=== PATIENT | male | born 1965 | race Caucasian/White ===

== ENCOUNTER 2018-03-08 11:50 | Day surgery (SDC) | payer BC ==
[~2018-03-08 11:50] MED LIST: ALPRAZolam 0.25 MG TAB PO PRN; ALPRAZolam 0.5 MG TAB PO PRN; ASPIRIN 325 MG TAB PO STA; ATORVASTATIN 80 MG TAB PO STA; NITROGLYCERIN SL TABS 0.4 MG TAB SUBLINGUAL PRN; SODIUM CHLORIDE 0.9% 1,000 ML in EMPTY BAG 1 BAG IV ONE
[2018-03-08] MEDS ORDERED: INSULIN ASPART 100 UNIT/ML 1 ML 10 ML VIAL SQ STA (12:38)
[2018-03-08 12:42] LABS: Basophils % (A) 1 %; Eosinophils # (A) 0.1 k/uL (0-0.7); Eosinophils % (A) 2 %; HCT 43.5 % (39.0-53.0); HGB 15.1 gm/dL (13.0-17.5); Lymphocytes # (A) 2.1 k/uL (1.0-4.8); Lymphocytes % (A) 34 %; MCH 30.6 pg (25.0-35.0); MCHC 34.7 g/dL (31.0-37.0); MCV 88.1 fL (80.0-100.0); Monocytes # (A) 0.4 k/uL (0-1.0); Monocytes % (A) 7 %; Neutrophils # (A) 3.3 k/uL (1.3-7.7); Neutrophils % (A) 55 %; Platelet Count 305 k/uL (150-450); RBC 4.94 m/uL (4.30-5.90); RDW 12.8 % (11.5-15.5); WBC 6.1 k/uL (3.8-10.6)
[2018-03-08 12:50] LABS: Anion Gap 16 mmol/L; Blood Urea Nitrogen 18 mg/dL (9-20); Calcium 10.2 mg/dL (8.4-10.2); Carbon Dioxide 22 mmol/L (22-30); Chloride 101 mmol/L (98-107); Glucose 256 mg/dL (74-99); Potassium 4.8 mmol/L (3.5-5.1); Sodium 139 mmol/L (137-145)
[2018-03-08 12:58] LABS: Glucose,Whole Blood 267 mg/dL (75-99)
[2018-03-08] MEDS ORDERED: LIDOCAINE 2% INJ 20 MG/ML (20 ML MDV) ONE (13:08)
[2018-03-08] MEDS ORDERED: fentaNYL (PF) 50 MCG/ML 2 ML AMP ONE (13:15)
[2018-03-08] MEDS ORDERED: MIDAZOLAM 2 MG/2 ML VIAL ONE (13:15)
[2018-03-08] MEDS ORDERED: fentaNYL (PF) 50 MCG/ML 2 ML AMP IV ONE (13:17)
[2018-03-08] MEDS ORDERED: MIDAZOLAM 2 MG/2 ML VIAL IV ONE (13:17)
[2018-03-08] MEDS ORDERED: LIDOCAINE 2% INJ 20 MG/ML SQ ONE (13:21)
[2018-03-08] MEDS ORDERED: METOPROLOL TARTRATE 5 MG/5 ML VIAL IVP ONE ×2 (13:26→13:28)
[2018-03-08] MEDS ORDERED: IOPAMIDOL-370 125ML BTL INJ ONE (13:39)
[2018-03-08] MEDS ORDERED: IOPAMIDOL-370 50ML BTL INJ ONE (13:44)
[2018-03-08] MEDS ORDERED: IOPAMIDOL-370 100ML BTL INJ ONE (13:52)
[2018-03-08] MEDS ORDERED: RX INFO: IV CONTRAST WAS GIVEN 1 EACH MISC MISCELLANE PRN (14:37)
--- NOTE | 2018-03-08 14:44 | CC ---
CARDIAC CATHETERIZATION REPORT Mr. Russell is a 52-year-old gentleman with a history of prior coronary artery bypass surgery as well as stent to the obtuse marginal branch in 2010. Patient spent most of the time in [place]. His recent stress test showed evidence of old inferior wall myocardial infarction with the lateral wall ischemia. Patient had a vasovagal episode 2 or 3 days ago. EKG showed some lateral wall changes. In view of the positive stress test, patient was recommended to have a cardiac catheterization for definitive diagnosis. PROCEDURE: The right groin was prepped and draped in the usual manner and the skin was infiltrated with 2% Xylocaine. The right femoral artery was entered using Seldinger technique. A #6-Slovenian sheath was placed in. Selective coronary angiography was then performed in multiple projections and the left ventricular pressures were obtained. Selective injection of the BARNES graft as well as vein graft was made aortic root injection was performed. HEMODYNAMICS: Left ventricular end-diastolic pressure is 12 to 16 mmHg prior to angiography. No gradient is noted across the aortic valve. SELECTIVE CORONARY ANGIOGRAPHY: Left main coronary artery is normally patent. LAD is a good caliber blood vessel and gives rise to a good size diagonal branch. Mid LAD is totally occluded with a complicated flow noted in the mid LAD. Circumflex coronary artery is totally occluded after the origin of the obtuse marginal branch. Obtuse marginal branch itself has a 90% stenosis. The right coronary arteries are diffusely diseased in its proximal and mid with 70-80% stenosis at its bifurcation to the PLV and PDA branch. Both are subtotally occluded with slow filling of the PDA and PLV branches. Note, the BARNES graft to the LAD is patent. The distal LAD is the smaller injection was performed which did not show any evidence of patent grafts. RECOMMENDATIONS: We will review the films with Dr. Tapan Morales and consider possibly stent to the andreafski obtuse marginal branch. MMODL / IJN: [id number] /
[2018-03-08 15:26] VITALS: BMI 32.3
[2018-03-08 16:57] VITALS: RESP 16
[2018-03-08 17:07] LABS: Glucose,Whole Blood 147 mg/dL (75-99)
[2018-03-08] MEDS: SODIUM CHLORIDE 0.9% 1,000 ML IV SCH (18:48)
[2018-03-08] MEDS ORDERED: PRASUGREL 10 MG TAB PO SCH (21:00)
[2018-03-08] MEDS ORDERED: ATORVASTATIN 80 MG TAB PO SCH (21:00)
[2018-03-08] MEDS ORDERED: INSULIN DETEMIR 100 UNIT/ML 10 ML VIAL SQ SCH (21:00)
[2018-03-08 21:23] LABS: Glucose,Whole Blood 285 mg/dL (75-99)
[2018-03-08] MEDS: INSULIN ASPART 100 UNIT/ML 1 ML 10 ML VIAL SQ SCH (21:31)
[2018-03-09 01:31] LABS: Hemoglobin A1C 8.5 % (4.0-6.0)
[2018-03-09 06:20] LABS: Glucose,Whole Blood 150 mg/dL (75-99)
[2018-03-09] MEDS: INSULIN ASPART 100 UNIT/ML 1 ML 10 ML VIAL SQ SCH ×4 (06:28→12:49)
[2018-03-09] MEDS: SODIUM CHLORIDE 0.9% 1,000 ML IV SCH (06:32)
[2018-03-09] MEDS ORDERED: INSULIN DETEMIR 100 UNIT/ML 10 ML VIAL SQ SCH (06:37)
[2018-03-09] MEDS ORDERED: PANTOPRAZOLE 40 MG TABLET PO SCH (07:30)
[2018-03-09 08:07] VITALS: PULSE 82
[2018-03-09] MEDS ORDERED: ASPIRIN 325 MG TAB PO SCH (09:00)
[2018-03-09] MEDS ORDERED: amLODIPine 2.5 MG TAB PO SCH (09:00)
[2018-03-09] MEDS ORDERED: LISINOPRIL 20 MG TAB PO SCH (09:00)
[2018-03-09] MEDS ORDERED: NIACIN TR 500 MG CAPSULE.ER PO SCH (09:00)
[2018-03-09 11:50] LABS: Glucose,Whole Blood 262 mg/dL (75-99)
[2018-03-09 13:07] VITALS: BP 140/75; TEMP 97.5
--- NOTE | 2018-03-09 14:19 | P.PN ---
Subjective Progress Note Date: 03/09/18 Discharge note This is a pleasant 52-year-old gentleman with history of prior bypass surgery as well as stenting to the obtuse marginal in 2010. He was residing in [place], his recent stress test showed evidence of old inferior wall myocardial infarction with lateral wall ischemia. Patient did have a vasovagal episode approximately 2-3 days prior to coming to the hospital. EKG showed some lateral wall changes, and view of the positive stress test he was recommended to undergo cardiac catheterization. Cardiac catheterization was performed yesterday by Dr. VC Reyes which revealed a 90% stenosis of the obtuse marginal branch. The right coronary arteries are diffusely diseased in its proximal and mid 70-80% stenosis at the bifurcation to the PLV and PDA branch, both are subtotally occluded with slow filling of the PDA and PLVL branches. Films were reviewed by Dr. MEHNAZ Morales in the decision was made to maximize medical therapy. Patient was seen and examined this morning, denies any chest pain. Blood pressure 140/70 with a heart rate in the 80s, respirations 16, temperature 97.5 O2sat 95% on room air. White blood cell count normal, hemoglobin 15.1, platelet count 305. Sodium 139, potassium 4.8, BUN 18, creatinine 0.8. Patient is currently on aspirin 325 mg daily, Lipitor 80 mg daily, insulin, lisinopril 20 mg daily, niacin 1500 mg daily, Effient 10 mg daily, Lopressor 25 mg twice a day, and Norvasc 2.5 mg daily. We will decrease the aspirin 81 mg daily and discharged patient home on these current medications along with sublingual nitroglycerin. Patient did have several questions regarding medical therapy versus intervention, and for this reason Dr. Matthias Morales will come and speak with the patient prior to discharge. Objective - Vital Signs Vital signs: Vital Signs Temp 97.1 F L 03/09/18 07:55 Pulse 82 03/09/18 07:55 Resp 16 03/09/18 07:55 BP 157/84 03/09/18 07:55 Pulse Ox 97 03/09/18 07:55 Intake & Output 03/08/18 03/09/18 03/09/18 18:59 06:59 18:59 Intake Total 270 75 Output Total 0 Balance 270 75 Weight 102.058 kg 102.8 kg Intake: IV 150 Intake, IV Titration 75 Amount Sodium Chloride 0.9% 1, 75 000 ml @ 75 mls/hr IV . [id number] [facility] Rx#:[id number] Oral 120 Output: Urine 0 Other: # Voids 1 - Exam PHYSICAL EXAMINATION: GENERAL: HEENT: Head is atraumatic, normocephalic. Pupils equal, round. Sclera anicteric. Conjunctiva are clear. Mucous membranes of the mouth are moist. Neck is supple. There is no elevated jugular venous pressure.] bruit is heard. HEART EXAMINATION: Heart S1, S2 normal. No murmur or gallop heard. CHEST EXAMINATION: Lungs are clear to auscultation and precussion. No chest wall tenderness is noted on palpation or with deep breathing. ABDOMEN: Soft, nontender. Bowel sounds are heard. No organomegaly noted. Right groin soft, no evidence of any hematoma. EXTREMITIES: 2+ peripheral pulses with no evidence of peripheral edema and no calf tenderness noted. NEUROLOGIC patient is awake, alert and oriented -3. . - Labs CBC & Chem 7: 03/08/18 12:30 03/08/18 12:30 Labs: Abnormal Lab Results - Last 24 Hours (Table) 03/08/18 03/08/18 03/08/18 Range/Units 12:29 12:30 12:30 Glucose 256 H (74-99) mg/dL POC Glucose (mg/dL) 267 H (75-99) mg/dL Hemoglobin A1c 8.5 H (4.0-6.0) % 03/08/18 03/08/18 03/09/18 Range/Units 16:56 21:20 06:19 Glucose (74-99) mg/dL POC Glucose (mg/dL) 147 H 285 H 150 H (75-99) mg/dL Hemoglobin A1c (4.0-6.0) % 03/09/18 Range/Units 11:39 Glucose (74-99) mg/dL POC Glucose (mg/dL) 262 H (75-99) mg/dL Hemoglobin A1c (4.0-6.0) % Assessment and Plan Plan: Assessment and plan #1 positive stress test status post cardiac catheterization which revealed an obtuse marginal branch with 90% stenosis, 70-80% stenosis in the right coronary artery at its bifurcation to the PLV and PDA branch, medical therapy advised. #2 known history of coronary artery disease with prior bypass surgery #3 diabetes #4 hypertension #5 hyperlipidemia Plan Patient may be discharged home once he speaks with Dr. Matthias Morales. FU appointment in the office with Dr. VC Reyes in one week. Discharge medications include aspirin 81 mg daily, Lipitor 80 mg daily, Norvasc 2-1/2 mg daily, insulin, lisinopril 20 mg daily, metoprolol 25 mg twice a day, niacin 1500 mg daily, Effient 10 mg daily, Protonix 40 mg daily, sublingual nitroglycerin as needed for chest pain. DNP note has been reviewed, I agree with a documented findings and plan of care. Patient was seen and examined.
--- NOTE | 2018-03-09 14:54 | PN ---
PROGRESS NOTE Mr. Russell underwent cardiac catheterization performed by Dr. Asim Reyes. In 2004, he underwent aortocoronary bypass surgery with 2 vein grafts and BARNES to LAD. The vein grafts were put to the distal RCA and a circumflex marginal. In 2010, he underwent stenting of the vein graft to the circumflex. He presented with symptoms of angina and has evidence of inferior wall hypokinesia with a prior inferior MO. Cardiac cath pictures were reviewed at the request of Dr. Asim Reyes. This patient has a chronic occlusion involving the circumflex and the amount of myocardium subtended by this chronic lesion is not significant. It is at best a small caliber vessel with limited amount of myocardium being supplied by it. I feel the success rate for this chronic occlusion is about 75%-80% with a risk that is substantial and the benefit somewhat limited given the amount of myocardium subtended by this vessel. However, there are several large collateral arteries that are coming filled from the left system and these are branches of either circumflex or distal RCA and these are of fair caliber and they can probably be grafted. I am therefore recommending that we pursue medical therapy, check for viability with a PET scan and if so, these collateral branches which are at least 2-2.1 mm on the angiogram can probably be grafted. Given the patient is relatively of a young age, I do not believe medical therapy will be a long-term option for him. I would aggressively pursue medical therapy and seek and evaluate for viability in the lateral wall and consider surgery as a viable option, since by surgery, we will be able to revascularize a lot more myocardium than the obtuse marginal which is small by antegrade approach. I explained my thoughts in great detail to the patient and his and at this time they can be discharged and follow up with Dr. Asim Reyes in one week. MMODL / IJN: [id number] /
[2018-03-09] MEDS ORDERED: METOPROLOL TARTRATE 25 MG TAB PO SCH (21:00)
[2018-03-10] MEDS ORDERED: ASPIRIN 81 MG PO SCH (09:00)
== END 2018-03-09 16:43 | disposition home or self-care (01) ==
LOC: CATHCVL 11:50 → 6SEL 14:01 → CATHCVL 03-09 16:43
PROVIDERS: ATTEND Internal Medicine Cardiovascular Disease
DX: I25.729 Atherosclerosis of autologous artery coronary artery bypass graft(s) with unspecified angina pectoris (principal); I25.119 Atherosclerotic heart disease of native coronary artery with unspecified angina pectoris; I25.82 Chronic total occlusion of coronary artery; R94.39 Abnormal result of other cardiovascular function study; I25.2 Old myocardial infarction; R55 Syncope and collapse; E78.2 Mixed hyperlipidemia; E11.9 Type 2 diabetes mellitus without complications; I10 Essential (primary) hypertension; F17.210 Nicotine dependence, cigarettes, uncomplicated; Z95.5 Presence of coronary angioplasty implant and graft; Z79.82 Long term (current) use of aspirin; Z79.4 Long term (current) use of insulin; Z79.899 Other long term (current) drug therapy
CPT/HCPCS: 93459; 93567; 80048; 85025; 83036; C1769 ×2; C1894; J2001; J2250; J3010; Q9967 ×3

== ENCOUNTER 2018-12-03 14:03 | Observation (INO) | payer BC ==
[2018-12-03 15:20] LABS: Basophils % (A) 0 %; Eosinophils # (A) 0.2 k/uL (0-0.7); Eosinophils % (A) 2 %; HCT 45.3 % (39.0-53.0); HGB 15.6 gm/dL (13.0-17.5); Lymphocytes % (A) 20 %; MCH 32.2 pg (25.0-35.0); MCHC 34.4 g/dL (31.0-37.0); MCV 93.8 fL (80.0-100.0); Mean Platelet Volume 6.1; Monocytes # (A) 0.6 k/uL (0-1.0); Monocytes % (A) 6 %; Neutrophils # (A) 6.9 k/uL (1.3-7.7); Neutrophils % (A) 70 %; Platelet Count 290 k/uL (150-450); RBC 4.83 m/uL (4.30-5.90); RDW 13.4 % (11.5-15.5); WBC 9.7 k/uL (3.8-10.6)
[2018-12-03 15:29] LABS: INR 0.9 (<1.2); Partial Thromboplastin Time 22.6 sec (22.0-30.0); Prothrombin Time 9.7 sec (9.0-12.0)
[2018-12-03 15:31] LABS: ALT 36 U/L (21-72); AST 28 U/L (17-59); Albumin 4.4 g/dL (3.5-5.0); Alkaline Phosphatase 88 U/L (38-126); Anion Gap 11 mmol/L; Blood Urea Nitrogen 15 mg/dL (9-20); Calcium 9.9 mg/dL (8.4-10.2); Carbon Dioxide 23 mmol/L (22-30); Chloride 103 mmol/L (98-107); Glucose 246 mg/dL (74-99); Potassium 5.2 mmol/L (3.5-5.1); Sodium 137 mmol/L (137-145); Total Bilirubin 0.8 mg/dL (0.2-1.3); Total Protein 7.1 g/dL (6.3-8.2)
--- NOTE | 2018-12-03 15:40 | ED ---
General Adult HPI - General Chief complaint: GI Bleed Stated complaint: GI BLEED Time Seen by Provider: 12/03/18 14:20 Source: patient, RN notes reviewed Mode of arrival: ambulatory Limitations: no limitations - History of Present Illness Initial comments: This is a 53-year-old male presents emergency Department stating this morning on the way to work he started having some significant crampy abdominal pain he got to work any had multiple bowel movements or diarrhea. Patient states and 2 of those he noticed bright red blood in quite a bit according to him. Patient denies any lightheadedness or dizziness. Patient denies any abdominal pain currently. Patient states he does occasionally get some cramping but no pain. Patient denies any blood thinners. Patient denies any rectal bleeding in the past. Patient states she's never had a colonoscopy. Patient denies any shortness as of breath patient denies any chest pain or palpitations. - Related Data Home Medications Medication Instructions Recorded Confirmed Insulin Glargine [Lantus] 70 unit SQ HS 02/19/15 12/03/18 Niacin [Niacin ER] 1,500 mg PO DAILY 02/19/15 12/03/18 Prasugrel [Effient] 10 mg PO HS 02/19/15 12/03/18 Aspirin 325 mg PO DAILY 03/08/18 12/03/18 Insulin Lispro [humaLOG Kwikpen] 25 unit SQ AC-TID 03/08/18 12/03/18 Nitroglycerin Sl Tabs [Nitrostat] 0.4 mg SUBLINGUAL Q5M PRN 03/08/18 12/03/18 Rosuvastatin [Crestor] 20 mg PO HS 03/08/18 12/03/18 amLODIPine [Norvasc] 2.5 mg PO DAILY 03/08/18 12/03/18 Praulent Injection 1 injection SQ Q14D 12/03/18 12/03/18 Previous Rx's Medication Instructions Recorded Omeprazole [PriLOSEC] 20 mg PO AC-BID #120 cap 02/20/15 Lisinopril [Zestril] 20 mg PO DAILY #30 tab 03/09/18 Allergies Allergy/AdvReac Type Severity Reaction Status Date / Time No Known Allergies Allergy Verified 12/03/18 15:29 Review of Systems ROS Statement: Those systems with pertinent positive or pertinent negative responses have been documented in the HPI. ROS Other: All systems not noted in ROS Statement are negative. Past Medical History Past Medical History: Diabetes Mellitus, Myocardial Infarction ([place]), Renal Disease Last Myocardial Infarction Date:: 2010 History of Any Multi-Drug Resistant Organisms: None Reported Past Surgical History: Coronary Bypass/CABG, Heart Catheterization With Stent, Tonsillectomy Additional Past Surgical History / Comment(s): EGD, EXCISION OF ABSCESS Past Anesthesia/Blood Transfusion Reactions: No Reported Reaction Date of Last Stent Placement:: 2010 Past Psychological History: No Psychological Hx Reported Smoking Status: Current every day smoker Past Alcohol Use History: Occasional Past Drug Use History: None Reported - Past Family History Father Family Medical History: Diabetes Mellitus Mother Family Medical History: Cancer, CVA/TIA General Exam - General Exam Comments Initial Comments: GENERAL: Patient is well-developed and well-nourished. Patient is nontoxic and well- hydrated and is in no acute distress. ENT: Neck is soft and supple. No significant lymphadenopathy is noted. Oropharynx is clear. Moist mucous membranes. Neck has full range of motion without eliciting any pain. EYES: The sclera were anicteric and conjunctiva were pink and moist. Extraocular movements were intact and pupils were equal round and reactive to light. Eyelids were unremarkable. PULMONARY: Unlabored respirations. Good breath sounds bilaterally. No audible rales rhonchi or wheezing was noted. CARDIOVASCULAR: There is a regular rate and rhythm without any murmurs gallops or rubs. ABDOMEN: Soft and nontender with normal bowel sounds. No palpable organomegaly was noted. There is no palpable pulsatile mass. SKIN: Skin is clear with no lesions or rashes and otherwise unremarkable. NEUROLOGIC: Patient is alert and oriented x3. Cranial nerves II through XII are grossly intact. Motor and sensory are also intact. Normal speech, volume and content. Symmetrical smile. MUSCULOSKELETAL: Normal extremities with adequate strength and full range of motion. No lower extremity swelling or edema. No calf tenderness. LYMPHATICS: No significant lymphadenopathy is noted PSYCHIATRIC: Normal psychiatric evaluation. Limitations: no limitations Course Vital Signs 12/03/18 14:18 Temperature 98.4 F Pulse Rate 92 Respiratory 18 Rate Blood Pressure 131/79 O2 Sat by Pulse 98 Oximetry Medical Decision Making - Medical Decision Making Patient had multiple episodes of bloody stool. The patient's hemoglobin was stable I spoke with Dr. Miguel he wanted to admit the patient have GI see the patient. I informed the patient of this. I wrote admitting orders. - Lab Data Result diagrams: 12/03/18 14:57 12/03/18 14:57 Lab Results 12/03/18 12/03/18 12/03/18 Range/Units 14:57 14:57 14:57 WBC 9.7 (3.8-10.6) k/uL RBC 4.83 (4.30-5.90) m/uL Hgb 15.6 (13.0-17.5) gm/dL Hct 45.3 (39.0-53.0) % MCV 93.8 (80.0-100.0) fL MCH 32.2 (25.0-35.0) pg MCHC 34.4 (31.0-37.0) g/dL RDW 13.4 (11.5-15.5) % Plt Count 290 (150-450) k/uL Neutrophils % 70 % Lymphocytes % 20 % Monocytes % 6 % Eosinophils % 2 % Basophils % 0 % Neutrophils # 6.9 (1.3-7.7) k/uL Lymphocytes # 2.0 (1.0-4.8) k/uL Monocytes # 0.6 (0-1.0) k/uL Eosinophils # 0.2 (0-0.7) k/uL Basophils # 0.0 (0-0.2) k/uL PT 9.7 (9.0-12.0) sec INR 0.9 (<1.2) APTT 22.6 (22.0-30.0) sec Sodium 137 (137-145) mmol/L Potassium 5.2 H (3.5-5.1) mmol/L Chloride 103 (98-107) mmol/L Carbon Dioxide 23 (22-30) mmol/L Anion Gap 11 mmol/L BUN 15 (9-20) mg/dL Creatinine 0.75 (0.66-1.25) mg/dL Est GFR (CKD-EPI)AfAm >90 (>60 ml/min/1.73 sqM) Est GFR (CKD-EPI)NonAf >90 (>60 ml/min/1.73 sqM) Glucose 246 H (74-99) mg/dL Calcium 9.9 (8.4-10.2) mg/dL Total Bilirubin 0.8 (0.2-1.3) mg/dL AST 28 (17-59) U/L ALT 36 (21-72) U/L Alkaline Phosphatase 88 (38-126) U/L Total Protein 7.1 (6.3-8.2) g/dL Albumin 4.4 (3.5-5.0) g/dL Blood Type Blood Type Recheck Antibody Screen Spec Expiration Date 12/03/18 Range/Units 14:57 WBC (3.8-10.6) k/uL RBC (4.30-5.90) m/uL Hgb (13.0-17.5) gm/dL Hct (39.0-53.0) % MCV (80.0-100.0) fL MCH (25.0-35.0) pg MCHC (31.0-37.0) g/dL RDW (11.5-15.5) % Plt Count (150-450) k/uL Neutrophils % % Lymphocytes % % Monocytes % % Eosinophils % % Basophils % % Neutrophils # (1.3-7.7) k/uL Lymphocytes # (1.0-4.8) k/uL Monocytes # (0-1.0) k/uL Eosinophils # (0-0.7) k/uL Basophils # (0-0.2) k/uL PT (9.0-12.0) sec INR (<1.2) APTT (22.0-30.0) sec Sodium (137-145) mmol/L Potassium (3.5-5.1) mmol/L Chloride (98-107) mmol/L Carbon Dioxide (22-30) mmol/L Anion Gap mmol/L BUN (9-20) mg/dL Creatinine (0.66-1.25) mg/dL Est GFR (CKD-EPI)AfAm (>60 ml/min/1.73 sqM) Est GFR (CKD-EPI)NonAf (>60 ml/min/1.73 sqM) Glucose (74-99) mg/dL Calcium (8.4-10.2) mg/dL Total Bilirubin (0.2-1.3) mg/dL AST (17-59) U/L ALT (21-72) U/L Alkaline Phosphatase (38-126) U/L Total Protein (6.3-8.2) g/dL Albumin (3.5-5.0) g/dL Blood Type A Positive Blood Type Recheck No Antibody Screen NEGATIVE Spec Expiration Date 12/06/20182356 Disposition Clinical Impression: Rectal bleeding Disposition: ADMITTED IP TO THIS HOSP Referrals: Federico Rivera MD [Primary Care Provider] - 1-2 days Time of Disposition: 16:41
--- NOTE | 2018-12-03 16:31 | CT ---
EXAMINATION TYPE: CT abdomen pelvis w con DATE OF EXAM: 12/03/2018 COMPARISON: None INDICATION: Bloody diarrhea today. DLP: 1366.1 mGycm, Automated exposure control for dose reduction was used. CONTRAST: 100 mL of Isovue 300. Study performed without Oral Contrast TECHNIQUE: Axial images were obtained from above the diaphragm to the pubic rami in the axial plane a t 5 mm thick sections. Reconstructed images are reviewed on the computer in the coronal plane. FINDINGS: Limited CT sections are obtained the lung bases. The lung bases are clear. Coronary artery calcific ations present CT ABDOMEN: Liver: There is moderate fatty infiltration to the liver. No discrete masses or cysts are evident. Spleen: Normal Pancreas: Atrophic Adrenal glands: The adrenal glands are normal. Gallbladder: Normal Kidneys: No masses are evident. No hydronephrosis is present. No cysts are present. Delayed images were obtained through the kidneys, which remain unremarkable. Aorta: Vascular calcification is within the aorta. Inferior vena cava: Normal. CT PELVIS: Loops of bowel within the abdomen and pelvis are normal. There are loops of bowel which are incom pletely distended or lack oral contrast limiting their evaluation. Appendix: Normal as visualized. Urinary bladder: Normal. Genitourinary structures: Prostate is mildly prominent. Some vascular calcification extends in the se braydon vesicles. Osseous structures: No suspicious lytic or sclerotic lesions. IMPRESSIONS: 1. No suspicious acute changes. 2. Moderate fatty infiltration liver.
[2018-12-03] MEDS ORDERED: SODIUM CHLORIDE 0.9% 1,000 ML IV ONE (16:43)
[2018-12-03] MEDS ORDERED: NITROGLYCERIN SL TABS 0.4 MG TAB SUBLINGUAL PRN (20:19)
[2018-12-03 20:44] LABS: Glucose,Whole Blood 189 mg/dL (75-99)
[2018-12-03] MEDS ORDERED: PRASUGREL 10 MG TAB PO SCH (21:00)
[2018-12-03] MEDS: INSULIN DETEMIR (LEVEMIR) 100 UNIT/ML SYR SQ SCH (21:34)
[2018-12-03] MEDS: INSULIN ASPART (NovoLOG) 100 UNIT/ML VIAL SQ SCH (21:34)
[2018-12-03] MEDS: ATORVASTATIN 40 MG TAB PO SCH (21:35)
[2018-12-04 02:23] LABS: Basophils % (A) 1 %; Eosinophils # (A) 0.2 k/uL (0-0.7); Eosinophils % (A) 3 %; HCT 42.7 % (39.0-53.0); HGB 14.6 gm/dL (13.0-17.5); Lymphocytes # (A) 2.1 k/uL (1.0-4.8); Lymphocytes % (A) 26 %; MCH 32.4 pg (25.0-35.0); MCHC 34.1 g/dL (31.0-37.0); MCV 95.1 fL (80.0-100.0); Mean Platelet Volume 5.9; Monocytes # (A) 0.6 k/uL (0-1.0); Monocytes % (A) 8 %; Neutrophils # (A) 4.8 k/uL (1.3-7.7); Neutrophils % (A) 61 %; Platelet Count 283 k/uL (150-450); RBC 4.49 m/uL (4.30-5.90); RDW 13.2 % (11.5-15.5); WBC 7.9 k/uL (3.8-10.6)
[2018-12-04 02:51] LABS: Glucose,Whole Blood 111 mg/dL (75-99)
[2018-12-04 04:55] LABS: Hemoglobin A1C 7.8 % (4.0-6.0)
[2018-12-04 07:03] LABS: Glucose,Whole Blood 146 mg/dL (75-99)
[2018-12-04] MEDS: PANTOPRAZOLE 40 MG TABLET PO SCH ×2 (07:33→16:06)
[2018-12-04] MEDS: INSULIN ASPART (NovoLOG) 100 UNIT/ML VIAL SQ SCH ×4 (07:33→21:36)
[2018-12-04] MEDS: LISINOPRIL 20 MG TAB PO SCH (07:33)
[2018-12-04] MEDS: amLODIPine 2.5 MG TAB PO SCH (07:33)
[2018-12-04] MEDS: NIACIN TR 500 MG CAPLET PO SCH (08:19)
[2018-12-04 12:25] LABS: Glucose,Whole Blood 183 mg/dL (75-99)
[2018-12-04] MEDS ORDERED: PEG 3350-NA SULF,BICARB,CL/KCL 4,000 ML BOTTLE PO ONE (15:34)
--- NOTE | 2018-12-04 16:41 | P.CONS ---
History of Present Illness - Reason for Consult Consult date: 12/04/18 abdominal pain GI bleed Requesting physician: Federico Rivera - Chief Complaint rectal bleeding - History of Present Illness 53-year-old gentleman with no history of bowel disorders or GI bleeds presents with severe lower abdominal cramping followed by multiple episodes of bloody diarrhea yesterday. Patient still passing blood tinged bowel movements this morning. Pain is crampy mostly in the lower abdomen. No NSAIDs excessive aspirin usage. Has a few mixed drinks every night. No recent sick contacts. 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 Afebrile.no recent antibiotics. admission hemoglobin 14.6. White count 7.9. CT abdomen and pelvis no acute changes. Fatty infiltration of liver. Review of Systems Constitutional: Denies fever, chills, sweats, weight gain, or loss. HEENT: Negative for migraines, blurred vision or loss, earaches, drainage, tinnitus, oral mucosal lesions, dysphagia, or odynophagia. Cardiac: Negative for chest pain, arrhythmias, or palpitation. Respiratory: Negative for shortness of breath, hemoptysis, cough, or sputum production. Gastrointestinal: See HPI for pertinent findings. Genitourinary: Negative for hematuria, urgency, frequency, polyuria, dysuria, or penile discharge. Musculoskeletal: Negative for muscle aches, swelling, arthritis, and arthralgias. Neurologic: Negative for stroke or TIA. Endocrine: Negative for thyroid problems. Skin: Negative for rash or itching. Psychiatric: Negative history for depression and anxiety Past Medical History Past Medical History: Diabetes Mellitus, Myocardial Infarction ([place]), Renal Disease Last Myocardial Infarction Date:: 2010 History of Any Multi-Drug Resistant Organisms: None Reported Past Surgical History: Coronary Bypass/CABG, Heart Catheterization With Stent, Tonsillectomy Additional Past Surgical History / Comment(s): EGD, EXCISION OF ABSCESS Past Anesthesia/Blood Transfusion Reactions: No Reported Reaction Date of Last Stent Placement:: 2010 Past Psychological History: No Psychological Hx Reported Smoking Status: Current every day smoker Past Alcohol Use History: Occasional Past Drug Use History: None Reported - Past Family History Father Family Medical History: Diabetes Mellitus Mother Family Medical History: Cancer, CVA/TIA Medications and Allergies Home Medications Medication Instructions Recorded Confirmed Type Insulin Glargine [Lantus] 70 unit SQ HS 02/19/15 12/03/18 History Niacin [Niacin ER] 1,500 mg PO DAILY 02/19/15 12/03/18 History Prasugrel [Effient] 10 mg PO HS 02/19/15 12/03/18 History Omeprazole [PriLOSEC] 20 mg PO AC-BID #120 cap 02/20/15 12/03/18 Rx Aspirin 325 mg PO DAILY 03/08/18 12/03/18 History Insulin Lispro [humaLOG Kwikpen] 25 unit SQ AC-TID 03/08/18 12/03/18 History Nitroglycerin Sl Tabs [Nitrostat] 0.4 mg SUBLINGUAL Q5M PRN 03/08/18 12/03/18 History Rosuvastatin [Crestor] 20 mg PO HS 03/08/18 12/03/18 History amLODIPine [Norvasc] 2.5 mg PO DAILY 03/08/18 12/03/18 History Lisinopril [Zestril] 20 mg PO DAILY #30 tab 03/09/18 12/03/18 Rx Praulent Injection 1 injection SQ Q14D 12/03/18 12/03/18 History Allergies Allergy/AdvReac Type Severity Reaction Status Date / Time No Known Allergies Allergy Verified 12/03/18 15:29 Physical Exam Vitals: Vital Signs Temp Pulse Pulse Resp BP BP Pulse Ox 12/04/18 15:42 16 12/04/18 15:00 98.2 F 82 16 132/80 98 12/04/18 08:00 20 12/04/18 06:39 98.7 F 99 20 135/88 97 12/03/18 22:35 98.7 F 90 16 121/79 96 12/03/18 20:30 16 12/03/18 19:00 98.1 F 72 18 139/70 98 Intake and Output 12/04/18 12/04/18 12/04/18 06:59 14:59 22:59 Intake Total 600 Balance 600 Intake: Intake, IV Titration 600 Amount Sodium Chloride 0.9% 1, 600 000 ml @ 75 mls/hr IV . [id number] Rx#:[id number] Other: Voiding Method Toilet Toilet # Voids 3 # Bowel Movements 2 General appearance: The patient is alert, oriented, in no acute distress. HET: Head is normocephalic and atraumatic. Pupils are equal and reactive. Oropharynx is clear without lesions. Neck: Supple without lymphadenopathy. Trachea midline. Heart: S1 S2. Regular rate and rhythm. Lungs: No crackles or wheezes are heard. Abdomen: Soft, mild tenderness to bilateral lower abdome, nondistended with bowel sounds. No peritoneal signs. No palpable organomegaly or masses. Extremities: Normal skin color and turgor. No cyanosis, rash, ulceration, clubbing, or edema. Radial and pedal pulses are 2/4 bilaterally. Neurological: No focal deficits. Strength and sensation are grossly intact. Results CBC & Chem 7: 12/04/18 01:20 12/03/18 14:57 Labs: Abnormal Lab Results - Last 24 Hours (Table) 12/03/18 12/03/18 12/04/18 Range/Units 14:57 20:43 02:48 POC Glucose (mg/dL) 189 H 111 H (75-99) mg/dL Hemoglobin A1c 7.8 H (4.0-6.0) % 12/04/18 12/04/18 Range/Units 06:57 12:23 POC Glucose (mg/dL) 146 H 183 H (75-99) mg/dL Hemoglobin A1c (4.0-6.0) % CT scan - abdomen: report reviewed (Dr. Jordan) Assessment and Plan (1) Rectal bleeding Narrative/Plan: Actively passing bloody bowel movements this morning. Possible acute ischemic colitis possible inflammatory possible self limiting infectious. Status: Acute Code(s): K62.5 - HEMORRHAGE OF ANUS AND RECTUM SNOMED Code(s) : 18297985 (2) Abdominal pain Status: Acute Code(s): R10.9 - UNSPECIFIED ABDOMINAL PAIN SNOMED Code(s): 06556626 (3) Acute GI bleeding Status: Acute Code(s): K92.2 - GASTROINTESTINAL HEMORRHAGE, UNSPECIFIED SNOMED Code(s): 87691922 Plan: 1. Colonoscopy in am. 2. Stool studies. 3. CRP/sed rate. 4. Clear liquids NPO after midnight. The foot worker has discussed the risks, benefits and alternative therapies for the above-mentioned procedure and for both sedation/analgesia as well as necessary blood product administration, if indicated, as they pertain to this patient. The patient has indicated understanding and acceptance of the risks and procedures discussed. Thank you for this kind referral and the opportunity to participate in the care of your patient. This consultation was discussed with Dr. Jordan. The impression and plan of care have been directed as dictated.
--- NOTE | 2018-12-04 16:52 | P.HPIM ---
History of Present Illness H&P Date: 12/04/18 Chief Complaint: Lower GI bleeding. This is a history and physical on a 53-year-old male with known history of coronary disease and diabetes with hyperlipidemia with familial hyper lipidemia who was complaining of new onset GI bleeding. Left lower quadrant abdominal pain to deep palpation was noted on examination in the emergency room. But because of his multiple comorbidities he is appropriately admitted for GI bleed. No previous history of GI bleeding in the past. No hematuria. No overt melena or hematochezia stated. He denies any illicit substance abuse or alcohol abuse. Review of Systems Constitutional: Denies chills, Denies fever Ears, nose, mouth and throat: Denies headache, Denies sore throat Cardiovascular: Denies chest pain, Denies shortness of breath Respiratory: Denies cough Gastrointestinal: Denies abdominal pain, Denies diarrhea, Denies nausea, Denies vomiting Musculoskeletal: Denies myalgias Past Medical History Past Medical History: Diabetes Mellitus, Myocardial Infarction ([place]), Renal Disease Last Myocardial Infarction Date:: 2010 History of Any Multi-Drug Resistant Organisms: None Reported Past Surgical History: Coronary Bypass/CABG, Heart Catheterization With Stent, Tonsillectomy Additional Past Surgical History / Comment(s): EGD, EXCISION OF ABSCESS Past Anesthesia/Blood Transfusion Reactions: No Reported Reaction Date of Last Stent Placement:: 2010 Past Psychological History: No Psychological Hx Reported Smoking Status: Current every day smoker Past Alcohol Use History: Occasional Past Drug Use History: None Reported - Past Family History Father Family Medical History: Diabetes Mellitus Mother Family Medical History: Cancer, CVA/TIA Medications and Allergies Home Medications Medication Instructions Recorded Confirmed Type Insulin Glargine [Lantus] 70 unit SQ HS 02/19/15 12/03/18 History Niacin [Niacin ER] 1,500 mg PO DAILY 02/19/15 12/03/18 History Prasugrel [Effient] 10 mg PO HS 02/19/15 12/03/18 History Omeprazole [PriLOSEC] 20 mg PO AC-BID #120 cap 02/20/15 12/03/18 Rx Aspirin 325 mg PO DAILY 03/08/18 12/03/18 History Insulin Lispro [humaLOG Kwikpen] 25 unit SQ AC-TID 03/08/18 12/03/18 History Nitroglycerin Sl Tabs [Nitrostat] 0.4 mg SUBLINGUAL Q5M PRN 03/08/18 12/03/18 History Rosuvastatin [Crestor] 20 mg PO HS 03/08/18 12/03/18 History amLODIPine [Norvasc] 2.5 mg PO DAILY 03/08/18 12/03/18 History Lisinopril [Zestril] 20 mg PO DAILY #30 tab 03/09/18 12/03/18 Rx Praulent Injection 1 injection SQ Q14D 12/03/18 12/03/18 History Allergies Allergy/AdvReac Type Severity Reaction Status Date / Time No Known Allergies Allergy Verified 12/03/18 15:29 Physical Exam Vitals: Vital Signs Temp Pulse Pulse Resp BP BP Pulse Ox 12/04/18 15:42 16 12/04/18 15:00 98.2 F 82 16 132/80 98 12/04/18 08:00 20 12/04/18 06:39 98.7 F 99 20 135/88 97 12/03/18 22:35 98.7 F 90 16 121/79 96 12/03/18 20:30 16 12/03/18 19:00 98.1 F 72 18 139/70 98 Intake and Output 12/04/18 12/04/18 12/04/18 06:59 14:59 22:59 Intake Total 600 Balance 600 Intake: Intake, IV Titration 600 Amount Sodium Chloride 0.9% 1, 600 000 ml @ 75 mls/hr IV . [id number] Rx#:[id number] Other: Voiding Method Toilet Toilet # Voids 3 # Bowel Movements 2 - Constitutional General appearance: obese - EENT Eyes: EOMI - Neck Neck: no lymphadenopathy - Respiratory Respiratory: bilateral: CTA - Cardiovascular Rhythm: regular Heart sounds: normal: S1, S2 Abnormal Heart Sounds: no S3 Gallop - Gastrointestinal General gastrointestinal: soft, no tenderness - Neurologic Neurologic: CNII-XII intact Results CBC & Chem 7: 12/04/18 01:20 12/03/18 14:57 Labs: Abnormal Lab Results - Last 24 Hours (Table) 12/03/18 12/03/18 12/04/18 Range/Units 14:57 20:43 02:48 POC Glucose (mg/dL) 189 H 111 H (75-99) mg/dL Hemoglobin A1c 7.8 H (4.0-6.0) % 12/04/18 12/04/18 Range/Units 06:57 12:23 POC Glucose (mg/dL) 146 H 183 H (75-99) mg/dL Hemoglobin A1c (4.0-6.0) % Thrombosis Risk Factor Assmnt - Choose All That Apply Any of the Below Risk Factors Present?: Yes Each Factor Represents 1 point: Age 41-60 years, Obesity (BMI >25) Other Risk Factors: No Other congenital or acquired thrombophilia - If yes, enter type in comment: No Thrombosis Risk Factor Assessment Total Risk Factor Score: 2 Thrombosis Risk Factor Assessment Level: Low Risk Assessment and Plan (1) Diabetes Current Visit: Yes Status: Acute Code(s): E11.9 - TYPE 2 DIABETES MELLITUS WITHOUT COMPLICATIONS SNOMED Code(s): 71404112 (2) CAD (coronary artery disease) Current Visit: Yes Status: Acute Code(s): I25.10 - ATHSCL HEART DISEASE OF [place] CORONARY ARTERY W/O ANG PCTRS SNOMED Code(s): 52414780 (3) Rectal bleeding Current Visit: Yes Status: Acute Code(s): K62.5 - HEMORRHAGE OF ANUS AND RECTUM SNOMED Code(s): 35347897 (4) Abdominal pain Current Visit: No Status: Acute Code(s): R10.9 - UNSPECIFIED ABDOMINAL PAIN SNOMED Code(s): 56080620 Plan: Consult gastroenterology. Check CBC serially. Otherwise, reconcile home medications. Blood thinning medication at this time. We will continue to follow. Time with Patient: Greater than 30
[2018-12-04] MEDS: LACTATED RINGERS 1,000 ML IV SCH (16:56)
[2018-12-04 17:19] LABS: Glucose,Whole Blood 203 mg/dL (75-99)
[2018-12-04 20:45] LABS: Glucose,Whole Blood 179 mg/dL (75-99)
[2018-12-04] MEDS: ATORVASTATIN 40 MG TAB PO SCH (21:31)
[2018-12-04] MEDS: INSULIN DETEMIR (LEVEMIR) 100 UNIT/ML SYR SQ SCH (21:36)
[2018-12-05 02:29] LABS: Glucose,Whole Blood 184 mg/dL (75-99)
[2018-12-05 07:26] LABS: Glucose,Whole Blood 168 mg/dL (75-99)
[2018-12-05 07:56] VITALS: BP 141/86; PULSE 96; RESP 16; TEMP 98.5
[2018-12-05] MEDS: PANTOPRAZOLE 40 MG TABLET PO SCH ×2 (07:58→17:37)
[2018-12-05] MEDS: amLODIPine 2.5 MG TAB PO SCH (07:58)
[2018-12-05] MEDS: LISINOPRIL 20 MG TAB PO SCH (07:58)
[2018-12-05] MEDS: NIACIN TR 500 MG CAPLET PO SCH (07:58)
[2018-12-05] MEDS: INSULIN ASPART (NovoLOG) 100 UNIT/ML VIAL SQ SCH ×3 (07:58→17:38)
[2018-12-05 11:45] LABS: Glucose,Whole Blood 174 mg/dL (75-99)
[2018-12-05] MEDS ORDERED: PROPOFOL 10 MG/ML 20 ML VIAL IV ONE (13:59)
[2018-12-05] MEDS ORDERED: LIDOCAINE 1% INJ 10MG/ML (20 ML MDV) ONE (13:59)
[2018-12-05] MEDS ORDERED: LACTATED RINGERS 1,000 ML IV ONE (14:06)
--- NOTE | 2018-12-05 15:19 | P.PCN ---
Date of Procedure: 12/05/18 Description of Procedure: BRIEF HISTORY: 53-year-old gentleman with no history of bowel disorders or GI bleeds presents with severe lower abdominal cramping followed by multiple episodes of bloody diarrhea yesterday. Patient still passing blood tinged bowel movements this morning. Pain is crampy mostly in the lower abdomen. No NSAIDs excessive aspirin usage. No recent sick contacts. 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 Afebrile.no recent antibiotics. Admission hemoglobin 14.6. White count 7.9. CT abdomen and pelvis no acute changes. Fatty infiltration of liver. PROCEDURE PERFORMED: Colonoscopy with cold biopsy and polypectomy. PREOPERATIVE DIAGNOSIS: Hematochezia, no prior colonoscopy. ESTIMATED BLOOD LOSS: Minimal. IV sedation per Anesthesia. PROCEDURE: After informed consent was obtained, the patient, was brought into the endoscopy unit. IV sedation was administered by Anesthesia under continuous monitoring. Digital rectal examination was normal. Initially the Olympus CF- 190 flexible video colonoscope was then inserted in the rectum, gradually advanced into the cecum without any difficulty. Careful examination was performed as the scope was gradually being withdrawn. Ileocecal valve and the appendiceal orifice were visualized and appeared normal. Prep was fair with liquid stool noted throughout the colon, copious lavage was attempted to remove the stool which improved visualization. Mucosa of the cecum, ascending colon, transverse colon, descending colon, sigmoid colon, and rectum appeared normal except for some mild erythema in the mid to distal descending colon. Biopsies were taken of the right colon, transverse colon, left colon and rectum. Cold forcep polypectomy of a 3 mm cecal polyp. Hot snare polypectomy of a 1 cm ascending colon polyp. Cold snare polypectomy of a 3 mm ascending colon polyp. Cold forceps polypectomy of a 3 mm transverse colon polyp. Cold forcep polypectomy of 2 rectal polyps measuring 2 mm and 3 mm respectively. Retroflexion was performed in the rectum and no lesions were seen, mild internal hemorrhoids noted on retroflexion. The patient tolerated the procedure well. IMPRESSION: 1. Mild erythema of the mid to distal descending colon suggestive of possible ischemic colitis. 2. Random biopsies of the right colon, left colon, transverse colon and rectum. 3. Cold snare polypectomy of an ascending colon polyp. Hot snare polypectomy of an ascending colon polyp. Cold forcep polypectomy of polyps in the cecum, transverse colon and rectum. RECOMMENDATIONS: Findings of this examination were discussed with the patient and his . Okay for full liquid diet. Await pathology from biopsies. Would recommend repeat colonoscopy in 3 years given fair prep. Follow up with gastroenterology one to 2 weeks after discharge.
[2018-12-05] MEDS: LACTATED RINGERS 1,000 ML IV SCH (16:17)
[2018-12-05 17:13] LABS: Glucose,Whole Blood 199 mg/dL (75-99)
--- NOTE | 2018-12-12 22:44 | P.DS ---
Providers Date of admission: 12/03/18 16:59 Attending physician: Federico Rivera Consults: 12/03/18 16:43 Consult Physician Urgent Consulting Provider: Toni Duke Consult Reason/Comments: GI bleeds Do you want consulting provider notified?: Yes Primary care physician: Federico Rivera - Discharge Diagnosis(es) (1) Diabetes Status: Acute (2) CAD (coronary artery disease) Status: Acute (3) Rectal bleeding Status: Acute (4) Abdominal pain Status: Acute Hospital Course: This is a discharge summary on a 53-year-old white male with known history of diabetes with known coronary artery disease who came in with lower GI bleeding. The patient was stabilized appropriately and ended up having endoscopic procedure which did not show significant issue. There was no active bleeding on discharge. The patient's blood count was stable and the patient was discharged to follow-up with me in approximately one week. Patient Condition at Discharge: Stable Plan - Discharge Summary New Discharge Prescriptions: No Action RX: Insulin Glargine [Lantus] 70 unit SQ HS RX: Prasugrel [Effient] 10 mg PO HS RX: Niacin [Niacin ER] 1,500 mg PO DAILY RX: Omeprazole [PriLOSEC] 20 mg PO AC-BID #120 cap RX: Nitroglycerin Sl Tabs [Nitrostat] 0.4 mg SUBLINGUAL Q5M PRN PRN Reason: Chest Pain RX: Aspirin 325 mg PO DAILY RX: Rosuvastatin [Crestor] 20 mg PO HS RX: amLODIPine [Norvasc] 2.5 mg PO DAILY RX: Insulin Lispro [humaLOG Kwikpen] 25 unit SQ AC-TID RX: Lisinopril [Zestril] 20 mg PO DAILY #30 tab Praulent Injection 1 injection SQ Q14D Discharge Medication List RX: Insulin Glargine [Lantus] 70 unit SQ HS 02/19/15 [History] RX: Niacin [Niacin ER] 1,500 mg PO DAILY 02/19/15 [History] RX: Prasugrel [Effient] 10 mg PO HS 02/19/15 [History] RX: Omeprazole [PriLOSEC] 20 mg PO AC-BID #120 cap 02/20/15 [Rx] RX: Aspirin 325 mg PO DAILY 03/08/18 [History] RX: Insulin Lispro [humaLOG Kwikpen] 25 unit SQ AC-TID 03/08/18 [History] RX: Nitroglycerin Sl Tabs [Nitrostat] 0.4 mg SUBLINGUAL Q5M PRN 03/08/18 [ History] RX: Rosuvastatin [Crestor] 20 mg PO HS 03/08/18 [History] RX: amLODIPine [Norvasc] 2.5 mg PO DAILY 03/08/18 [History] RX: Lisinopril [Zestril] 20 mg PO DAILY #30 tab 03/09/18 [Rx] Praulent Injection 1 injection SQ Q14D 12/03/18 [History] Follow up Appointment(s)/Referral(s): Federico Rivera MD [Primary Care Provider] - 1-2 days Patient Instructions/Handouts: Colonoscopy (DC) Discharge Disposition: HOME SELF-CARE
== END 2018-12-05 18:46 | disposition home or self-care (01) ==
LOC: EC 14:03 → 4MS4W 16:59
PROVIDERS: ADMIT Family Medicine; ATTEND Family Medicine
DX: K62.5 Hemorrhage of anus and rectum (principal); D12.0 Benign neoplasm of cecum; D12.2 Benign neoplasm of ascending colon; D12.3 Benign neoplasm of transverse colon; K63.5 Polyp of colon; D12.8 Benign neoplasm of rectum; R19.7 Diarrhea, unspecified; I25.10 Atherosclerotic heart disease of native coronary artery without angina pectoris; E78.49 Other hyperlipidemia; I25.2 Old myocardial infarction; E11.9 Type 2 diabetes mellitus without complications; N28.9 Disorder of kidney and ureter, unspecified; E66.9 Obesity, unspecified; Z68.33 Body mass index [BMI] 33.0-33.9, adult; K76.0 Fatty (change of) liver, not elsewhere classified; Z95.1 Presence of aortocoronary bypass graft; Z95.5 Presence of coronary angioplasty implant and graft; F17.200 Nicotine dependence, unspecified, uncomplicated; Z79.4 Long term (current) use of insulin; Z79.899 Other long term (current) drug therapy; Z79.82 Long term (current) use of aspirin; Z82.3 Family history of stroke; Z80.9 Family history of malignant neoplasm, unspecified
CPT/HCPCS: 96360; 96361 ×2; 99285; 36415; 86900; 86901; 88305; 80053; 85652; 85025 ×2; 85610; 85730; 86850; 86140; 83993; 87045; 83630; 87046; 83036; 74177; 45380; 45384; 45385; G0378 ×3; J2001; J2704; Q9967

== ENCOUNTER → 2020-09-25 | Outpatient (CLI) | payer BC ==
--- NOTE | 2020-09-25 12:42 | XR ---
EXAMINATION TYPE: XR foot complete RT DATE OF EXAM: 09/25/2020 COMPARISON: None HISTORY: Diabetic sore TECHNIQUE: Three-view right foot FINDINGS: No acute fractures or dislocations are evident. Joint spaces are preserved. No suspicious c ortical erosion to suggest osteomyelitis. Three phase bone scan could be performed for sufficient cli nical suspicion. There is soft tissue changes are noted of the ball of the foot IMPRESSION: 1. Soft tissue changes. 2. No acute osseous abnormality
[2020-09-25 19:46] LABS: Albumin 4.7 g/dL (3.80-4.90); Albumin/Globulin Ratio 2.24 (1.60-3.17); Anion Gap 11.5 mmol/L (4.00-12.00); BUN/Creat Ratio 14.44 Ratio (12.00-20.00); Carbon Dioxide 24.5 mmol/L (21.6-31.8); Globulin 2.1 g/dL (1.6-3.3); Non-African American GFR(CKD) 95.8 (60.0-200.0); Potassium 4.7 mmol/L (3.5-5.5); Total Bilirubin 0.5 mg/dL (0.3-1.2); Total Protein 6.8 g/dL (6.2-8.2)
[2020-09-25 20:29] LABS: Hemoglobin A1C 7.7 % (4.0-6.0)
== END | disposition home or self-care (01) ==
LOC: LABWHC1 10:44
PROVIDERS: ATTEND Podiatrist
DX: L97.512 Non-pressure chronic ulcer of other part of right foot with fat layer exposed (principal); E10.42 Type 1 diabetes mellitus with diabetic polyneuropathy; I25.9 Chronic ischemic heart disease, unspecified
CPT/HCPCS: 36415; 80053; 83036; 84134

== ENCOUNTER → 2021-02-03 | Outpatient (CLI) | payer BC | END | disposition home or self-care (01) | LOC: LABWHC1 14:58 | PROVIDERS: ATTEND Thoracic Surgery (Cardiothoracic Vascular Surgery) | DX: M86.171 Other acute osteomyelitis, right ankle and foot (principal) | CPT/HCPCS: 36415; 84550 ==

== ENCOUNTER → 2021-02-15 | Outpatient (CLI) | payer BC ==
--- NOTE | 2021-02-15 13:16 | XR ---
EXAMINATION TYPE: XR foot limited RT DATE OF EXAM: 02/15/2021 COMPARISON: 09/25/2020 HISTORY: Swelling and soft tissue sore TECHNIQUE: Three views are submitted. FINDINGS: There is destructive change and fragmentation with soft tissue heterotopic ossification involving the first metatarsal. Lucency involving the base of the proximal phalanx is suspicious for osteomyelitis as well. There is diffuse soft tissue edema. Arthropathy involving all DIP digits with most marked f indings involving the second digit. IMPRESSION: 1. Destructive change in pathologic fracture involving the first metatarsal with soft tissue ossifica tion. Findings suggestive of osteomyelitis. Reduced mineralization along the base of the proximal pha lanx of the first digit also is suggestive of osteomyelitis.
== END | disposition home or self-care (01) ==
LOC: RADXRMAIN 12:08
PROVIDERS: ATTEND Family Medicine
DX: M84.474A Pathological fracture, right foot, initial encounter for fracture (principal)

== ENCOUNTER → 2021-03-10 | Outpatient (CLI) | payer BC ==
[2021-03-10 22:58] LABS: Basophils # (A) 0.05 X 10*3/uL (0.00-0.10); Basophils % (A) 0.6 %; Eosinophils # (A) 0.12 X 10*3/uL (0.04-0.35); Eosinophils % (A) 1.4 %; HCT 42.3 % (39.6-50.0); Lymphocytes # (A) 2.47 X 10*3/uL (0.90-5.00); Lymphocytes % (A) 29.3 %; MCH 33.7 pg (27.0-32.0); MCHC 35.5 g/dL (32.0-37.0); MCV 95.1 fL (80.0-97.0); Mean Platelet Volume 9.4 fL (9.5-12.2); Monocytes # (A) 0.72 X 10*3/uL (0.20-1.00); Monocytes % (A) 8.6 %; Neutrophils # (A) 5.01 X 10*3/uL (1.80-7.70); Neutrophils % (A) 59.5 %; Platelet Count 260 X 10*3/uL (140-440); RBC 4.45 X 10*6/uL (4.40-5.60); RDW 12.7 % (11.5-14.5); WBC 8.42 X 10*3/uL (4.50-10.00)
[2021-03-11 00:41] LABS: Erythrocyte Sedimentation Rate 9 mm/Hr (0-20)
== END | disposition home or self-care (01) ==
LOC: LABWHC1 15:46
PROVIDERS: ATTEND Orthopaedic Surgery Foot and Ankle Surgery
DX: M14.60 Charcot's joint, unspecified site (principal); M79.671 Pain in right foot
CPT/HCPCS: 36415; 85025; 85652; 86140

== ENCOUNTER → 2021-03-11 | Outpatient (CLI) | payer BC ==
--- NOTE | 2021-03-12 19:52 | NM ---
EXAMINATION TYPE: NM bone 3 phase DATE OF EXAM: 03/12/2021 COMPARISON: Plain film 02/15/2021 HISTORY: M79.671 M14.60 Triple phase bone scintigraphy was performed following the injection of 24.6 mCi Tc 99m MDP. Immedia te images and 3 hours post injection images acquired. FINDINGS: Limited scanning was performed of the feet. There is increased blood flow, blood pool, and on delayed imaging involving the first digit of the ri ght foot corresponding to the finding, abnormality. IMPRESSION: Findings are consistent with osteomyelitis to the first digit of the right foot.
== END | disposition home or self-care (01) ==
LOC: RADNMMAIN 06:58
PROVIDERS: ATTEND Orthopaedic Surgery Foot and Ankle Surgery
DX: M79.671 Pain in right foot (principal)
CPT/HCPCS: 78102; A9541; 78315

== ENCOUNTER → 2021-03-19 | Outpatient (CLI) | payer BC ==
[2021-03-20 07:36] LABS: Chol/HDL Ratio 2.95
== END | disposition home or self-care (01) ==
LOC: LABWHC1 10:16
PROVIDERS: ATTEND Internal Medicine
DX: I25.10 Atherosclerotic heart disease of native coronary artery without angina pectoris (principal); E78.5 Hyperlipidemia, unspecified
CPT/HCPCS: 36415; 80061; 83721

== ENCOUNTER → 2021-03-25 | Outpatient (CLI) | payer BC ==
--- NOTE | 2021-03-25 15:37 | US ---
EXAMINATION TYPE: US carotid duplex BILAT DATE OF EXAM: 03/25/2021 COMPARISON: NONE CLINICAL HISTORY: R09.89 BRUIT. EXAM MEASUREMENTS: RIGHT: Peak Systolic Velocity (PSV) cm/sec ----- Right CCA: 109.9 ----- Right ICA: 79.8 ----- Right ECA: 93.0 ICA/CCA ratio: 0.7 RIGHT: End Diastole cm/sec ----- Right CCA: 19.8 ----- Right ICA: 21.5 ----- Right ECA: 16.0 LEFT: Peak Systolic Velocity (PSV) cm/sec ----- Left CCA: 95.3 ----- Left ICA: 95.2 ----- Left ECA: 141.1 ICA/CCA ratio: 1.0 LEFT: End Diastole cm/sec ----- Left CCA: 18.9 ----- Left ICA: 25.9 ----- Left ECA: 16.9 VERTEBRALS (direction of flow): Right Vertebral: Antegrade Left Vertebral: Antegrade Rhythm: Normal Moderate amount of plaque bilateral bulbs/ left ICA proximally IMPRESSION: Atheromatous plaquing without significant flow-limiting stenosis. Criteria for Assigning % of Stenosis / Diameter reduction (Estimation based on the indirect measurements of the internal carotid artery velocities (ICA PSV). 1. Normal (no stenosis)=ICA PSV < 125 cm/s: ratio < 2.0: ICA EDV<40 cm/s. 2. Less than 50% stenosis=ICA PSV < 125 cm/s: ratio < 2.0: ICA EDV<40 cm/s. 3. 50 to 69% stenosis=ICA PSV of 125 to 230 cm/s: ration 2.0 ? 4.0: ICA EDV 40-100 cm/s. 4. Greater than 70% stenosis to near occlusion= ICA PSV > 230 cm/s: ratio > 4.0: ICA EDV > 100 cm/s. 5. Near occlusion= ICA PSV velocities may be low or undetectable: variable ratio and ICA EDV. 6. Total occlusion=unable to detect flow.
--- NOTE | 2021-03-26 18:43 | ECHOF ---
Referral Reason:BRUIT; SOB MEASUREMENTS -------- HEIGHT: 182.9 cm WEIGHT: 108.9 kg BP: RVIDd: 3.3 cm (< 3.3) IVSd: 1.3 cm (0.6 - 1.1) LVIDd: 4.7 cm (3.9 - 5.3) LVPWd: 1.2 cm (0.6 - 1.1) IVSs: 1.5 cm LVIDs: 3.7 cm LVPWs: 1.8 cm LAESV Index (A-L): 22.86 ml/m Ao Diam: 3.0 cm (2.0 - 3.7) AV Cusp: 1.9 cm (1.5 - 2.6) MV EXCURSION: 18.742 mm (> 18.000) MV EF SLOPE: 55 mm/s (70 - 150) EPSS: 0.4 cm MV E Sina: 0.56 m/s MV DecT: 240 ms MV A Sina: 0.95 m/s MV E/A Ratio: 0.59 RAP: 5.00 mmHg RVSP: 14.88 mmHg FINDINGS -------- Sinus rhythm. This was a techncally difficult study with suboptimal views, , Lumason utilized for enhancement of im ages. Overall left ventricular systolic function is mild-moderately impaired with, an EF between 40 - 45 %. Basal inferoseptal LV wall motion is hypokinetic. The right ventricle is normal in size. Normal LA size by volume 22+/-6 ml/m2. The right atrial size is normal. 5.0mg OF Lumason UTLIZED: 2 OR MORE WALL SEGMENTS NOT VISUALIZED. Mild mitral regurgitation is present. Mild tricuspid regurgitation present. Right ventricular systolic pressure is normal at < 35 mmHg. The pulmonic valve was not well visualized. CONCLUSIONS -------- 1. This was a techncally difficult study with suboptimal views, , Lumason utilized for enhancement of images. 2. Overall left ventricular systolic function is mild-moderately impaired with, an EF between 40 - 45 %. 3. Basal inferoseptal LV wall motion is hypokinetic. 4. The right ventricle is normal in size. 5. Normal LA size by volume 22+/-6 ml/m2. 6. The right atrial size is normal. 7. 5.0mg OF Lumason UTLIZED: 2 OR MORE WALL SEGMENTS NOT VISUALIZED. 8. Mild mitral regurgitation is present. 9. Mild tricuspid regurgitation present. 10. The pulmonic valve was not well visualized. ELECTRIC FRYING PAN REPAIRER: Yessenia Ley RDCS
== END | disposition home or self-care (01) ==
LOC: RADECHMAIN 13:44
PROVIDERS: ATTEND Internal Medicine
DX: I65.23 Occlusion and stenosis of bilateral carotid arteries (principal); I08.1 Rheumatic disorders of both mitral and tricuspid valves
CPT/HCPCS: 93306; 93880; Q9950

== ENCOUNTER 2021-04-22 08:34 | Inpatient (IN) | payer BC ==
--- NOTE | 2021-04-22 09:31 | ED ---
Lower Extremity Injury HPI - General Chief Complaint: Extremity Injury, Lower Stated Complaint: Diabetic, R foot wound Time Seen by Provider: 04/22/21 08:38 Source: patient Mode of arrival: wheelchair Limitations: no limitations - History of Present Illness Initial Comments: 55-year-old male of type 1 diabetes presents to emergency Department with a chi ef complaint of the diabetic ulcer. Patient reports he does have history of diabetic ulcers on his right foot and has been seen wound care. States his ulcers are completely resolved. States he is also seeing an orthopedic surgeon who advised him to wear a postop shoe. Patient reports she developed an also recently and after seeing the orthopedic doctor, a new dressing was applied. Patient states he removed the dressing and noticed swelling in the foot as well. states that the wound looked worse yesterday and she was able to clean it with some peroxide and Betadine. Patient states he has peripheral neuropathy so it is not painful. states she has noticed there is yellow discharge from the wound. However, it is not warm to touch. It did swell worse yesterday but not today. - Related Data Home Medications Medication Instructions Recorded Confirmed Insulin Glargine [Lantus] 85 unit SQ HS 02/19/15 04/22/21 Niacin [Niacin ER] 1,000 mg PO DAILY 02/19/15 04/22/21 Aspirin 325 mg PO DAILY 03/08/18 04/22/21 Insulin Lispro [humaLOG Kwikpen] 34 unit SQ AC-TID 03/08/18 04/22/21 Nitroglycerin Sl Tabs [Nitrostat] 0.4 mg SUBLINGUAL Q5M PRN 03/08/18 04/22/21 Rosuvastatin [Crestor] 20 mg PO HS 03/08/18 04/22/21 amLODIPine [Norvasc] 2.5 mg PO DAILY 03/08/18 04/22/21 Enalapril [Vasotec] 10 mg PO DAILY 04/22/21 04/22/21 Evolocumab [Repatha Sureclick] 140 mg SQ Q14D 04/22/21 04/22/21 Pregabalin [Lyrica] 100 mg PO TID 04/22/21 04/22/21 Ranolazine [Ranolazine ER] 1,000 mg PO BID 04/22/21 04/22/21 Allergies Allergy/AdvReac Type Severity Reaction Status Date / Time No Known Allergies Allergy Verified 04/22/21 10:18 Review of Systems ROS Statement: Those systems with pertinent positive or pertinent negative responses have been documented in the HPI. ROS Other: All systems not noted in ROS Statement are negative. Past Medical History Past Medical History: Diabetes Mellitus, Myocardial Infarction ([place]), Renal Disease Last Myocardial Infarction Date:: 2010 History of Any Multi-Drug Resistant Organisms: None Reported Past Surgical History: Coronary Bypass/CABG, Heart Catheterization With Stent, Tonsillectomy Additional Past Surgical History / Comment(s): EGD, EXCISION OF ABSCESS, bone biopsy 04/2021 Past Anesthesia/Blood Transfusion Reactions: No Reported Reaction Date of Last Stent Placement:: 2010 Past Psychological History: No Psychological Hx Reported Smoking Status: Current every day smoker Past Alcohol Use History: Occasional Past Drug Use History: None Reported - Past Family History Father Family Medical History: Diabetes Mellitus Mother Family Medical History: Cancer, CVA/TIA General Exam Limitations: no limitations General appearance: alert, in no apparent distress, obese Head exam: Present: atraumatic, normocephalic, normal inspection Eye exam: Present: normal appearance, PERRL, EOMI Pupils: Present: normal accommodation ENT exam: Present: normal exam, normal oropharynx, mucous membranes moist Neck exam: Present: normal inspection, full ROM. Absent: tenderness Respiratory exam: Present: normal lung sounds bilaterally. Absent: respiratory distress, wheezes, rales, rhonchi, stridor, chest wall tenderness, accessory muscle use Cardiovascular Exam: Present: regular rate, normal rhythm, normal heart sounds. Absent: systolic murmur Extremities exam: Present: full ROM, normal capillary refill, other (Palpable DP and PT bilaterally). Absent: normal inspection (Wound between the fourth and fifth toes. Yellow discharge noted. No significant follow small. It does not feel warm to touch), tenderness, pedal edema, joint swelling, calf tenderness Back exam: Present: normal inspection, full ROM. Absent: tenderness, CVA tenderness (R), CVA tenderness (L) Neurological exam: Present: alert, oriented X3 Psychiatric exam: Present: normal affect, normal mood Skin exam: Present: warm, dry, intact, normal color Course Vital Signs 04/22/21 08:35 Temperature 97.8 F Pulse Rate 104 H Respiratory 18 Rate Blood Pressure 147/83 O2 Sat by Pulse 100 Oximetry Medical Decision Making - Medical Decision Making 55-year-old male with history of type 1 diabetes presents emergency Department with chief complaint of diabetic ulcer. Physical examination, he does appear to have an an open wound between the fourth and fifth toes. It does not appear to significantly infected. No foul smell, however the states there was a foul smell yesterday. CBC remarkable. Lactic acid is 2.2. X-ray reveals possible early osteomyelitis. Patient will be started on vancomycin. I discussed the case with Dr. Feldamn. I also consulted with Dr. Rivera who will admit patient Infectious disease on consult. - Lab Data Result diagrams: 04/22/21 09:30 04/22/21 09:30 Lab Results 04/22/21 04/22/21 04/22/21 Range/Units 09:30 09:30 09:30 WBC 7.4 (3.8-10.6) k/uL RBC 4.25 L (4.30-5.90) m/uL Hgb 14.3 (13.0-17.5) gm/dL Hct 39.4 (39.0-53.0) % MCV 92.6 (80.0-100.0) fL MCH 33.7 (25.0-35.0) pg MCHC 36.4 (31.0-37.0) g/dL RDW 12.6 (11.5-15.5) % Plt Count 270 (150-450) k/uL MPV 6.6 Neutrophils % 62 % Lymphocytes % 26 % Monocytes % 7 % Eosinophils % 2 % Basophils % 0 % Neutrophils # 4.6 (1.3-7.7) k/uL Lymphocytes # 1.9 (1.0-4.8) k/uL Monocytes # 0.5 (0-1.0) k/uL Eosinophils # 0.2 (0-0.7) k/uL Basophils # 0.0 (0-0.2) k/uL Sodium 136 L (137-145) mmol/L Potassium 4.6 (3.5-5.1) mmol/L Chloride 102 (98-107) mmol/L Carbon Dioxide 24 (22-30) mmol/L Anion Gap 10 mmol/L BUN 19 (9-20) mg/dL Creatinine 0.70 (0.66-1.25) mg/dL Est GFR (CKD-EPI)AfAm >90 (>60 ml/min/1.73 sqM) Est GFR (CKD-EPI)NonAf >90 (>60 ml/min/1.73 sqM) Glucose 248 H (74-99) mg/dL Plasma Lactic Acid [place] 2.2 H* (0.7-2.0) mmol/L Calcium 9.7 (8.4-10.2) mg/dL Total Bilirubin 0.4 (0.2-1.3) mg/dL AST 26 (17-59) U/L ALT 17 (4-49) U/L Alkaline Phosphatase 93 (38-126) U/L Total Protein 6.5 (6.3-8.2) g/dL Albumin 4.1 (3.5-5.0) g/dL Disposition Clinical Impression: Diabetic foot ulcer Disposition: ADMITTED IP TO THIS [facility] Condition: Stable Is patient prescribed a controlled substance at d/c from ED?: No Referrals: Federico Rivera MD [Primary Care Provider] - 1-2 days Time of Disposition: 11:21
[2021-04-22 09:52] LABS: Basophils % (A) 0 %; Eosinophils # (A) 0.2 k/uL (0-0.7); Eosinophils % (A) 2 %; HCT 39.4 % (39.0-53.0); HGB 14.3 gm/dL (13.0-17.5); Lymphocytes # (A) 1.9 k/uL (1.0-4.8); Lymphocytes % (A) 26 %; MCH 33.7 pg (25.0-35.0); MCHC 36.4 g/dL (31.0-37.0); MCV 92.6 fL (80.0-100.0); Mean Platelet Volume 6.6; Monocytes # (A) 0.5 k/uL (0-1.0); Monocytes % (A) 7 %; Neutrophils # (A) 4.6 k/uL (1.3-7.7); Neutrophils % (A) 62 %; Platelet Count 270 k/uL (150-450); RBC 4.25 m/uL (4.30-5.90); RDW 12.6 % (11.5-15.5); WBC 7.4 k/uL (3.8-10.6)
[2021-04-22 10:05] LABS: ALT 17 U/L (4-49); AST 26 U/L (17-59); African American GFR (CKD) >90 (>60 ml/min/1.73 sqM); Albumin 4.1 g/dL (3.5-5.0); Alkaline Phosphatase 93 U/L (38-126); Anion Gap 10 mmol/L; Blood Urea Nitrogen 19 mg/dL (9-20); Calcium 9.7 mg/dL (8.4-10.2); Carbon Dioxide 24 mmol/L (22-30); Chloride 102 mmol/L (98-107); Glucose 248 mg/dL (74-99); Non-African American GFR(CKD) >90 (>60 ml/min/1.73 sqM); Potassium 4.6 mmol/L (3.5-5.1); Sodium 136 mmol/L (137-145); Total Bilirubin 0.4 mg/dL (0.2-1.3); Total Protein 6.5 g/dL (6.3-8.2)
--- NOTE | 2021-04-22 10:15 | XR ---
EXAMINATION TYPE: XR foot complete RT DATE OF EXAM: 04/22/2021 CLINICAL HISTORY: Fifth toe diabetic ulcer TECHNIQUE: Frontal, lateral, and oblique images of the right foot are obtained. COMPARISON: None FINDINGS: There is destructive change and fragmentation with soft tissue heterotopic ossification in volving the first metatarsal. No discrete lucency at the base of the proximal phalanx which was seen on prior exam. There is diffuse soft tissue edema. The tarsals, metatarsals and phalanges are otherwi se in alignment. Probable hammertoe deformities of the second through fourth distal phalanges. Within the plantar soft tissues there is a 1.7 x 1.3 cm soft tissue calcification adjacent to the metatarsa l heads likely of the first digit. This is new since prior exam. There is mild lucency at the distal tuft of the distal phalanx of the fifth digit. This may represent very early osteomyelitis. IMPRESSION: 1. Destructive changes causing a pathologic fracture involving the first metatarsal with soft tissue ossification. Increased soft tissue ossification in the plantar soft tissues measuring up to 1.7 x 1. 3 cm adjacent to the metatarsal head of the first digit. Findings suggestive of destructive changes o f osteomyelitis. 2. There is mild lucency at the distal tuft of the distal phalanx of the fifth digit. This may repres ent very early osteomyelitis. This is not definitive.
[2021-04-22] MEDS ORDERED: VANCOMYCIN IV PER PHARMACY 1 EACH MISC MISCELLANE PRN (10:56)
[2021-04-22] MEDS ORDERED: VANCOMYCIN 1,750 MG in SODIUM CHLORIDE 0.9% 500 ML 500 ML IVPB STA (11:02)
[2021-04-22] MEDS ORDERED: NALOXONE 0.4 MG/ML 1 ML VIAL IV PRN (11:17)
[2021-04-22] MEDS: SODIUM CHLORIDE 0.9% 1,000 ML IV SCH (11:26)
[2021-04-22 17:05] LABS: Glucose,Whole Blood 253 mg/dL (75-99)
[2021-04-22] MEDS ORDERED: NITROGLYCERIN SL TABS 0.4 MG TAB SUBLINGUAL PRN (20:08)
[2021-04-22] MEDS ORDERED: PATIENT'S OWN (Evolocumab [Repatha Sureclick] 140 MG/ML Pen.Injctr) SQ SCH (20:15)
[2021-04-22 20:20] LABS: Glucose,Whole Blood 192 mg/dL (75-99)
[2021-04-22] MEDS: VANCOMYCIN 1,750 MG in SODIUM CHLORIDE 0.9% 500 ML 500 ML IVPB SCH (21:25)
[2021-04-22] MEDS: amLODIPine 2.5 MG TAB PO SCH (21:26)
[2021-04-22] MEDS: lisinopriL 20 MG TAB PO SCH (21:26)
[2021-04-22] MEDS: ATORVASTATIN 40 MG TAB PO SCH (21:26)
[2021-04-22] MEDS: NIACIN TR 500 MG CAPLET PO SCH (21:26)
[2021-04-22] MEDS: INSULIN DETEMIR (LEVEMIR) 100 UNIT/ML SYR SQ SCH (21:27)
[2021-04-22] MEDS: PREGABALIN 100 MG CAP PO SCH (21:27)
[2021-04-22] MEDS: RANOLAZINE 500 MG TAB.ER.12H PO SCH (21:27)
--- NOTE | 2021-04-22 22:20 | P.HPIM ---
History of Present Illness H&P Date: 04/22/21 Chief Complaint: foot ulcer. This is a history and physical on a 55-year-old white male with known history of diabetes, CAD with element of diabetic neuropathy/vasculopathy. The patient has developed a foot ulcer of the medial aspect of the fifth toe which now has significant erythema and draining. He will be started on empiric antibiotics with appropriate wound care. No fever. He does not even feel the ulcer per se. Underlying history of relatively labile diabetes. The patient is a non-smoker. No significant nausea or vomiting. No previous history of cellulitis. Element of Charcot foot has diagnosed recently by podiatry Review of Systems Constitutional: Denies chills, Denies fever Eyes: denies blurred vision, denies pain Cardiovascular: Denies chest pain, Denies shortness of breath Respiratory: Denies cough Gastrointestinal: Denies abdominal pain, Denies diarrhea, Denies nausea, Denies vomiting Integumentary: Reports foot/leg ulcers Psychiatric: Denies anxiety, Denies depression Endocrine: Denies fatigue, Denies weight change Past Medical History Past Medical History: Coronary Artery Disease (CAD), Diabetes Mellitus, Hyperlipidemia, Myocardial Infarction (ID), Renal Disease Additional Past Medical History / Comment(s): Burling disc in back, sore on the bottom of right foot went to the wound center Last Myocardial Infarction Date:: 2010 History of Any Multi-Drug Resistant Organisms: None Reported Past Surgical History: Coronary Bypass/CABG, Heart Catheterization With Stent, Tonsillectomy Additional Past Surgical History / Comment(s): EGD, EXCISION OF ABSCESS, bone biopsy 04/2021 Past Anesthesia/Blood Transfusion Reactions: No Reported Reaction Date of Last Stent Placement:: 2010 Past Psychological History: No Psychological Hx Reported Smoking Status: Current every day smoker Past Alcohol Use History: Occasional Additional Past Alcohol Use History / Comment(s): Smoke 1/2 packed a day, has smoke for 40yrs Past Drug Use History: None Reported - Past Family History Father Family Medical History: Diabetes Mellitus Mother Family Medical History: Cancer, CVA/TIA Medications and Allergies Home Medications Medication Instructions Recorded Confirmed Type Insulin Glargine [Lantus] 85 unit SQ HS 02/19/15 04/22/21 History Niacin [Niacin ER] 1,000 mg PO DAILY 02/19/15 04/22/21 History Aspirin 325 mg PO DAILY 03/08/18 04/22/21 History Insulin Lispro [humaLOG Kwikpen] 34 unit SQ AC-TID 03/08/18 04/22/21 History Nitroglycerin Sl Tabs [Nitrostat] 0.4 mg SUBLINGUAL Q5M PRN 03/08/18 04/22/21 History Rosuvastatin [Crestor] 20 mg PO HS 03/08/18 04/22/21 History amLODIPine [Norvasc] 2.5 mg PO DAILY 03/08/18 04/22/21 History Enalapril [Vasotec] 10 mg PO DAILY 04/22/21 04/22/21 History Evolocumab [Repatha Sureclick] 140 mg SQ Q14D 04/22/21 04/22/21 History Pregabalin [Lyrica] 100 mg PO TID 04/22/21 04/22/21 History Ranolazine [Ranolazine ER] 1,000 mg PO BID 04/22/21 04/22/21 History Allergies Allergy/AdvReac Type Severity Reaction Status Date / Time No Known Allergies Allergy Verified 04/22/21 10:18 Physical Exam Vitals: Vital Signs Temp Pulse Resp BP Pulse Ox 04/22/21 11:32 98.0 F 85 18 120/77 99 04/22/21 08:35 97.8 F 104 H 18 147/83 100 Intake and Output 04/22/21 04/22/21 04/22/21 06:59 14:59 22:59 Intake Total 100 Balance 100 Intake: Oral 100 Other: # Voids 1 Weight 108.862 kg 108.862 kg - EENT Eyes: EOMI - Respiratory Respiratory: bilateral: CTA - Cardiovascular Rhythm: regular Abnormal Heart Sounds: no S3 Gallop - Gastrointestinal General gastrointestinal: soft, no tenderness - Integumentary Integumentary: cellulitis, ulcer - Neurologic Neurologic: CNII-XII intact - Psychiatric Psychiatric: A&O x's 3 Results CBC & Chem 7: 04/22/21 09:30 04/22/21 09:30 Labs: Abnormal Lab Results - Last 24 Hours (Table) 04/22/21 04/22/21 04/22/21 Range/Units 09:30 09:30 09:30 RBC 4.25 L (4.30-5.90) m/uL Sodium 136 L (137-145) mmol/L Glucose 248 H (74-99) mg/dL POC Glucose (mg/dL) (75-99) mg/dL Plasma Lactic Acid [place] 2.2 H* (0.7-2.0) mmol/L C-Reactive Protein (<1.0) mg/dL 04/22/21 04/22/21 04/22/21 Range/Units 09:30 13:15 16:23 RBC (4.30-5.90) m/uL Sodium (137-145) mmol/L Glucose (74-99) mg/dL POC Glucose (mg/dL) (75-99) mg/dL Plasma Lactic Acid [place] 3.9 H* 2.4 H* (0.7-2.0) mmol/L C-Reactive Protein 2.6 H (<1.0) mg/dL 04/22/21 04/22/21 04/22/21 Range/Units 17:03 18:58 20:19 RBC (4.30-5.90) m/uL Sodium (137-145) mmol/L Glucose (74-99) mg/dL POC Glucose (mg/dL) 253 H 192 H (75-99) mg/dL Plasma Lactic Acid [place] 2.1 H* (0.7-2.0) mmol/L C-Reactive Protein (<1.0) mg/dL Thrombosis Risk Factor Assmnt - Choose All That Apply Each Factor Represents 1 point: Age 41-60 years Thrombosis Risk Factor Assessment Total Risk Factor Score: 1 Thrombosis Risk Factor Assessment Level: Low Risk Assessment and Plan (1) Diabetic foot ulcer Current Visit: Yes Status: Acute Code(s): E11.621 - TYPE 2 DIABETES MELLITUS WITH FOOT ULCER; L97.509 - NON-PRESSURE CHRONIC ULCER OTH PRT UNSP FOOT W UNSP SEVERITY SNOMED Code(s): 452508810 (2) CAD (coronary artery disease) Current Visit: No Status: Acute Code(s): I25.10 - ATHSCL HEART DISEASE OF [place] CORONARY ARTERY W/O ANG PCTRS SNOMED Code(s): 55565450 (3) Diabetes Current Visit: No Status: Acute Code(s): E11.9 - TYPE 2 DIABETES MELLITUS WITHOUT COMPLICATIONS SNOMED Code(s): 09544860 Plan: Reconcile home medications. Start empiric antibiotic treatment. Wound control with infectious disease consult. Diabetic education to reiterate proper control. Given his previous vascular issues, high risk. Check CBC and CMP in a.m. Placed on sliding scale. Prognosis is guarded Time with Patient: Greater than 30
[2021-04-23] MEDS: AMPICILLIN-SULBACTAM 3 GM in SODIUM CHLORIDE 0.9% 100 ML IVPB SCH ×4 (00:52→18:05)
[2021-04-23] MEDS: SODIUM CHLORIDE 0.9% 1,000 ML IV SCH ×2 (03:53→12:40)
[2021-04-23] MEDS: VANCOMYCIN 1,750 MG in SODIUM CHLORIDE 0.9% 500 ML 500 ML IVPB SCH ×3 (03:58→20:39)
--- NOTE | 2021-04-23 06:28 | CONS ---
CONSULTATION DATE OF SERVICE: 04/22/2021 REASON FOR CONSULTATION: Right diabetic foot infection. HISTORY OF PRESENT ILLNESS: The patient is a 55-year-old male with past medical history significant for type 1 diabetes mellitus in this patient who apparently had workup in the outpatient setting for an osteomyelitis of the right big toe/metatarsal head and recently did have biopsy done by in the outpatient setting. The patient presented to [facility] ER for evaluation of the right foot between 4th and fifth toes, mostly medial aspect of the right fifth toe that he noticed yesterday and has got worse very quickly with associated swelling and redness. The patient did have slight drainage from the area, but not foul smelling. The patient denies having any fever or any chills. Denies any pain because of underlying neuropathy. With these symptoms, the patient was evaluated by the ER physician. On arrival to the ER, the patient was afebrile. The patient did have a normal white count. Creatinine was normal. Lactic acid was elevated, CRP 2.6. The patient did have x-rays of the foot which raises the possibility of the pathological fracture of the first metatarsal with opacification. However, the patient clinically did not have any abnormality of the right big toe at this point and there was a mild lucency at the distal tuft of the distal phalanx of the first digit which may be early osteomyelitis. Patient was started on vancomycin and has been admitted to the hospital. Infectious Disease was consulted for further management of antibiotic therapy. REVIEW OF SYSTEMS: Positive points have been mentioned in HPI. Rest of the systems are negative. MEDICAL HISTORY: Diabetes mellitus, [place], renal insufficiency. PAST SURGICAL HISTORY: Coronary artery bypass grafting, heart catheterization with stent, tonsillectomy, excision of abscess, bone biopsy. SOCIAL HISTORY: Current everyday smoker. Occasionally drinks. No drug use. FAMILY HISTORY: Father with history of diabetes. Mother history of cancer, CVA, TIA. ALLERGIES: No known drug allergies. MEDICATIONS: Include the patient is currently on Norvasc, aspirin, Lipitor, NovoLog, Levemir, Zestril, Narcan, Lyrica, Celexa and vancomycin, Pharmacy to dose. PHYSICAL EXAMINATION: VITAL SIGNS: Blood pressure 120/77 with a pulse of 85, temperature 98, he is 99% on room air. GENERAL DESCRIPTION: Patient is a middle-aged male up in the bed in no distress. No tachypnea or accessory muscles of respiration use. HEENT: Examination shows no pallor or scleral icterus. Oral mucous membrane is dry. NECK: Trachea central, no thyromegaly. LUNGS: Unlabored breathing, clear to auscultation anteriorly. No wheeze or crackle. HEART: S1-S2, regular rate and rhythm. ABDOMEN: Soft, no tenderness. No guarding or rigidity. EXTREMITIES: No edema of the feet. Examination of the right big toe, no significant swelling, redness or any drainage. The patient did have a swelling and redness of the right fifth toe with wound on the medial aspect with some drainage. No foul smelling. NEUROLOGICAL: Patient is awake, alert, oriented times three. Mood and affect normal. LABS: Lactic acid 2.1, creatinine 0.70. CRP was 2.6. Hemoglobin is 14.3, white count 7.4. X-ray report as mentioned above. DIAGNOSTIC IMPRESSION: Patient admitted to the hospital with right diabetic foot infection predominantly involving right fifth toe where the patient did have ulceration and drainage. No abnormality was seen on the right big toe where the patient apparently did have a biopsy done in the outpatient setting and workup for possible osteomyelitis. PLAN: 1. We will try to obtain records from his recent biopsy done by Ortho in the outpatient setting. 2. We will obtain culture of the wound on the medial aspect of the right 5th toe, both aerobic and anaerobic. 3. Continue vancomycin, Pharmacy to dose target of 15 while watching his kidney function closely. Add Unasyn 3 grams q.6 hours. 4. Nystatin powder between the toes. 5. We will check a bone scan to rule out any evidence of osteomyelitis of the right fifth toe. 6. Check a sedimentation rate and CRP. 7. We will follow on his clinical condition and culture to further adjust medication if needed. Thank you for this consultation. Will follow this patient along with you. MMODL / IJN: [id number] /
[2021-04-23 07:17] LABS: Glucose,Whole Blood 163 mg/dL (75-99)
[2021-04-23] MEDS: INSULIN ASPART (NovoLOG) 100 UNIT/ML VIAL SQ SCH ×8 (08:44→20:39)
[2021-04-23] MEDS ORDERED: ASPIRIN 325 MG TAB PO SCH (09:00)
[2021-04-23] MEDS: amLODIPine 2.5 MG TAB PO SCH (09:04)
[2021-04-23] MEDS: NIACIN TR 500 MG CAPLET PO SCH (09:04)
[2021-04-23] MEDS: lisinopriL 20 MG TAB PO SCH (09:04)
[2021-04-23] MEDS: PREGABALIN 100 MG CAP PO SCH ×3 (09:04→20:40)
[2021-04-23] MEDS: RANOLAZINE 500 MG TAB.ER.12H PO SCH ×2 (09:04→20:41)
[2021-04-23 09:24] LABS: ALT 17 U/L (4-49); AST 23 U/L (17-59); African American GFR (CKD) >90 (>60 ml/min/1.73 sqM); Albumin 3.7 g/dL (3.5-5.0); Albumin/Globulin Ratio 1.5; Alkaline Phosphatase 83 U/L (38-126); Anion Gap 8 mmol/L; Blood Urea Nitrogen 18 mg/dL (9-20); Calcium 9.4 mg/dL (8.4-10.2); Carbon Dioxide 24 mmol/L (22-30); Chloride 106 mmol/L (98-107); Globulin 2.4 g/dL; Glucose 161 mg/dL (74-99); Non-African American GFR(CKD) >90 (>60 ml/min/1.73 sqM); Potassium 4.8 mmol/L (3.5-5.1); Sodium 138 mmol/L (137-145); Total Bilirubin 0.3 mg/dL (0.2-1.3); Total Protein 6.1 g/dL (6.3-8.2)
[2021-04-23 09:55] LABS: HCT 39.4 % (39.0-53.0); MCH 33.3 pg (25.0-35.0); MCHC 35.7 g/dL (31.0-37.0); MCV 93.4 fL (80.0-100.0); Mean Platelet Volume 7.3; Platelet Count 270 k/uL (150-450); RBC 4.21 m/uL (4.30-5.90); RDW 12.6 % (11.5-15.5)
[2021-04-23 09:56] LABS: C Reactive Protein 2.1 mg/dL (<1.0)
[2021-04-23 11:37] LABS: Glucose,Whole Blood 186 mg/dL (75-99)
[2021-04-23 11:59] VITALS: BMI 34.4
[2021-04-23] MEDS ORDERED: ASPIRIN 81 MG PO SCH (12:00)
[2021-04-23 13:06] LABS: Erythrocyte Sedimentation Rate 14 mm/hr (0-15)
--- NOTE | 2021-04-23 13:57 | NM ---
EXAMINATION TYPE: NM bone 3 phase DATE OF EXAM: 04/23/2021 COMPARISON: Prior bone scan 03/12/2021 HISTORY: Osteomyelitis Triple phase bone scintigraphy was performed following the injection of 21.8 mCi Tc 99m MDP. Immedia te images and 5.5 hours post injection images acquired. FINDINGS: There is similar appearance to the exam. First digit shows increased blood flow, blood pool and delay ed uptake at the level of the metatarsal as on prior exam. Fifth digit also shows increased blood gerda w and blood pool activity, some delayed uptake is also present this digit of the right foot. Suspect degenerative changes are also present within the feet as on prior. IMPRESSION: Consistent with patient's history of osteomyelitis. First digit shows similar activity to prior exam consistent without cement limits. Interval activity involving the fifth digit of the right foot not s een on prior exam is consistent with osteomyelitis.
[2021-04-23 16:44] LABS: Glucose,Whole Blood 184 mg/dL (75-99)
--- NOTE | 2021-04-23 16:45 | P.PN ---
Subjective Progress Note Date: 04/23/21 Principal diagnosis: Toe cellulitis The patient is a 5-year-old white male with known history of CAD with diabetic foot ulcer who comes in For right fifth digit medial aspect the diabetic foot ulcer with cellulitis. Bone scan is pending today. Minimal pain is stated. No fever. Blood sugar is nominal. Objective - Vital Signs Vital signs: Vital Signs Temp 98.5 F 04/23/21 14:00 Pulse 79 04/23/21 14:00 Resp 16 04/23/21 14:00 BP 132/77 04/23/21 14:00 Pulse Ox 97 04/23/21 14:00 Intake & Output 04/22/21 04/23/21 04/23/21 18:59 06:59 18:59 Intake Total 100 200 Balance 100 200 Weight 108.862 kg 108.862 kg Intake: Oral 100 200 Other: # Voids 1 1 - Constitutional General appearance: Present: obese - EENT Eyes: Present: abnormal pupil - Respiratory Respiratory: bilateral: CTA - Cardiovascular Rhythm: regular Heart sounds: normal: S1, S2 Abnormal Heart Sounds: Absent: S3 Gallop, S4 Gallop - Gastrointestinal General gastrointestinal: Present: soft. Absent: splenomegaly, tenderness - Integumentary Integumentary Comment(s): Medial aspect with of the fifth right digit with 2.5 x 1 cm ulceration. - Neurologic Neurologic: Absent: focal deficits - Musculoskeletal Musculoskeletal: Present: gait normal - Labs CBC & Chem 7: 04/23/21 06:53 04/23/21 06:53 Labs: Abnormal Lab Results - Last 24 Hours (Table) 04/22/21 04/22/21 04/22/21 Range/Units 16:23 17:03 18:58 RBC (4.30-5.90) m/uL Glucose (74-99) mg/dL POC Glucose (mg/dL) 253 H (75-99) mg/dL Plasma Lactic Acid [place] 2.4 H* 2.1 H* (0.7-2.0) mmol/L C-Reactive Protein (<1.0) mg/dL Total Protein (6.3-8.2) g/dL 04/22/21 04/23/21 04/23/21 Range/Units 20:19 06:53 06:53 RBC 4.21 L (4.30-5.90) m/uL Glucose 161 H (74-99) mg/dL POC Glucose (mg/dL) 192 H (75-99) mg/dL Plasma Lactic Acid [place] (0.7-2.0) mmol/L C-Reactive Protein 2.1 H (<1.0) mg/dL Total Protein 6.1 L (6.3-8.2) g/dL 04/23/21 04/23/21 Range/Units 07:00 11:31 RBC (4.30-5.90) m/uL Glucose (74-99) mg/dL POC Glucose (mg/dL) 163 H 186 H (75-99) mg/dL Plasma Lactic Acid [place] (0.7-2.0) mmol/L C-Reactive Protein (<1.0) mg/dL Total Protein (6.3-8.2) g/dL Microbiology - Last 24 Hours (Table) 04/22/21 11:15 Blood Culture - Preliminary Blood No Growth after 24 hours 04/22/21 11:30 Blood Culture - Preliminary Blood No Growth after 24 hours 04/23/21 06:00 Wound Culture - Preliminary Toe - Right Fifth 04/23/21 06:00 Anaerobic Culture - Preliminary Toe - Right Fifth Assessment and Plan (1) Diabetic foot ulcer Current Visit: Yes Status: Acute Code(s): E11.621 - TYPE 2 DIABETES MELLITUS WITH FOOT ULCER; L97.509 - NON-PRESSURE CHRONIC ULCER OTH PRT UNSP FOOT W UNSP SEVERITY SNOMED Code(s): 040513767 (2) CAD (coronary artery disease) Current Visit: No Status: Acute Code(s): I25.10 - ATHSCL HEART DISEASE OF [place] CORONARY ARTERY W/O ANG PCTRS SNOMED Code(s): 18269129 (3) History of myocardial infarction Current Visit: Yes Status: Acute Code(s): I25.2 - OLD MYOCARDIAL INFARCTION SNOMED Code(s): 146559732 (4) Hyperlipidemia Current Visit: Yes Status: Acute Code(s): E78.5 - HYPERLIPIDEMIA, UNSPECIFIED SNOMED Code(s): 32847598 Plan: Reconcile home medications. Start empiric antibiotic treatment. await bone scan results for possible osteomyelitis. Reiterated good control. Check CBC and CMP in a.m.
[2021-04-23 20:26] LABS: Glucose,Whole Blood 214 mg/dL (75-99)
[2021-04-23] MEDS: INSULIN DETEMIR (LEVEMIR) 100 UNIT/ML SYR SQ SCH (20:40)
[2021-04-23] MEDS: ATORVASTATIN 40 MG TAB PO SCH (20:40)
[2021-04-24] MEDS: AMPICILLIN-SULBACTAM 3 GM in SODIUM CHLORIDE 0.9% 100 ML IVPB SCH ×4 (00:11→19:16)
[2021-04-24] MEDS: VANCOMYCIN 1,750 MG in SODIUM CHLORIDE 0.9% 500 ML 500 ML IVPB SCH ×3 (03:13→23:36)
[2021-04-24] MEDS: SODIUM CHLORIDE 0.9% 1,000 ML IV SCH ×2 (03:17→21:42)
[2021-04-24 06:42] LABS: Glucose,Whole Blood 111 mg/dL (75-99)
--- NOTE | 2021-04-24 07:07 | PN ---
PROGRESS NOTE DATE OF SERVICE: 04/23/2021 REASON FOR FOLLOWUP: Left diabetic foot infection, concern for underlying osteomyelitis. INTERVAL HISTORY: The patient is currently afebrile. Patient is breathing comfortably. The patient denies having any chest pain, shortness of breath or cough. No abdominal pain or new symptoms of the right foot. PHYSICAL EXAMINATION: Blood pressure 143/74 with a pulse of 92, temperature 97.7. He is 98% on room air. General description is a middle-aged male lying in no distress. Respiratory system: Unlabored breathing, clear to auscultation anteriorly. Heart S1, S2. Regular rate and rhythm. Abdomen is soft, no tenderness. Right fifth toe swelling and redness has slightly decreased. LABS: Hemoglobin is 14.3, white count 6.0, BUN of 18, creatinine 0.67. The bone scan came back suspicious for osteomyelitis of the right 1st metatarsal and the left fifth toe. DIAGNOSTIC IMPRESSION AND PLAN: Patient admitted to the hospital with diabetic foot infection, especially wound with right fifth toe where the patient did have ulceration and cellulitis with abnormal bone scan. Cultures currently pending. Bone scan also suspicious for osteomyelitis at the right 1st metatarsal head, however, currently the patient does not have any open wound at that site. The patient did have a biopsy and culture done by at [facility] and those cultures were negative. This has been discussed in detail with the patient. Questions and concerns have been answered. The patient to continue with vancomycin and Unasyn with discharge antibiotic depending upon the culture report. Continue supportive care. MMODL / IJN: [id number] /
[2021-04-24] MEDS: INSULIN ASPART (NovoLOG) 100 UNIT/ML VIAL SQ SCH ×7 (07:20→21:01)
[2021-04-24] MEDS: ASPIRIN 81 MG PO SCH (09:24)
[2021-04-24] MEDS: amLODIPine 2.5 MG TAB PO SCH (09:24)
[2021-04-24] MEDS: RANOLAZINE 500 MG TAB.ER.12H PO SCH ×2 (09:24→21:43)
[2021-04-24] MEDS: lisinopriL 20 MG TAB PO SCH (09:24)
[2021-04-24] MEDS: PREGABALIN 100 MG CAP PO SCH ×3 (09:24→21:00)
[2021-04-24] MEDS: NIACIN TR 500 MG CAPLET PO SCH (09:24)
[2021-04-24] MEDS ORDERED: VANCOMYCIN TROUGH DUE 1 EACH MISC MISCELLANE ONE (11:00)
[2021-04-24 11:45] LABS: Glucose,Whole Blood 103 mg/dL (75-99)
--- NOTE | 2021-04-24 16:16 | PN ---
PROGRESS NOTE DATE OF SERVICE: 04/24/2021 REASON FOR FOLLOWUP: Right fifth toe diabetic foot infection with underlying osteomyelitis. INTERVAL HISTORY: The patient is currently afebrile. The patient is breathing comfortably. Overall pain to the right wound is currently improved. Denies having any chest pain, shortness of breath. No cough. No abdominal pain, no diarrhea. PHYSICAL EXAMINATION: Blood pressure 132/73, pulse of 77, temperature 98.1%. He is 97% on room air. General description is a middle-aged male lying in bed in no distress. Respiratory system: Unlabored breathing, clear to auscultation anteriorly. Heart S1, S2. Regular rate and rhythm. Abdomen soft, no tenderness. Right foot is currently dressed up. No obvious drainage on the dressing. LAB: White count of 19.6. Cultures currently pending. DIAGNOSTIC IMPRESSION AND PLAN: Patient with right diabetic foot infection ( ) in the right fifth toe with wound and concern for underlying osteomyelitis. Still waiting for the cultures to determine discharge antibiotic. Continue vancomycin and Unasyn. Vanco dose to be adjusted down to keep the trough around 15 and we will monitor his kidney function closely. MMODL / IJN: [id number] /
[2021-04-24 16:19] LABS: Glucose,Whole Blood 94 mg/dL (75-99)
[2021-04-24 20:40] LABS: Glucose,Whole Blood 215 mg/dL (75-99)
[2021-04-24] MEDS: ATORVASTATIN 40 MG TAB PO SCH (21:00)
[2021-04-24] MEDS: INSULIN DETEMIR (LEVEMIR) 100 UNIT/ML SYR SQ SCH (21:01)
[2021-04-25] MEDS: AMPICILLIN-SULBACTAM 3 GM in SODIUM CHLORIDE 0.9% 100 ML IVPB SCH ×5 (03:12→22:23)
[2021-04-25] MEDS: SODIUM CHLORIDE 0.9% 1,000 ML IV SCH ×3 (06:09→23:18)
[2021-04-25 06:39] LABS: Glucose,Whole Blood 185 mg/dL (75-99)
[2021-04-25 06:51] LABS: African American GFR (CKD) >90 (>60 ml/min/1.73 sqM); Non-African American GFR(CKD) >90 (>60 ml/min/1.73 sqM)
[2021-04-25] MEDS: INSULIN ASPART (NovoLOG) 100 UNIT/ML VIAL SQ SCH ×7 (07:50→21:21)
[2021-04-25] MEDS: PREGABALIN 100 MG CAP PO SCH ×3 (08:00→20:21)
[2021-04-25] MEDS: NIACIN TR 500 MG CAPLET PO SCH (08:00)
[2021-04-25] MEDS: amLODIPine 2.5 MG TAB PO SCH (08:00)
[2021-04-25] MEDS: lisinopriL 20 MG TAB PO SCH (08:00)
[2021-04-25] MEDS: ASPIRIN 81 MG PO SCH (08:00)
[2021-04-25] MEDS: RANOLAZINE 500 MG TAB.ER.12H PO SCH ×2 (08:01→20:28)
[2021-04-25] MEDS: VANCOMYCIN 1,750 MG in SODIUM CHLORIDE 0.9% 500 ML 500 ML IVPB SCH ×3 (08:33→23:17)
[2021-04-25 11:33] LABS: Glucose,Whole Blood 171 mg/dL (75-99)
--- NOTE | 2021-04-25 16:23 | P.PN ---
Subjective Progress Note Date: 04/24/21 Principal diagnosis: Right diabetic foot infection/ right fifth toe wound Possible osteomyelitis 55-year-old white male with known history of diabetes, CAD with element of diabetic neuropathy/vasculopathy. The patient has developed a foot ulcer of the medial aspect of the fifth toe which now has significant erythema and draining. He will be started on empiric antibiotics with appropriate wound care. No fever. He does not even feel the ulcer per se. Underlying history of relatively labile diabetes. The patient is a non-smoker. No significant nausea or vomiting. No previous history of cellulitis. Element of Charcot foot has diagnosed recently by podiatry ID on board and recommending to continue current IV antibiotics in form of vancomycin and Unasyn; await final culture reports to determine antibiotic and duration; bone scan done and pending to rule out osteomyelitis Objective - Vital Signs Vital signs: Vital Signs Temp 99.1 F 04/24/21 13:12 Pulse 77 04/24/21 13:12 Resp 17 04/24/21 13:12 BP 138/78 04/24/21 13:12 Pulse Ox 97 04/24/21 13:12 Intake & Output 04/23/21 04/24/21 04/24/21 18:59 06:59 18:59 Intake Total 740 Balance 740 Weight 108.862 kg Intake: Oral 740 Other: # Voids 3 3 - Exam - Constitutional General appearance: Present: average body habitus, cooperative, no acute distress - EENT Eyes: Present: anicteric sclerae, EOMI, PERRLA, normal appearance ENT: Present: hearing grossly normal, normal oropharynx Ears: bilateral: normal - Neck Neck: Present: normal ROM. Absent: lymphadenopathy, rigidity, thyromegaly Carotids: negative: bruit present Thyroid: bilateral: normal size, negative: enlarged, nodule - Respiratory Respiratory: bilateral: CTA, negative: rales, rhonchi, wheezing - Cardiovascular Rhythm: regular Heart sounds: normal: S1, S2 Abnormal Heart Sounds: Absent: systolic murmur, diastolic murmur - Gastrointestinal General gastrointestinal: Present: normal bowel sounds, soft. Absent: distended, organomegaly, tenderness - Genitourinary Genitourinary Comment(s): deferred - Integumentary Integumentary: Present: normal turgor. Absent: jaundiced, rash, ulcer - Neurologic Neurologic: Present: CNII-XII intact. Absent: focal deficits - Musculoskeletal Musculoskeletal: Present: gait normal, strength equal bilaterally - Psychiatric Psychiatric: Present: A&O x's 3, appropriate affect, intact judgment & insight - Labs CBC & Chem 7: 04/23/21 06:53 04/25/21 05:51 Labs: Abnormal Lab Results - Last 24 Hours (Table) 04/23/21 04/23/21 04/24/21 Range/Units 16:43 20:24 06:41 POC Glucose (mg/dL) 184 H 214 H 111 H (75-99) mg/dL 04/24/21 Range/Units 11:44 POC Glucose (mg/dL) 103 H (75-99) mg/dL Microbiology - Last 24 Hours (Table) 04/22/21 11:15 Blood Culture - Preliminary Blood No Growth after 48 hours 04/22/21 11:30 Blood Culture - Preliminary Blood No Growth after 48 hours 04/23/21 06:00 Gram Stain - Preliminary Toe - Right Fifth Wound Culture - Preliminary Assessment and Plan Assessment: 1. Right diabetic foot infection/right fifth toe wound; - patient remains on IV Unasyn and vancomycin; ID on board and recommending to continue current antibiotics pending wound and blood cultures 2. Possible osteomyelitis Bone scan is done and results are pending; patient remains on IV Unasyn and vancomycin - Final antibiotic pending culture results and bone scan results 3. Hypertension; continue with home dose of amlodipine 2.5 mg daily along with lisinopril 20 mg daily 4. Diabetes mellitus with long-term insulin use; patient remains on Levemir 85 units subcu daily at bedtime along with NovoLog 34 units every before meals and at bedtime 5. Hyperlipidemia; Lipitor 40 mg by mouth daily at bedtime and repatha 140 mg subcu every 14 days; niacin 1000 milligrams daily DVT prophylaxis; SCDs CODE STATUS; full code
[2021-04-25 16:40] LABS: Glucose,Whole Blood 205 mg/dL (75-99)
--- NOTE | 2021-04-25 19:00 | P.PN ---
Subjective Progress Note Date: 04/25/21 Principal diagnosis: Right diabetic foot infection/ right fifth toe wound Possible osteomyelitis 55-year-old white male with known history of diabetes, CAD with element of diabetic neuropathy/vasculopathy. The patient has developed a foot ulcer of the medial aspect of the fifth toe which now has significant erythema and draining. He will be started on empiric antibiotics with appropriate wound care. No fever. He does not even feel the ulcer per se. Underlying history of relatively labile diabetes. The patient is a non-smoker. No significant nausea or vomiting. No previous history of cellulitis. Element of Charcot foot has diagnosed recently by podiatry ID on board and recommending to continue current IV antibiotics in form of vancomycin and Unasyn; await final culture reports to determine antibiotic and duration; bone scan done and pending to rule out osteomyelitis 04/25/2021 Patient is seen and evaluated in room at bedside; denies any specific complaints Vital signs are stable with a temperature of 98.1, pulse 73, respirations 16 and blood pressure of 148/77 with SpO2 of 97% on room air Vancomycin trough of 19.6; bone scan reveals osteomyelitis of fifth digit of right foot Patient remains on IV vancomycin and Unasyn; bone scan is positive for osteomyelitis; ID on board and to make further recommendations on final choice of antibiotics and duration Objective - Vital Signs Vital signs: Vital Signs Temp 98.1 F 04/25/21 13:07 Pulse 73 04/25/21 13:07 Resp 16 04/25/21 13:07 BP 145/77 04/25/21 13:07 Pulse Ox 97 04/25/21 13:07 Intake & Output 04/24/21 04/25/21 04/25/21 18:59 06:59 18:59 Other: # Voids 2 1 - Exam - Constitutional General appearance: Present: average body habitus, cooperative, no acute distress - EENT Eyes: Present: anicteric sclerae, EOMI, PERRLA, normal appearance ENT: Present: hearing grossly normal, normal oropharynx Ears: bilateral: normal - Neck Neck: Present: normal ROM. Absent: lymphadenopathy, rigidity, thyromegaly Carotids: negative: bruit present Thyroid: bilateral: normal size, negative: enlarged, nodule - Respiratory Respiratory: bilateral: CTA, negative: rales, rhonchi, wheezing - Cardiovascular Rhythm: regular Heart sounds: normal: S1, S2 Abnormal Heart Sounds: Absent: systolic murmur, diastolic murmur - Gastrointestinal General gastrointestinal: Present: normal bowel sounds, soft. Absent: distended, organomegaly, tenderness - Genitourinary Genitourinary Comment(s): deferred - Integumentary Integumentary: Present: normal turgor. Absent: jaundiced, rash, ulcer - Neurologic Neurologic: Present: CNII-XII intact. Absent: focal deficits - Musculoskeletal Musculoskeletal: Present: gait normal, strength equal bilaterally - Psychiatric Psychiatric: Present: A&O x's 3, appropriate affect, intact judgment & insight - Labs CBC & Chem 7: 04/23/21 06:53 04/25/21 05:51 Labs: Abnormal Lab Results - Last 24 Hours (Table) 04/24/21 04/25/21 04/25/21 Range/Units 20:39 06:37 11:31 POC Glucose (mg/dL) 215 H 185 H 171 H (75-99) mg/dL Microbiology - Last 24 Hours (Table) 04/22/21 11:15 Blood Culture - Preliminary Blood No Growth after 72 hours 04/22/21 11:30 Blood Culture - Preliminary Blood No Growth after 72 hours Assessment and Plan Assessment: 1. Right diabetic foot infection/right fifth toe wound; - patient remains on IV Unasyn and vancomycin; ID on board and recommending to continue current antibiotics pending wound and blood cultures 2. Possible osteomyelitis Bone scan is done and results are pending; patient remains on IV Unasyn and vancomycin - Final antibiotic pending culture results and bone scan results 3. Hypertension; continue with home dose of amlodipine 2.5 mg daily along with lisinopril 20 mg daily 4. Diabetes mellitus with long-term insulin use; patient remains on Levemir 85 units subcu daily at bedtime along with NovoLog 34 units every before meals and at bedtime 5. Hyperlipidemia; Lipitor 40 mg by mouth daily at bedtime and repatha 140 mg subcu every 14 days; niacin 1000 milligrams daily DVT prophylaxis; SCDs CODE STATUS; full code
[2021-04-25] MEDS: ATORVASTATIN 40 MG TAB PO SCH (20:20)
[2021-04-25 20:50] LABS: Glucose,Whole Blood 211 mg/dL (75-99)
[2021-04-25] MEDS: INSULIN DETEMIR (LEVEMIR) 100 UNIT/ML SYR SQ SCH (21:20)
[2021-04-26] MEDS: AMPICILLIN-SULBACTAM 3 GM in SODIUM CHLORIDE 0.9% 100 ML IVPB SCH ×3 (05:07→19:55)
[2021-04-26] MEDS ORDERED: VANCOMYCIN TROUGH DUE 1 EACH MISC MISCELLANE ONE (06:00)
--- NOTE | 2021-04-26 06:45 | PN ---
PROGRESS NOTE DATE OF SERVICE: 04/25/2021 REASON FOR FOLLOWUP: Right fifth toe wound cellulitis and concern for underlying osteomyelitis. INTERVAL HISTORY: Patient is afebrile. The patient is breathing comfortably. Denies having any chest pain, shortness of breath or cough. No nausea, vomiting. No abdominal pain on any worsening pain to the right fifth toe. Swelling, redness and drainage has decreased. PHYSICAL EXAMINATION: Blood pressure 134/71 with a pulse of 77, temperature is 97.9. He is 97% on room air. General description is a middle-aged male lying in bed in no distress. Respiratory system: Unlabored breathing, clear to auscultation anteriorly. Heart S1, S2. Regular rate and rhythm. Abdomen soft, no tenderness. Right fifth toe swelling and redness has slightly decreased. LABS: Cultures currently pending. Creatinine 0.71. DIAGNOSTIC IMPRESSION AND PLAN: Patient with right fifth toe wound, diabetic foot infection with secondary cellulitis and osteomyelitis. Cultures are currently pending. Patient likely will need IV antibiotic on discharge. Currently on vancomycin and Unasyn to continue local care with Aquacel silver dressing and continue supportive care. MMODL / IJN: [id number] /
[2021-04-26 06:53] LABS: Glucose,Whole Blood 298 mg/dL (75-99)
[2021-04-26 06:59] LABS: Basophils % (A) 1 %; Eosinophils # (A) 0.3 k/uL (0-0.7); Eosinophils % (A) 4 %; HCT 40.5 % (39.0-53.0); HGB 14.2 gm/dL (13.0-17.5); Lymphocytes # (A) 1.6 k/uL (1.0-4.8); Lymphocytes % (A) 24 %; MCH 33.2 pg (25.0-35.0); MCV 94.6 fL (80.0-100.0); Monocytes # (A) 0.5 k/uL (0-1.0); Monocytes % (A) 8 %; Neutrophils # (A) 4.2 k/uL (1.3-7.7); Neutrophils % (A) 62 %; Platelet Count 295 k/uL (150-450); RBC 4.28 m/uL (4.30-5.90); RDW 12.5 % (11.5-15.5); WBC 6.8 k/uL (3.8-10.6)
[2021-04-26 07:10] LABS: African American GFR (CKD) >90 (>60 ml/min/1.73 sqM); Anion Gap 10 mmol/L; Blood Urea Nitrogen 19 mg/dL (9-20); Calcium 9.9 mg/dL (8.4-10.2); Carbon Dioxide 26 mmol/L (22-30); Chloride 102 mmol/L (98-107); Glucose 299 mg/dL (74-99); Non-African American GFR(CKD) >90 (>60 ml/min/1.73 sqM); Potassium 4.7 mmol/L (3.5-5.1); Sodium 138 mmol/L (137-145)
[2021-04-26 08:06] LABS: C Reactive Protein 1.4 mg/dL (<1.0)
[2021-04-26] MEDS: INSULIN ASPART (NovoLOG) 100 UNIT/ML VIAL SQ SCH ×7 (08:18→21:06)
[2021-04-26] MEDS: amLODIPine 2.5 MG TAB PO SCH (08:19)
[2021-04-26] MEDS: PREGABALIN 100 MG CAP PO SCH ×3 (08:20→21:06)
[2021-04-26] MEDS: RANOLAZINE 500 MG TAB.ER.12H PO SCH ×2 (08:20→21:06)
[2021-04-26] MEDS: ASPIRIN 81 MG PO SCH (08:20)
[2021-04-26] MEDS: lisinopriL 20 MG TAB PO SCH (08:20)
--- NOTE | 2021-04-26 08:27 | P.PN ---
Subjective Principal diagnosis: Toe cellulitis The patient is a 55-year-old white male with known history of CAD with diabetic foot ulcer who comes in For right fifth digit medial aspect the diabetic foot ulcer with cellulitis. Bone scan shows osteomyelitis. No fever Minimal pain is stated. No fever. Blood sugar is nominal. Objective - Vital Signs Vital signs: Vital Signs Temp 97.9 F 04/26/21 07:30 Pulse 80 04/26/21 07:30 Resp 17 04/26/21 07:30 BP 145/83 04/26/21 07:30 Pulse Ox 97 04/26/21 07:30 Intake & Output 04/25/21 04/26/21 04/26/21 18:59 06:59 18:59 Intake Total 300 Balance 300 Intake: Oral 300 Other: # Voids 3 2 # Bowel Movements 1 - Constitutional General appearance: Present: no acute distress - EENT Eyes: Absent: abnormal pupil - Neck Neck: Absent: lymphadenopathy - Respiratory Respiratory: bilateral: CTA - Cardiovascular Rhythm: regular Heart sounds: normal: S1, S2 Abnormal Heart Sounds: Absent: S3 Gallop - Gastrointestinal General gastrointestinal: Present: soft. Absent: tenderness - Integumentary Integumentary Comment(s): Diabetic foot ulcer with cellulitis of the medial fifth digit - Labs CBC & Chem 7: 04/26/21 06:38 04/26/21 06:38 Labs: Abnormal Lab Results - Last 24 Hours (Table) 04/25/21 04/25/21 04/25/21 Range/Units 11:31 16:38 20:48 RBC (4.30-5.90) m/uL Glucose (74-99) mg/dL POC Glucose (mg/dL) 171 H 205 H 211 H (75-99) mg/dL C-Reactive Protein (<1.0) mg/dL 04/26/21 04/26/21 04/26/21 Range/Units 06:38 06:38 06:51 RBC 4.28 L (4.30-5.90) m/uL Glucose 299 H (74-99) mg/dL POC Glucose (mg/dL) 298 H (75-99) mg/dL C-Reactive Protein 1.4 H (<1.0) mg/dL Microbiology - Last 24 Hours (Table) 04/22/21 11:15 Blood Culture - Preliminary Blood No Growth after 72 hours 04/22/21 11:30 Blood Culture - Preliminary Blood No Growth after 72 hours Assessment and Plan (1) Diabetic foot ulcer Current Visit: Yes Status: Acute Code(s): E11.621 - TYPE 2 DIABETES MELLITUS WITH FOOT ULCER; L97.509 - NON-PRESSURE CHRONIC ULCER OTH PRT UNSP FOOT W UNSP SEVERITY SNOMED Code(s): 888238268 (2) CAD (coronary artery disease) Current Visit: No Status: Acute Code(s): I25.10 - ATHSCL HEART DISEASE OF [place] CORONARY ARTERY W/O ANG PCTRS SNOMED Code(s): 52215412 (3) History of myocardial infarction Current Visit: Yes Status: Acute Code(s): I25.2 - OLD MYOCARDIAL INFARCTION SNOMED Code(s): 040946408 (4) Hyperlipidemia Current Visit: Yes Status: Acute Code(s): E78.5 - HYPERLIPIDEMIA, UNSPECIFIED SNOMED Code(s): 97683776 Plan: The patient is continued on empiric treatment for osteomyelitis. I suspect the patient will need a PICC line once cultures are elucidated. Appreciate infectious disease support
[2021-04-26] MEDS ORDERED: NIACIN TR 250 MG CAPSULE.ER PO SCH (09:00)
[2021-04-26] MEDS: VANCOMYCIN 1,750 MG in SODIUM CHLORIDE 0.9% 500 ML 500 ML IVPB SCH ×2 (10:16→16:32)
[2021-04-26 11:29] LABS: Glucose,Whole Blood 246 mg/dL (75-99)
[2021-04-26 11:38] VITALS: RESP 18
[2021-04-26 16:33] LABS: Glucose,Whole Blood 255 mg/dL (75-99)
[2021-04-26 20:39] LABS: Glucose,Whole Blood 242 mg/dL (75-99)
[2021-04-26] MEDS: ATORVASTATIN 40 MG TAB PO SCH (21:06)
[2021-04-26] MEDS: INSULIN DETEMIR (LEVEMIR) 100 UNIT/ML SYR SQ SCH (21:07)
--- NOTE | 2021-04-26 23:13 | PN ---
PROGRESS NOTE DATE OF SERVICE: 04/26/2021 REASON FOR FOLLOWUP: Right fifth toe osteomyelitis and diabetic foot infection. INTERVAL HISTORY: Patient is afebrile. The patient is breathing comfortably. Denies having any chest pain, shortness of breath, abdominal pain, any worsening right foot area. PHYSICAL EXAMINATION: Blood pressure is 139/73 with a pulse of 73, temperature 97.9. He is 96% on room air. GENERAL DESCRIPTION: The patient is a middle-aged male, lying in bed, in no distress. RESPIRATORY SYSTEM: Unlabored breathing, clear to auscultation anteriorly. HEART: S1, S2. Regular rate and rhythm. ABDOMEN: Soft. LEGS: Right foot swelling has decreased. LABS: Hemoglobin is 14.2, white count 6.8. BUN of 19, creatinine 0.66. DIAGNOSTIC IMPRESSION AND PLAN: Patient with right fifth toe diabetic foot infection with wound, concern for underlying osteomyelitis. Culture with nonhemolytic strep and anaerobes. Unasyn to continue. Vancomycin discontinued. Plan is to finish therapy with Rocephin 2 grams daily along with oral Flagyl for a total of 6 weeks for which a PICC line placed. Continue supportive care. MMODL / IJN: [id number] /
[2021-04-27] MEDS: AMPICILLIN-SULBACTAM 3 GM in SODIUM CHLORIDE 0.9% 100 ML IVPB SCH ×2 (00:03→05:57)
[2021-04-27] MEDS: SODIUM CHLORIDE 0.9% 1,000 ML IV SCH ×2 (00:03→11:58)
[2021-04-27 06:52] LABS: Glucose,Whole Blood 241 mg/dL (75-99)
[2021-04-27 07:42] VITALS: TEMP 98.3
[2021-04-27] MEDS: amLODIPine 2.5 MG TAB PO SCH (07:44)
[2021-04-27] MEDS: INSULIN ASPART (NovoLOG) 100 UNIT/ML VIAL SQ SCH ×4 (07:44→12:07)
[2021-04-27] MEDS: ASPIRIN 81 MG PO SCH (07:45)
[2021-04-27] MEDS: RANOLAZINE 500 MG TAB.ER.12H PO SCH (07:45)
[2021-04-27] MEDS: PREGABALIN 100 MG CAP PO SCH (07:45)
[2021-04-27] MEDS: lisinopriL 20 MG TAB PO SCH (07:45)
[2021-04-27] MEDS ORDERED: NIACIN TR 500 MG CAPLET PO SCH (09:00)
[2021-04-27 09:05] LABS: HCT 39.7 % (39.6-50.0); MCH 33.1 pg (27.0-32.0); MCHC 35.3 g/dL (32.0-37.0); MCV 93.9 fL (80.0-97.0); Mean Platelet Volume 9.2 fL (9.5-12.2); Platelet Count 288 X 10*3/uL (140-440); RBC 4.23 X 10*6/uL (4.40-5.60); RDW 12.1 % (11.5-14.5); WBC 7.29 X 10*3/uL (4.50-10.00)
[2021-04-27 09:54] LABS: African American GFR (CKD) 116.6 (60.0-200.0); Albumin 4.5 g/dL (3.80-4.90); Albumin/Globulin Ratio 2.05 (1.60-3.17); Anion Gap 12.9 mmol/L (4.00-12.00); BUN/Creat Ratio 26.25 Ratio (12.00-20.00); Calcium 9.4 mg/dL (8.7-10.3); Carbon Dioxide 20.1 mmol/L (21.6-31.8); Globulin 2.2 g/dL (1.6-3.3); Non-African American GFR(CKD) 100.6 (60.0-200.0); Potassium 4.7 mmol/L (3.5-5.5); Total Bilirubin 0.3 mg/dL (0.2-1.2); Total Protein 6.7 g/dL (6.2-8.2)
[2021-04-27 11:30] LABS: Glucose,Whole Blood 255 mg/dL (75-99)
[2021-04-27] MEDS ORDERED: LIDOCAINE 1% INJ 10MG/ML (20 ML MDV) ONE (13:16)
[2021-04-27] MEDS ORDERED: LIDOCAINE 1% INJ 10MG/ML (20 ML MDV) SQ ONE (13:22)
--- NOTE | 2021-04-27 14:06 | PN ---
PROGRESS NOTE DATE OF SERVICE: 04/27/2021 REASON FOR FOLLOWUP: Right fifth toe wound and osteomyelitis. INTERVAL HISTORY: The patient is afebrile. The patient is breathing comfortably. Patient denies having any chest pain, shortness of breath, abdominal pain, or any worsening pain in the right foot. PHYSICAL EXAMINATION: Blood pressure 120/78 with a pulse of 94, temperature 98.3, he is 99% on room air. The patient is a middle-aged male, lying in bed, in no distress. RESPIRATORY SYSTEM: Unlabored breathing, clear to auscultation anteriorly. HEART: S1, S2. Regular rate and rhythm. ABDOMEN: Soft, nontender. LEGS: No obvious drainage on the dressing. LABS: Hemoglobin 14, white count 7.9, BUN of 21, creatinine 0.8, local culture with strep and anaerobes. DIAGNOSTIC IMPRESSION AND PLAN: Patient with right diabetic foot infection with wound on the medial aspect of the right fifth toe with concern for possible secondary osteomyelitis, acute, with underlying diabetes mellitus. The patient is to ( ) 2 mg, along with oral Flagyl for 6 weeks. Weekly monitoring of CBC, BMP, and continue close outpatient followup. MMODL / IJN: [id number] /
--- NOTE | 2021-04-27 14:16 | P.DS ---
Providers Date of admission: 04/22/21 10:37 Attending physician: Federico Rivera Consults: 04/22/21 11:18 Consult Physician Routine Consulting Provider: Lisa Smith Consult Reason/Comments: Diabetic foot ulcer, ostium myelitis Do you want consulting provider notified?: Yes Primary care physician: Federico Rivera - Discharge Diagnosis(es) (1) Diabetic foot ulcer Current Visit: Yes Status: Acute (2) CAD (coronary artery disease) Current Visit: No Status: Acute (3) History of myocardial infarction Current Visit: Yes Status: Acute (4) Hyperlipidemia Current Visit: Yes Status: Acute Hospital Course: The patient is a 55-year-old white male with known history of coronary artery disease diabetes and peripheral vascular disease hyperlipidemia who came in with ulcer of the right medial aspect of the fifth digit. The patient was elucidated for osteomyelitis and was found to have ostial myelitis of the foot. The patien t was placed on a permanent about her treatment and will be sent home with appropriate Rocephin IV with tonight is all. The patient tolerated the treatment so far well and were hopeful to sustain appropriate cure after treatment. Protocol was discussed with the patient. He will be discharged once stable and cleared by infectious disease. Patient Condition at Discharge: Stable Plan - Discharge Summary Discharge Rx Participant: No New Discharge Prescriptions: New metroNIDAZOLE [Flagyl] 500 mg PO Q8HR #90 tab cefTRIAXone [Rocephin] 2,000 mg IVP Q24HR #42 vial Continue Insulin Glargine [Lantus] 85 unit SQ HS Niacin [Niacin ER] 1,000 mg PO DAILY Nitroglycerin Sl Tabs [Nitrostat] 0.4 mg SUBLINGUAL Q5M PRN PRN Reason: Chest Pain Aspirin 325 mg PO DAILY Rosuvastatin [Crestor] 20 mg PO HS amLODIPine [Norvasc] 2.5 mg PO DAILY Insulin Lispro [humaLOG Kwikpen] 34 unit SQ AC-TID Evolocumab [Repatha Sureclick] 140 mg SQ Q14D Pregabalin [Lyrica] 100 mg PO TID Enalapril [Vasotec] 10 mg PO DAILY Ranolazine [Ranolazine ER] 1,000 mg PO BID Discharge Medication List Insulin Glargine [Lantus] 85 unit SQ HS 02/19/15 [History] Niacin [Niacin ER] 1,000 mg PO DAILY 02/19/15 [History] Aspirin 325 mg PO DAILY 03/08/18 [History] Insulin Lispro [humaLOG Kwikpen] 34 unit SQ AC-TID 03/08/18 [History] Nitroglycerin Sl Tabs [Nitrostat] 0.4 mg SUBLINGUAL Q5M PRN 03/08/18 [History] Rosuvastatin [Crestor] 20 mg PO HS 03/08/18 [History] amLODIPine [Norvasc] 2.5 mg PO DAILY 03/08/18 [History] Enalapril [Vasotec] 10 mg PO DAILY 04/22/21 [History] Evolocumab [Repatha Sureclick] 140 mg SQ Q14D 04/22/21 [History] Pregabalin [Lyrica] 100 mg PO TID 04/22/21 [History] Ranolazine [Ranolazine ER] 1,000 mg PO BID 04/22/21 [History] cefTRIAXone [Rocephin] 2,000 mg IVP Q24HR #42 vial 04/27/21 [Rx] metroNIDAZOLE [Flagyl] 500 mg PO Q8HR #90 tab 04/27/21 [Rx] Follow up Appointment(s)/Referral(s): Federico Rivera MD [Primary Care Provider] - 04/29/21 9:20 am [facility],Infusion [NON-STAFF] - 04/28/21 2:00 pm Jacky Reece [NON-STAFF] - (Address: [address] [place] [address] *Take dressing prescription here to obtain supplies) Lisa Smith MD [STAFF PHYSICIAN] - 1 Week Ambulatory/Diagnostic Orders: Basic Metabolic Panel [LAB.AMB] Location: None Selected C Reactive Protein [LAB.AMB] Location: None Selected Complete Blood Count w/diff [LAB.AMB] Location: None Selected Erythrocyte Sedimentation Rate [LAB.AMB] Location: None Selected Patient Instructions/Handouts: Osteomyelitis (DC), Diabetic Foot Ulcers (DC) Activity/Diet/Wound Care/Special Instructions: 1. Patient will go to [facility] for outpatient IV Rocephin 2gm daily for [address] Smith. The prescription is at the office. First appointment: 04/28/21 at 2:00p.m. 2. Per Dr. Smith's order, patient should change dressing daily on right foot by cleansing with normal saline, applying dry aquacel silver to wound bed, cover with 4x4 gauze, then wrap with Kerlix. 3. Please take prescription for dressing changes to [facility] [place] in [place] to obtain supplies.
[2021-04-27 14:28] VITALS: BP 125/70; PULSE 59
--- NOTE | 2021-04-27 17:46 | IR ---
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 The risks, complications, benefits, and alternatives we re discussed and any questions were answered. Informed consent was obtained. The patient was placed supine. Maximal barrier technique utilized. After informed consent, the skin o verlying the left brachial vein was localized with ultrasound and noted to be compressible and patent . An ultrasound image was obtained and submitted on the patient's chart. Sterile technique utilized with the ultrasound machine. The skin overlying was prepped and draped and Lidocaine used for local a nesthesia. Access was gained to the vein under ultrasound guidance with a 21 gauge needle and a 0.018 inch wire was advanced. A skin bj was made with a scalpel. Access site was dilated with Peel-Away sheath. 4 FR single lumen catheter tailored to the appropriate length of 43 cm and advanced such that the distal tip is at the cavoatrial junction. Spot image was obtained verifying PICC placement. Cath eter was fixed to the skin and a sterile dressing was placed following hemostasis. Catheter was aspir ated and flushed with saline. Patient was discharged from the radiology department in stable conditio n without immediate complication. Fluoro time: 0.2 minutes Fluoroscopic images obtained: 37 IMPRESSION: Status post ultrasound-guided and fluoroscopic-guided left brachial vein 4FR single lumen PICC placem ent, ready for use.
[2021-04-29] MEDS ORDERED: PATIENT'S OWN (Evolocumab [Repatha Sureclick] 140 MG/ML Pen.Injctr) SQ SCH (09:00)
== END 2021-04-27 15:10 | disposition home or self-care (01) | DRG 638 ==
LOC: EC 08:34 → 4SSUR 10:37
PROVIDERS: ADMIT Family Medicine; ATTEND Family Medicine
PROC: 02HV33Z Insertion of Infusion Device into Superior Vena Cava, Percutaneous Approach (ICD-10-PCS; principal; 2021-04-27 09:45)
DX: E10.69 Type 1 diabetes mellitus with other specified complication (principal); M86.9 Osteomyelitis, unspecified; E10.42 Type 1 diabetes mellitus with diabetic polyneuropathy; E10.51 Type 1 diabetes mellitus with diabetic peripheral angiopathy without gangrene; E10.621 Type 1 diabetes mellitus with foot ulcer; E10.610 Type 1 diabetes mellitus with diabetic neuropathic arthropathy; L97.519 Non-pressure chronic ulcer of other part of right foot with unspecified severity; Z79.4 Long term (current) use of insulin; E66.9 Obesity, unspecified; Z68.34 Body mass index [BMI] 34.0-34.9, adult; F17.210 Nicotine dependence, cigarettes, uncomplicated; Z79.82 Long term (current) use of aspirin; Z79.899 Other long term (current) drug therapy; I10 Essential (primary) hypertension; L03.039 Cellulitis of unspecified toe; N28.9 Disorder of kidney and ureter, unspecified; I25.10 Atherosclerotic heart disease of native coronary artery without angina pectoris; E78.5 Hyperlipidemia, unspecified; I25.2 Old myocardial infarction; Z95.1 Presence of aortocoronary bypass graft; Z95.5 Presence of coronary angioplasty implant and graft; Z90.89 Acquired absence of other organs; Z98.890 Other specified postprocedural states; Z71.3 Dietary counseling and surveillance; Z83.3 Family history of diabetes mellitus; Z82.3 Family history of stroke; Z80.9 Family history of malignant neoplasm, unspecified
CPT/HCPCS: 36415; 36573; 78315; 80048; 80053; 80202; 82565; 83605; 85025; 85027; 85652; 86140; 87040; 87070; 87075; 87077; 87186; 87205; 94660; 99285

== ENCOUNTER 2022-11-02 13:54 | Emergency (ER) | payer BC ==
[2022-11-02 14:02] VITALS: TEMP 97.8
[2022-11-02] MEDS ORDERED: KETOROLAC 15 MG/ML 1 ML VIAL IM STA (14:13)
[2022-11-02] MEDS ORDERED: HYDROmorphone 1 MG/ML 1 ML SYRINGE IM STA (14:13)
--- NOTE | 2022-11-02 14:20 | ED ---
General Adult HPI - General Chief complaint: Fall Stated complaint: Fall/back pain/post surg Time Seen by Provider: 11/02/22 14:00 Source: patient, EMS, RN notes reviewed, old records reviewed Mode of arrival: EMS Limitations: no limitations - History of Present Illness Initial comments: This is a 57-year-old male presents emergency Department complaining of lower back pain. Patient states on October 26 had back surgery done at [facility]. Patient states Monday he was sitting on the edge of tub and fell into the tub and since then his lower back has been hurting considerably more. Patient states she's unable to walk secondary to the pain. Patient denies any weakness or numbness. Patient states that if he can overcome the pain he be lieves he has the ability to walk it just hurts too much to walk. Patient states at the time his took off the bandage that was some bleeding however is not bleeding through today. Patient denies any urinary incontinence or retention patient denies any incontinence of stool. Patient is wearing a back brace - Related Data Home Medications Medication Instructions Recorded Confirmed Niacin [Niacin ER] 1,000 mg PO DAILY 02/19/15 11/02/22 Insulin Lispro [humaLOG Kwikpen] 34 unit SQ TID-W/MEALS 03/08/18 11/02/22 Nitroglycerin Sl Tabs [Nitrostat] 0.4 mg SUBLINGUAL Q5M PRN 03/08/18 11/02/22 Rosuvastatin [Crestor] 20 mg PO HS 03/08/18 11/02/22 amLODIPine [Norvasc] 2.5 mg PO DAILY 03/08/18 11/02/22 Enalapril [Vasotec] 10 mg PO DAILY 04/22/21 11/02/22 Pregabalin [Lyrica] 100 mg PO TID 04/22/21 11/02/22 Ranolazine [Ranolazine ER] 1,000 mg PO BID 04/22/21 11/02/22 Aspirin EC [Ecotrin Low Dose] 81 mg PO DAILY 11/02/22 11/02/22 Docusate [Colace] 100 mg PO BID 11/02/22 11/02/22 HYDROcodone/APAP 10-325MG [[place] 1 tab PO Q4HR PRN 11/02/22 11/02/22 10-325] Insulin Glargine-Yfgn [Semglee 85 units SQ HS 11/02/22 11/02/22 (Yfgn) Pen] Lactulose 20 gm PO BID 11/02/22 11/02/22 Tamsulosin [Flomax] 0.4 mg PO DAILY 11/02/22 11/02/22 methocarbamoL [Methocarbamol] 750 mg PO Q6H PRN 11/02/22 11/02/22 Allergies Allergy/AdvReac Type Severity Reaction Status Date / Time No Known Allergies Allergy Verified 11/02/22 15:43 Review of Systems ROS Statement: Those systems with pertinent positive or pertinent negative responses have been documented in the HPI. ROS Other: All systems not noted in ROS Statement are negative. Past Medical History Past Medical History: Coronary Artery Disease (CAD), Diabetes Mellitus, Hyperlipidemia, Myocardial Infarction ([place]), Renal Disease Additional Past Medical History / Comment(s): Burling disc in back, sore on the bottom of right foot went to the wound center Last Myocardial Infarction Date:: 2010 History of Any Multi-Drug Resistant Organisms: None Reported Past Surgical History: Coronary Bypass/CABG, Heart Catheterization With Stent, Tonsillectomy Additional Past Surgical History / Comment(s): EGD, EXCISION OF ABSCESS, bone biopsy 04/2021 Past Anesthesia/Blood Transfusion Reactions: No Reported Reaction Date of Last Stent Placement:: 2010 Past Psychological History: No Psychological Hx Reported Smoking Status: Current every day smoker Past Alcohol Use History: Occasional Additional Past Alcohol Use History / Comment(s): Smoke 1/2 packed a day, has smoke for 40yrs Past Drug Use History: None Reported - Past Family History Father Family Medical History: Diabetes Mellitus Mother Family Medical History: Cancer, CVA/TIA General Exam - General Exam Comments Initial Comments: GENERAL: Patient is well-developed and well-nourished. Patient is nontoxic and well- hydrated and is in moderate distress. ENT: Neck is soft and supple. No significant lymphadenopathy is noted. Oropharynx is clear. Moist mucous membranes. Neck has full range of motion without eliciting any pain. EYES: The sclera were anicteric and conjunctiva were pink and moist. Extraocular movements were intact and pupils were equal round and reactive to light. Eyelids were unremarkable. PULMONARY: Unlabored respirations. Good breath sounds bilaterally. No audible rales rhonchi or wheezing was noted. CARDIOVASCULAR: There is a regular rate and rhythm without any murmurs gallops or rubs. ABDOMEN: Soft and nontender with normal bowel sounds. SKIN: Skin is clear with no lesions or rashes and otherwise unremarkable. NEUROLOGIC: Patient is alert and oriented x3. Cranial nerves II through XII are grossly intact. Motor and sensory are also intact. Normal speech, volume and content. Symmetrical smile. Perineum exam was normal MUSCULOSKELETAL: Normal extremities with adequate strength and full range of motion. No lower extremity swelling or edema. No calf tenderness. LYMPHATICS: No significant lymphadenopathy is noted PSYCHIATRIC: Normal psychiatric evaluation. Limitations: no limitations Course Vital Signs 11/02/22 11/02/22 13:55 15:25 Temperature 97.8 F Pulse Rate 92 94 Respiratory 20 18 Rate Blood Pressure 122/68 118/64 O2 Sat by Pulse 100 97 Oximetry Medical Decision Making - Medical Decision Making Was pt. sent in by a medical professional or institution (, PA, OBSTETRICAL NURSE, urgent care, hospital, or snf...) When possible be specific @ -No Did you speak to anyone other than the patient for history (EMS, parent, family, police, friend...)? What history was obtained from this source @ -No Did you review nursing and triage notes (agree or disagree)? Why? @ -I reviewed and agree with nursing and triage notes Were old charts reviewed (outside hosp., previous admission, EMS record, old EKG, old radiological studies, urgent care reports/EKG's, snf records)? Report findings @ -No old charts were reviewed Differential Diagnosis (chest pain, altered mental status, abdominal pain women, abdominal pain men, vaginal bleeding, weakness, fever, dyspnea, syncope, headache, dizziness, GI bleed, back pain, seizure, CVA, palpatations, mental health)? @ -not applicable EKG interpreted by me (3pts min.). @ -As above X-rays interpreted by me (1pt min.). @ -Lumbosacral x-ray was interpreted by myself. X-ray shows no acute fracture CT interpreted by me (1pt min.). @ -None done U/S interpreted by me (1pt. min.). @ -None done What testing was considered but not performed or refused? (CT, X-rays, U/S, labs)? Why? @ -Did consider doing a CAT scan of his back but patient had no neurologic deficit no weakness numbness. What meds were considered but not given or refused? Why? @ -None Did you discuss the management of the patient with other professionals (professionals i.e. , PA, OBSTETRICAL NURSE, lab, RT, psych nurse, psychotherapist social worker, county agent, teacher, airport operations officer, case worker)? Give summary @ -No Was smoking cessation discussed for >3mins.? @ -No Was critical care preformed (if so, how long)? @ -No Were there social determinants of health that impacted care today? How? (Homelessness, low income, unemployed, alcoholism, drug addiction, transportation, low edu. Level, literacy, decrease access to med. care, long-term, rehab)? @ -No Was there de-escalation of care discussed even if they declined (Discuss DNR or withdrawal of care, Hospice)? DNR status @ -No What co-morbidities impacted this encounter? (DM, HTN, Smoking, COPD, CAD, Cancer, CVA, ARF, Chemo, Hep., AIDS, mental health diagnosis, sleep apnea, morbid obesity)? @ -None Was patient admitted / discharged? Hospital course, mention meds given and route, prescriptions, significant lab abnormalities, going to OR and other pertinent info. @ -Patient will be discharged to follow-up with the surgeon patient is feeling considerably better after he received Dilaudid and Toradol. Patient's x-ray did not show any acute fracture or changes to the hardware that was placed. Patient is able to get up and stand with assistance as he was prior to the fall Undiagnosed new problem with uncertain prognosis? @ -No Drug Therapy requiring intensive monitoring for toxicity (Heparin, Nitro, Insulin, Cardizem)? @ -No Were any procedures done? @ -No Diagnosis/symptom? @ -Sacral strain Acute, or Chronic, or Acute on Chronic? @ -Acute on chronic Uncomplicated (without systemic symptoms) or Complicated (systemic symptoms)? @ -default Side effects of treatment? @ -No Exacerbation, Progression, or Severe Exacerbation? @ -No Poses a threat to life or bodily function? How? (Chest pain, [place], [place], pneumonia, PE, COPD, DKA, ARF, appy, cholecystitis, CVA, Diverticulitis, Homicidal, Suicidal, threat to staff... and all critical care pts) @ -No Disposition Clinical Impression: Lumbosacral strain Disposition: HOME SELF-CARE Condition: Good Additional Instructions: Patient needs to call his surgeon and let him know what has occurred and what follow-up he would prefer. Patient should return to the ER if there is any neurologic deficit or worsening of symptoms. Is patient prescribed a controlled substance at d/c from ED?: No Referrals: Federico Rivera MD [Primary Care Provider] - 1-2 days [facility], [NON-STAFF] - 1-2 days Time of Disposition: 15:59
--- NOTE | 2022-11-02 15:22 | XR ---
EXAMINATION TYPE: XR lumbosacral spine min 4V DATE OF EXAM: 11/02/2022 3:10 PM INDICATION: Patient age:Male; 57 years old; Reason for study: Fall, recent surgery; COMPARISON: MRI lumbar spine TECHNIQUE: Frontal, lateral , bilateral oblique and coned in L5-S1 lateral views of the spine. FINDINGS: Postsurgical changes to the spine with hardware extending from L4 to S1. Hardware appears i ntact. No evidence of any acute osseous pathology. No evidence of loss of vertebral body height is s een. There is postsurgical alignment of the lumbar vertebral bodies. Mild scattered disc space narrow ing. Multilevel marginal osteophyte formation throughout the visualized spine. There is facet joint a rthropathy throughout the spine. Scattered at least mild neural foraminal stenosis. Osseous fusion material is noted along the posterior aspect both bilaterally. IMPRESSION: Postsurgical changes with hardware intact. No evidence for acute fracture.
[2022-11-02 15:33] VITALS: BP 118/64; PULSE 94; RESP 18
[2022-11-02] MEDS ORDERED: HYDROmorphone 0.5 MG/0.5 ML SYRINGE IM STA (16:19)
== END 2022-11-02 16:39 | disposition home or self-care (01) ==
LOC: EC 13:54
DX: S39.012A Strain of muscle, fascia and tendon of lower back, initial encounter (principal); E11.9 Type 2 diabetes mellitus without complications; E78.5 Hyperlipidemia, unspecified; I25.10 Atherosclerotic heart disease of native coronary artery without angina pectoris; I25.2 Old myocardial infarction; F17.200 Nicotine dependence, unspecified, uncomplicated; Z79.4 Long term (current) use of insulin; Z79.82 Long term (current) use of aspirin; X58.XXXA Exposure to other specified factors, initial encounter
CPT/HCPCS: 72110; 99283; 96372 ×3; J1170 ×2; J1885

== ENCOUNTER → 2023-08-16 | Outpatient (CLI) | payer BC | END | disposition home or self-care (01) | LOC: LABPAT 14:21 | PROVIDERS: ATTEND Orthopaedic Surgery | DX: Z01.812 Encounter for preprocedural laboratory examination (principal); Z22.322 Carrier or suspected carrier of Methicillin resistant Staphylococcus aureus; M48.061 Spinal stenosis, lumbar region without neurogenic claudication | CPT/HCPCS: 36415; 86850; 86900; 86901; 87070 ==

== ENCOUNTER 2023-08-21 06:30 | Inpatient (IN) | payer BC ==
--- NOTE | 2023-08-21 06:14 | P.HPOR ---
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 Lerma) Duration of current treatment regiment: N/A HISTORY: Xrays New xrays taken in office Trauma or injury No Work-Related No Pain description aching, sharp. Location diffuse Patient notes that their pain radiates to bilateral lower extremities Activity Modification yes Hand Dominance right TREATMENTS COMPLETED: 6 weeks of PT completed? Month and Year of last PT date? Yes How many sessions? N/A Did it help? No Physician directed home exercise completed? No Medications yes List: Aspirin Alternative interventions Chiropractic: No Massage therapy: No R.I.C.E: yes Brace: No Injections No RFA: No SUBJECTIVE: Mr. Rsusell presents to the office for an evaluation of their lumbar pain and pre-operative assessment. He has continued low back pain, LE weakness, paresthesias and numbness through the LE b/l. He states he has done PT, HEP, HMP, OT, Activity modification, ICE, Chiropractics, medications Rx and OTC without improvement. He has had injections in the past and these did not work. He states nothing has worked thus far and he would like to continue with surgical intervention for his ASD and stenosis as well as alignment issues. He states no bowel or bladder issues at this time. No perineal numbness/tingling yet. For their symptoms, the patient has been taking Aspirin. Otherwise the patient denies any f/c/sob/cp, no incision concerns, no bladder or bowel retention/incontinence, no perineal numbness/tingling, and ambulates independently. HPI: Mr. Russell presents to the office for an evaluation of their lumbar pain. Patient reports lumbar pain with no known injury or trauma to indicate an exact onset of their symptoms. In addition to their lumbar pain, they do report that it radiates into the bilateral lower extremities, associated with numbness and tingling through. Patient had a previous lumbar decompression and fusion on 10/26/[address] Lerma. He states his symptoms did not resolve after surgery. Patient note she has a right drop foot. Overall the patient has seen a progressi ve increase in symptoms since their onset. Mr. Russell symptoms are exacerbated with walking, standing, and sit to stand, due to this they notes that it is increasingly difficult for Mr. Russell to complete many of their daily tasks. Patient is having mild sleep disturbances as well due to their ongoing pain and associated symptoms. Regarding treatments, the patient has previously trialed physical therapy with no relief. Patient denies trialing any other modalities at this time. For their symptoms, the patient has been taking Aspirin. Otherwise the patient denies any f/c/sob/cp, no incision concerns, no bladder or bowel retention/incontinence, no perineal numbness/tingling, and ambulates independently. The patients' past social, medical, family, surgical history, as well as review of systems, have been reviewed. Please refer to the Neurosurgery History and Physical form that has been scanned in to our electronic medical record system. 14 points review of systems completed and as stated in HPI, all other systems reviewed are negative. Smoking: current smoker P3 Alcohol: currently drinks alcohol P3 Family History: Reviewed, see appropriate section of the chart for details. P2 Past Medical History: Reviewed, see appropriate section of the chart for d etails. V2Kyfeshg Medications: Rx: amLODIPine 2.5 mg tablet Ref: 0 Rx: aspirin 81 mg tablet,delayed release Ref: 0 Rx: enalapril maleate 10 mg tablet Ref: 0 Rx: HumaLOG U-100 Insulin Ref: 0 Rx: Lantus U-100 Insulin Ref: 0 Rx: Niacin (niacinamide) Ref: 0 Rx: pregabalin 200 mg capsule Ref: 0 Rx: ranolazine ER 1,000 mg tablet,extended release,12 hr Ref: 0 Rx: rosuvastatin 20 mg tablet Ref: 0 PHYSICALEXAMINATION: General: Awake, alert, appropriate for age, in no acute distress. HEENT: No unusual neck masses around region of lateral neck triangle, thyroid, supraclavicular groove Heart: Regular rate and rhythm, normal S1, S2 and no murmur/gallop. Lungs: Clear to auscultation bilaterally with no use of accessory muscles. Extremities: Skin warm and dry without acute lesions, coloration, temperature, skin intact, no tenderness or erythema Integument: Hairy patches: ABSENT Dorsal skin dimples: ABSENT Cafe au lait spots: ABSENT Palpation: Please see Pain drawing on Intake sheet for further detail. Midline spinal tenderness: YES E6 Cervical Tenderness: No E6 Paralumbar tenderness: YES E6 Parathoracic tenderness: YES E6 Buttocks tenderness: No E6 POSTURAL and MUSCULO-SKELETAL EVALUATION: Coronal Balance: NEUTRAL Recumbent testing: Patient is able to lay flat on back Sagittal Balance: NEUTRAL Shoulder Profile: LEVEL Pelvic Girdle: LEVEL Neck ROM: UNRESTRICTED Lumbar ROM: RESTRICTED Shoulder ROM: Symmetrical Hip ROM: Symmetrical Knee ROM: Symmetrical Hands: Normal appearance, symmetrical Feet: Normal appearance, Symmetrical VASCULAR STATUS : LEFT RIGHT Wrist Pulses INTACT INTACT Pedal Pulses (Dors. pedis & post.tibialis) INTACT INTACT Color NORMAL NORMAL Edema Absent Absent NEUROLOGIC EXAMINATION: Mental Status:Awake and alert, fully oriented, with normal attention, concentration and memory, and fluent, appropriate speech. Cranial Nerves: I: Olfactory not tested. II: Visual acuity normal, no visual field deficit noted with confrontation. III,IV: Normal pupillary reflexes & intact extraocular movements without nystagmus. V,: Intact symmetrical facial sensation. VII: Intact symmetrical facial motor movement VIII: Hearing intact. IX,X: Intact gag, swallow, & normal voice. XI: Sternocleidomastoid, trapezius function intact. XII: Tongue midline with normal movements. L'hermitte's Sign: Negative / absent Spurling'Sign: Absent bilaterally. Cubital percussion test: Absent bilaterally. Huerta-Tinel sign - Carpal region: Absent bilaterally. Straight Leg Raising: Absent bilaterally. Crossed straight leg raise: negative O8 Drop foot: positive, right MOTOR EXAM (0-5/5, N/T Muscle appearance: Hand muscle wasting, right lower extremity muscle wasting UPPER EXTREMITY RIGHT LEFT Shoulder Abduction 5/5 5/5 Biceps 5/5 5/5 Triceps 5/5 5/5 Wrist Extension 5/5 5/5 Hand Intrnsics 5/5 5/5 Principal Android Developer 5/5 5/5 Hand and finger dexterity intact bilaterally? yes Disdiadochokinesis examination negative bilaterally? yes LOWER EXTREMITY RIGHT LEFT Hip Flexion 4/5 4/5 Knee Extension 4/5 4/5 Knee Flexion 4/5 4/5 Dorsiflexion 4/5 4/5 Plantarflexion 4/5 4/5 EHL 4/5 4/5 FHL 4/5 4/5 Toe heel walk / heel-toe walk intact while maintaining satisfactory balance?No Squatting/straightening w/o assistance to a min of 60 degree knee flexion? No Single leg stance: intact REFLEXES(0-4/2, NT)Upper Extremity Lower Extremity Right 2 1 Left 2 1 Pathological Reflexes RIGHTLEFT Huerta's Absent Absent Clonus Absent Absent Babinski Absent Absent Sensory system (0-4, N/T) Test type RU JESSENIA RL LL Joint-Position 2 2 2 2 Vibration 2 2 2 2 Pain & LT sense 2 2 2 2 Dermatomal Deficit: None None Global L3-4 L3-4, L5 Gait and Functional Evaluation: Ambulatory aids:Independent sometimes cane Romberg's test:Intact bilaterally Steady Gait RADIOGRAPHIC STUDIES: No new x-rays or imaging completed. Please see previous note. IMPRESSION: It was my pleasure to have seen and examined Ubaldo. I reviewed the patient's clinical syndrome, physical findings, and imaging studies during the appointment today. It is my impression that the patient has a diagnosis of. 1. L3-4, L5-S1 adjacent segment disease, spondylotic collapse with stenosis 2.S/P L4-S1 TLIF at OSH 3. lower extremity weakness 4. Low back pain 5. LE paresthesisa I outlined the natural course history without intervention and various interventional options. PLAN: Based on my findings I suggest the following course of action: - I discussed different nonsurgical and surgical options with the patient at length. Nonsurgical options to include therapy home therapy and massage therapy alternative medicine by chiropractics or acupuncture medications [id number] and prescription. The patient has tried a multitude of these and has not seen a significant decrease in their symptoms at this time. I did discuss multiple different surgical options for the patient including posterior lumbar decompression only posterior lumbar decompression and fusion and/or posterior lumbar decompression and fusion revision.At this point I do feel that posterior lumbar surgery is the best option for the patient in the form of a fusion. I discussed the risks and benefits of this with the patient as well as potential outcomes.The patient is comfortable with these and is willing to proceed. -I discussed treatment options with the patient, including operative and non- operative options, and they have elected to proceed with the following surgical procedure: Revision L3-Pelvis Decompression and Fusion The indications, risks, benefits, and alternatives to surgery were discussed with the patient at length. Specifically (but not limited to) the risks of infection, stiffness, recurrence of symptoms, need for revision surgery, local numbness, neurovascular injury, and blood clots were discussed. The patient's questions were answered. The decision to proceed was made. Consent will be obtained for the procedure. - Ambulate daily - Take medications as directed - Ice and rest for pain and swelling control. Spine Surgery Risk Review Mr. Russell is presenting for evaluation of lumbar pain. It was my pleasure to have seen and examined Mr. Russell. In our visit today we have had a chance to go over subjective complaints, physical examination findings and treatments including the natural course history without intervention and various interventional options. The patients imaging demonstrates: XRay Lumbar Multiview (AP, Lateral, Flexion, Extension) with AP pelvis; [facility] Lumbar Spine: postsurgical changes L4 through S1 with 2 of construct and position. There is adjacent segment disease at L3-L4 with collapse of L3 4 disc facet arthropathy and flattening of the normal lumbar lordosis secondary to this in the fusion. There are no lesions fractures or other dislocations noted. AP pelvis demonstrates congruent low pelvis no fracture MRI scancompleted atan Outside facility from03/25/2023 of LumbarSpine: MRI is reviewed with patient. This demonstrated again L3 4 adjacent segment disease with this collapsed disc height loss spondylosis facet arthropathy facet hypertrophy ligamental hypertrophy CONTRIBUTING to moderate central and bilateral foraminal stenosis. There is segmental kyphosis to due to the collapse. There is loss of lumbar lordosis. No acute fracture dislocation otherwise noted. No lesions. On physical exam, Mr. Russell demonstrates: Patient reports lumbar pain with no known injury or trauma to indicate an exact onset of their symptoms. In addition to their lumbar pain, they do report that it radiates into the bilateral lower extremities, associated with numbness and tingling through. Patient had a previous lumbar decompression and fusion on 10/26/[address] Lerma. He states his symptoms did not resolve after surgery. Patient note she has a right drop foot. Overall the patient has seen a progressive increase in symptoms since their onset. Mr. Russell symptoms are exacerbated with walking, standing, and sit to stand, due to this they notes t hat it is increasingly difficult for Mr. Russell to complete many of their daily tasks. Patient is having mild sleep disturbances as well due to their ongoing pain and associated symptoms. I have explained to the patient that as their condition progresses it will cause further neurological deficits and eventual paralysis. Based on the patients imaging, physical exam, and the rapid progression and disabling nature of their symptoms, at this time I recommend surgery in the form of a: L3-Pelvis Decompression and Fusion I discussed the risk and benefits of this procedure at length with Mr. Russell. The patient agreed to considered pursuing the procedure abovementioned. Prior to surgery, she should follow up with her PCP (Cardio, ID, IM etc) for clearance. Questions were invited and answered, and the patient wishes to proceed as outlined below. Currently, I am recommendin.Revision L3-Pelvis Decompression and Fusion 2.Follow up with PCP for surgical clearance 3.Review of surgical risks and benefits as well as an educational packet on the proposed surgical procedure. Risks: All surgical procedures come with inherent risks, including those related to positioning, anesthesia, intraoperative findings, and postoperative complications. It is important to understand that surgery does not come with any guarantee of a successful outcome as complications and adverse events are always possible. The patient was given a handout in office today discussing the surgical procedure and risks associated with the intervention, both of which were discussed with the patient. These risks include but are not limited to the following: * Experiencing same, different or even worse symptoms in back, neck, arms, or legs compared to before surgery. Requiring further surgery or other forms of treatment presently or at some time in the future at same or other levels of the intended spine surgery. On an extreme but fortunately relatively rare basis severe complication such as blindness, stroke, heart attack, temporary and/or permanent nerve injury, paralysis, coma, or may occur, sometimes without known explanation. Surgical complications may include but are not limited to risk of infect ion, fluid accumulation in the surgical dissection site, including a seroma or hematoma, that requires additional surgery, wound drainage, bleeding, new numbness or weakness, vision changes/loss, spinal fluid leakage, non-healing and/or infected incision, headaches, difficulty or inability to swallow, hoarseness, hemopneumothorax, pneumothorax, impotence, retrograde ejaculation, vaginal dryness; injury to nerves, spinal cord, blood vessels, lymphatics or other vital organs (i.e., bowel injury, injury to the great vessels); heterotopic bone formation; complications related to the hardware such as screws, rods, cages including misplaced hardware, device failure, instrumentation at the wrong spine level, hardware fracture/breakage, or hardware loosening; vertebral failure of the spinal column above or below the newly placed hardware; retained surgical instrumentations or devices and the need for further surgery. * Medical risks of the planned spine surgery include but are not limited to generalized Infections to the whole body or local areas outside of the surgical site (sepsis), heart attack, bleeding, anaphylaxis, meningitis, seizure, epilepsy, hearing loss, burn bowman, laceration of the head or other areas of the body, bruising, hypersensitivity of the skin, bladder over distension; allergic reaction; shoulder injury related to positioning; fat, blood and air clots to other areas of the body like heart, lungs, brain; failure of internal organs such as lungs, kidneys, liver and excessive bleeding. If blood transfusions are necessary, note that transfusions may cause intolerance reactions such as anaphylaxis or other complex reactions. Despite best efforts, the results of spine surgery might not heal in terms of bone, soft tissues such as skin, fascia, ligaments, and joints. Additionally, in order to achieve best possible results, spine surgery may be carried out beyond the initially planned levels and involve decompression, fusion including insertion of hardware at levels other than the original intended area of surgical interest change some portions of the procedure in order to ensure the best possible outcomes. With spine surgery and spinal fusion, there are different off label uses of instrumentation (devices, implants and hardware) as well as biological substances (bone morphogenic proteins, demineralized bone matrix) as well as using extra bone from allograft sources (i.e. cadaver bone) or autograft (iliac crest bone, ribs, or the spine itself). The patient has been given information about these practices and their inherent risks and benefits. [facility] is an educational center that serves as a training facility for neurosurgical and orthopedic PUMP MACHINE OPERATOR and Nursing students. Physician assistants are medically trained surgical providers who function in the outpatient, inpatient, and operating room setting under the direct supervision of the attending surgeon. [facility] has multiple operating rooms with single and overlapping rooms running daily. They currently function under the required guidelines as produced by the Senate Finance Committee with regards to the overlapping rooms and will continue to comply with changes to this policy as they occur. The requirements include and are complied with as follows: (1) the critical portions of the overlapping rooms will not occur at the same time, (2) the attending physician will be physically present during the critical portions of the procedure and immediately available during the entire case, and (3) a back-up attending is designated should the primary attending not be immediately available. The patient has had a chance to review all the listed information, has been given print outs detailing this information, and has had all his/her questions answered to their satisfaction. It was my pleasure to have seen and examined Mr. Russell. In our visit today we have had a chance to go over my understanding of our patient's current condition, the natural course history without intervention and various interventional options. Questions were invited and answered, and the patient wishes to proceed as outlined above. I have seen and examined the patient for 25 minutes and we have spent more than 50% of the time in repeat and detailed counseling about the patient's condition, its natural course history with out and as much as can be predicted with surgery and re-review of various surgical treatment options. In conclusion, Mr. Russell requested we proceed with the above suggested surgery and are willing to accept risks and limitations of the suggested surgery as nature of the disease process and our best attempts at treatment for the condition. Thank you again for allowing us to be part of your patient's care. Please don't hesitate to contact me if you have any further questions. Follow- up: 2 weeks PO Patient Education: (Informational booklet, instructions, etc) given at today's appointment: Yes .ED:Patient Education: Y Plan at next visit: X-ray Medications Reviewed: YES In our visit today Mr. Russell and I have had a chance to go over my understanding of the patient's current condition, the natural course history without intervention and various interventional options. Questions were invited and answered, and the patient wishes to proceed as outlined above. I will be sure to keep you updated afterMr. Russell returns here for further follow-up. Thank you again for your referral. Please do not hesitate to contact me if you have any further questions. Signed and authenticated by: Gilberto [facility] [address] [place] [address] This message is confidential, intended only for the named recipient(s) and may contain information that is privileged or exempt from disclosure under applicable law. If you are not the intended recipient(s), you are notified that the dissemination, distribution or copying of this information is strictly prohibited. If you received this message in error, please notify the sender then delete this message. # SIGNED BY Gilberto Hernadez (GOO)08/21/2023 06:14AM Past Medical History Past Medical History: Coronary Artery Disease (CAD), Diabetes Mellitus, Hyperlipidemia, Hypertension, Myocardial Infarction ([place]), Osteoarthritis (OA), Renal Disease Additional Past Medical History / Comment(s): past hx. sore on the bottom of right foot went to the wound center-no current wounds or skin issues, developed drop foot on the right & crack in L4, stage 2 kidney disease, neuropathy abbie feet Last Myocardial Infarction Date:: 2010 History of Any Multi-Drug Resistant Organisms: None Reported Past Surgical History: Back Surgery, Coronary Bypass/CABG, Heart Catheterization With Stent, Tonsillectomy Additional Past Surgical History / Comment(s): EGD, EXCISION OF ABSCESS, bone bi opsy foot 04/2021, triple bypass 2004, fusion L4-[address] Lerma in October, foot surg on right for Charcot's foot Past Anesthesia/Blood Transfusion Reactions: No Reported Reaction Date of Last Stent Placement:: 2010 Smoking Status: Current every day smoker - Past Family History Father Family Medical History: Diabetes Mellitus Mother Family Medical History: Cancer, CVA/TIA Medications and Allergies Home Medications Medication Instructions Recorded Confirmed Type Niacin [Niaspan] 1,000 mg PO DAILY 02/19/15 08/17/23 History Insulin Lispro [humaLOG Kwikpen] 34 - 50 unit SQ TID-W/MEALS 03/08/18 08/17/23 History Rosuvastatin [Crestor] 20 mg PO HS 03/08/18 08/17/23 History amLODIPine [Norvasc] 2.5 mg PO DAILY 03/08/18 08/17/23 History Enalapril [Vasotec] 10 mg PO DAILY 04/22/21 08/17/23 History Pregabalin [Lyrica] 200 mg PO TID 04/22/21 08/17/23 History Ranolazine [Ranexa] 1,000 mg PO BID 04/22/21 08/17/23 History Aspirin EC [Ecotrin Low Dose] 81 mg PO DAILY 11/02/22 08/17/23 History Insulin Glargine-Yfgn [Semglee 85 units SQ HS 11/02/22 08/17/23 History (Yfgn) Pen] Allergies Allergy/AdvReac Type Severity Reaction Status Date / Time No Known Allergies Allergy Verified 08/17/23 15:04 Physical Examination Osteopathic Statement: *. No significant issues noted on an osteopathic structural exam other than those noted in the History and Physical/Consult.
[~2023-08-21 06:30] MED LIST changes: +ACETAMINOPHEN TAB 500 MG TAB PO PRN; -ALPRAZolam 0.25 MG TAB PO PRN; -ALPRAZolam 0.5 MG TAB PO PRN; -ASPIRIN 325 MG TAB PO STA; -ATORVASTATIN 80 MG TAB PO STA; +DEXAMETHASONE SOD PHOSPHATE 4 MG/ML 1 ML VIAL IV ONE; +GABAPENTIN 300 MG CAP PO PRN; -NITROGLYCERIN SL TABS 0.4 MG TAB SUBLINGUAL PRN; +ONDANSETRON 4 MG/2 ML VIAL IVP ONE; +ONDANSETRON 4 MG/2 ML VIAL IVP PRN; -SODIUM CHLORIDE 0.9% 1,000 ML in EMPTY BAG 1 BAG IV ONE; +TRANEXAMIC 1,000 MG/100ML-NACL 1,000 MG in SALINE 1 100ML.BAG IVPB PRN
[2023-08-21] MEDS ORDERED: HYDROmorphone 0.5 MG/0.5 ML SYRINGE IVP PRN ×2 (07:00→10:00)
[2023-08-21 07:14] LABS: Glucose,Whole Blood 230 mg/dL (70-110)
[2023-08-21] MEDS ORDERED: LACTATED RINGERS 1,000 ML IV ONE ×4 (07:15→10:29)
[2023-08-21] MEDS ORDERED: MIDAZOLAM 2 MG/2 ML VIAL IVP ONE (07:32)
[2023-08-21] MEDS ORDERED: INSULIN ASPART (NovoLOG) 100 UNIT/ML VIAL SQ ONE ×2 (07:33→13:36)
[2023-08-21] MEDS ORDERED: ePHEDrine 50 MG/ML 1 ML VIAL ONE (08:06)
[2023-08-21] MEDS ORDERED: ALBUMIN HUMAN 5% (12.5gm) 250 ML BOTTLE IVPB ONE (08:06)
[2023-08-21] MEDS ORDERED: PROPOFOL 10 MG/ML 20 ML VIAL IV ONE (08:06)
[2023-08-21] MEDS ORDERED: TRANEXAMIC 1,000 MG/100ML-NACL PREMIX BAG ONE (08:06)
[2023-08-21] MEDS ORDERED: WATER FOR INJECTION, STERILE 10 ML VIAL IV ONE (08:06)
[2023-08-21] MEDS ORDERED: KETAMINE HCL IN 0.9 % NACL 50 MG/5 ML SYRINGE ONE (08:06)
[2023-08-21] MEDS ORDERED: LIDOCAINE 1% INJ 10MG/ML (20 ML MDV) ONE (08:06)
[2023-08-21] MEDS ORDERED: HYDROmorphone (PF) 1 MG/ML ONE (08:06)
[2023-08-21] MEDS ORDERED: PHENYLEPHRINE 10 MG/ML 5 ML VIAL ONE (08:06)
[2023-08-21] MEDS ORDERED: GLYCOPYRROLATE 0.2 MG/ML 2 ML VIAL ONE (08:06)
[2023-08-21] MEDS ORDERED: SUCCINYLCHOLINE CHLORIDE 200 MG/10 ML VIAL IV ONE (08:06)
[2023-08-21] MEDS ORDERED: DOPAMINE IV ONE (08:06)
[2023-08-21] MEDS ORDERED: NEOSTIGMINE 1 MG/ML 10 ML VIAL ONE (08:06)
[2023-08-21] MEDS ORDERED: ROCURONIUM 10 MG/ML (5 ML VIAL) IV ONE (08:06)
[2023-08-21] MEDS ORDERED: fentaNYL (PF) 50 MCG/ML 2 ML AMP ONE (08:06)
[2023-08-21] MEDS ORDERED: VASOPRESSIN 20 UNIT/ML 1 ML VIAL ONE (08:06)
[2023-08-21] MEDS ORDERED: SODIUM CHLORIDE 0.9% 1,000 ML BAG ONE (08:06)
[2023-08-21] MEDS ORDERED: GENTAMICIN 80 MG in SODIUM CHLORIDE 0.9% IRRIGATIO 3,000 ML IRRIGATION ONE (09:05)
[2023-08-21] MEDS ORDERED: ceFAZolin 3,000 MG in SODIUM CHLORIDE 0.9% IRRIGATIO 3,000 ML IRRIGATION ONE (09:05)
[2023-08-21] MEDS ORDERED: GELATIN SPONGE,ABSORB (LARGE) 1 EACH SPONGE TOPICAL ONE (09:20)
[2023-08-21] MEDS ORDERED: THROMBIN (BOVINE) 5,000 UNIT VIAL TOPICAL ONE (09:20)
[2023-08-21 09:45] LABS: Glucose,Whole Blood 196 mg/dL (70-110)
[2023-08-21] MEDS ORDERED: MAGNESIUM HYDROXIDE 2,400 MG/30 ML CUP PO PRN (10:00)
[2023-08-21] MEDS ORDERED: SENNOSIDES-DOCUSATE SODIUM 1 EACH TAB PO PRN (10:00)
[2023-08-21] MEDS ORDERED: HYDROmorphone 1 MG/ML 1 ML SYRINGE IVP PRN (10:00)
[2023-08-21 10:46] LABS: Glucose,Whole Blood 194 mg/dL (70-110)
[2023-08-21] MEDS ORDERED: TOBRAMYCIN SULFATE 1.2 GM VIAL MISCELLANE ONE (11:26)
[2023-08-21] MEDS ORDERED: VANCOMYCIN 1,000 MG VIAL MISCELLANE ONE (11:26)
[2023-08-21] MEDS ORDERED: DOPamine DRIP 800 MG in DEXTROSE/WATER 1 250ML.BAG IV ONE (13:22)
[2023-08-21 13:28] LABS: Glucose,Whole Blood 276 mg/dL (70-110)
--- NOTE | 2023-08-21 13:28 | FL ---
Intraoperative/procedural fluoroscopic services were provided. Total fluoroscopy time is 54 seconds w ith a total of 6 submitted images to PACS. Please see the operative/procedural note for further alex montero. DAP: 11.525 Gycm2
--- NOTE | 2023-08-21 13:42 | P.OP ---
Date of Procedure: 08/21/23 Preoperative Diagnosis: 1. 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 LE WEAKNESS, DROP FOOT 3. LE PARESTHESIAS 4. LOW BACK PAIN 5. PSEUDOARTHROSIS L4-5 Postoperative Diagnosis: 1. 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 LE WEAKNESS, DROP FOOT 3. LE PARESTHESIAS 4. LOW BACK PAIN 5. PSEUDOARTHROSIS L4-5 Procedure(s) Performed: 1. L3-4, L5-S1 POSTERIOLATERAL AND INTERBODY FUSION (27934, ) 2. REVISION POSTERIOLATERAL FUSION L4-5 (18226) 3. L3-4, L5-S1 LAMINOFORAMINOTOMY FOR NEURAL DECOMPRESSION AND CAGE PLACEMENT (66786, 55814) 4. INSTRUMENTATION L3-PELVIS (43117) 5. ATTACHMENT TO THE PELVIS (02732) 6. INSERTION OF BIOMECHANICAL DEVICE (69307J5) 7. REMOVAL OF SEGMENTAL HARDWARE L4-S1 8. EXPLORATION OF FUSION L4-S1 9. USE OF 46elks NAVIGATION FOR SCREW PLACEMENT (75284) Implants: -SHREYA EVERST SCREW AND RALPH SYSTEM -GLOBUS SABLE CAGES X2 -MAGNATOS, ALLOCELL, ARTHROCELL, VENTRIS, IFACTOR Anesthesia: GETA Surgeon: Gilberto Hernadez Estimated Blood Loss (ml): 500 IV fluids (ml): 3,500 Urine output (ml): 250 Pathology: none sent Condition: stable Disposition: PACU Indications for Procedure: Mr. Russell is presenting for evaluation of lumbar pain. It was my pleasure to have seen and examined Mr. Russell. In our visit today we have had a chance to go over subjective complaints, physical examination findings and treatments including the natural course history without intervention and various interventional options. The patients imaging demonstrates: XRay Lumbar Multiview (AP, Lateral, Flexion, Extension) with [facility] pelvis; [facility]: postsurgical changes L4 through S1 with 2 of construct and position. There is adjacent segment disease at L3-L4 with collapse of L3 4 disc facet arthropathy and flattening of the normal lumbar lordosis secondary to this in the fusion. There are no lesions fractures or other dislocations noted. AP pelvis demonstrates congruent low pelvis no fracture MRI scancompleted atan Outside facility from03/25/2023 of LumbarSpine: MRI is reviewed with patient. This demonstrated again L3 4 adjacent segment disease with this collapsed disc height loss spondylosis facet arthropathy facet hypertrophy ligamental hypertrophy CONTRIBUTING to moderate central and bilateral foraminal stenosis. There is segmental kyphosis to due to the collapse. There is loss of lumbar lordosis. No acute fracture dislocation otherwise noted. No lesions. On physical exam, Mr. Russell demonstrates: Patient reports lumbar pain with no known injury or trauma to indicate an exact onset of their symptoms. In addition to their lumbar pain, they do report that it radiates into the bilateral lower extremities, associated with numbness and tingling through. Patient had a previous lumbar decompression and fusion on 10/26/[address] Lerma. He states his symptoms did not resolve after surgery. Patient note she has a right drop foot. Overall the patient has seen a progressive increase in symptoms since their onset. Mr. Russell symptoms are exacerbated with walking, standing, and sit to stand, due to this they notes that it is increasingly difficult for Mr. Russell to complete many of their daily tasks. Patient is having mild sleep disturbances as well due to their ongoing pain and associated symptoms. I have explained to the patient that as their condition progresses it will cause further neurological deficits and eventual paralysis. Based on the patients imaging, physical exam, and the rapid progression and disabling nature of their symptoms, at this time I recommend surgery in the form of a: L3-Pelvis Decompression and Fusion I discussed the risk and benefits of this procedure at length with Mr. Russell. The patient agreed to considered pursuing the procedure abovementioned. Prior to surgery, she should follow up with her PCP (Cardio, ID, IM etc) for clearance. Questions were invited and answered, and the patient wishes to proceed as outlined below. Currently, I am recommendin.Revision L3-Pelvis Decompression and Fusion Description of Procedure: L3-PELVIS DECOMPRESSION AND FUSION The patient was seen and examined in the preoperative area. All preoperative protocols were followed. Informed consent was obtained, risks and benefits of the procedure were discussed at length. Risks including bleeding infection damage to the surrounding tissue and risk of reoperation were discussed with the patient. Risk of anesthesia up to and including was discussed with the patient. These are outlined in the risk review. They were willing to accept these risks and all the risks of surgery. The patient was given a weight-based dose of antibiotics in the form of 3 g Ancef. The patient was seen and evaluated by the anesthesia team who deemed them fit for surgery. The site was marked, the patient was willing to proceed with the procedure. The patient was transferred to the operative suite by the Department of anesthesia. They were then drifted off to sleep by the department anesthesia and GETA was performed. The patient tolerated this well. Arias catheter was placed by nursing staff, a-traumatically. Once confirmation of lines and ventilation the patient was transferred to a prone Trios spine table very carefully. The head was secured and stable. X Ray confirmed alignment. All bony prominences including wrists, elbows, axilla, chest, hips, and thighs, and feet were padded very well. Special attention was paid to the genitalia, and these were padded accordingly. SCDs were placed on bilateral lower extremities and were connected. Arms were well padded and placed at 90/90 up and out and well padded. Safety strap and tape placed on the patient. Once in position, again we confirmed good ventilation capabilities and that lines were running appropriately. The patients lumbosacral pelvic was then exposed. Hair was r emoved for incision. 1010s were placed outlining the incision site. Standard alcohol was used to clean the incision site and allowed to dry. C-arm was used to bio-yang the patient and confirm level for incision which was marked with a skin marker. Operative briefing was performed with all teams and everyone in agreement to proceed. The patient was then prepped and draped in a normal sterile fashion. Timeout was then performed, and all parties agreed with the procedure to be performed. Midline skin incision was then made over the previously bookmarked area and dissection taken down to the lumbosacral fascia which was identified and cleaned with a price. There was excessive sub-q adipose that was obtrusive and needed to be retracted as well as scar tissue from his previous surgery. Once midline was identified, fasciotomy was made over the SP of L1-S1 and pelvis. Subperiosteal dissection was then taken down over the lamina and facet joints and TPs were exposed and trough made posterolateral. TPs were then decorticated with a high speed darin for lateral fusion. Dissection was taken out over the sacrum to the pelvis. SI joint identified and modified Cummings starting point for pelvic screws identified as well. Retractors placed. Once confirmed, screws were removed from L4-S1 b/l along with rods. The L4 screws were loose b/l and when removed there was still motion at this segment. The fusion was explored and there was minimal bone formation posteriorly with continued motion at L5-S1 and L4-5. There was also increased motion at L3-4 noted. Wound was irrigated and SP clamp was then placed for the [employer] navigation tracker and secured. The wound was then filled with NSS and Z-drape. A 3D Ziehm spin was then obtained and registered. Once confirmation of accuracy screws were then placed from L2-Pelvis using navigation. Navigated high speed darin was used to make a ship pilot dispatcher hole followed by a navigated awl-tap passed through the pedicle into the body. A ball tip probe then confirmed within the pedicle. Screw was then measured and placed using a navigated screwdriver. After screws were placed from L3-S1, AP image confirmed safe placement of screws. Lateral images as well as navigation were then used to place bilateral pelvic screws. Starting point selected just lateral to the SI joint and S2 pseudo facet. Lateral image taken and darin used to make the ship pilot dispatcher hole. Gearshift then used to pass into the pelvis under lateral imaging just above the sciatic notch. 30 deg/30deg iliac oblique then taken to confirm within the teardrop and ball tip probe used to probe good bone. Screw was then measured and selected and placed under lateral imaging. This was repeated on the contralateral side. Screws were then visualized and appeared safe. A second [facility] spin was obtained and confirmed safe screw placement. Only partial pelvis was viewed in this spin due to the patient's body habitus. Screws were then tested, and reliably tested screws tested above 20 mA. There was an issue with IONM that precluded all screws from being successfully tested at the time. We then proceeded to decompression and interbody placement. Starting at L5-S1, bilateral laminectomy, complete facetectomy and foraminotomies were performed using high speed bur, Kerrison rongeur. There was exuberant bone formation, osteophytes and scar tissue surrounding these joints as well as the dura. Once exposed the neural elements were protected and an intradiscal osteotomy, 3 column, was performed for deformity correction at L5- S1. Osteotome was used to make osteotomy in L5 and S1 and for complete disc removal. A box osteotome was then used to widen this bilaterally. This was passed into the anterior 1/3 of L5. This allowed for loosening of this level and correction. A cage was then selected based on shaving and trials. Bleeding endplates were encountered and cartilage removed. Autograft, allograft were then placed anterior to the cage. The cage was then impacted into place under lateral imaging while protecting neural elements. The cage was then expanded into position and showed good lift and correction. Yazidi of lordosis and height achieved. Meticulous hemostasis then performed. Cage was backfilled with DBM and the area irrigated. We then proceeded to L4-5 which already has a cage but we explored the area and check the decompression.. At L3-4, bilateral laminectomy, complete facetectomy and foraminotomy was performed as described above. Again, exuberant scar tissue and bone formation was encountered and at this level specifically around the pars due to the defect and slip in this area. There was also a large disc osteophyte complex that was identified once disc space was found. The dura was carefully dissected off this anteriorly and b/l. Once encountered, the disc space was then accessed in a similar fashion and neural elements protected. Intradiscal, 3 column osteotomies, for deformity correction was then performed again at this level as described above. Once completed and complete discectomy performed there was good mobility at this level. Cage was then sized and selected. Autograft and allograft was then placed anterior in the disc space and the cage was then inserted and impacted into place under lateral. AP image, as before, was taken to ensure midline placement. The cage was then expanded into position. The cage was tested and was very stable and since it was in safe position without any other issues it was elected to keep the cage in position. The wound was irrigated. Meticulous hemostasis then performed. Attention was then drawn to ralph placement. Rods were selected, measured, cut and bent to appropriate lordosis. They were then secured into pelvic screws b/l. Sequential reduction then done into each screw and set screw placed. Set screws were then final tightened and lateral image showed good lordosis reduction with increase around 10 deg from starting. Once rods were secured, cross links were selected and placed and final tightened. The wound was then irrigated with 3L Ancef irrigation, 3L gentamicin irrigation and 3L NSS. Surgicel was then placed on the dura, which was inspected and had no injury. Then, in the posterolateral gutter was placed, MagnatOs, Autograft and allograft. This was impacted into position and surgical placed over it. 2g Vanco powder was then placed deep in the wound. A deep, subfascial drain was placed and a superficial facial drain placed. We then proceeded with layered closure. #1 PDS placed in the deep fascia. 0 Vicryl placed in the deep subq, 2-0 placed in the superficial subq and tim placed in the skin. The wound edges approximated very well. The wound was then cleaned with ETOH and dressed with optifoam dressing, drain sponges and tegaderms. Drains sewed into position. IONM confirmed no changes. The patient was then transferred off the [facility] spine table to their hospital bed a-traumatically. Drains continued to hold suction. The patient was then extubated and transferred to the ICU in stable condition having tolerated the procedure with no complications.
[2023-08-21] MEDS ORDERED: SODIUM CHLORIDE 0.9% 1,000 ML IV ONE (14:04)
[2023-08-21] MEDS ORDERED: ALBUTEROL NEBULIZED 2.5 MG/3 ML INHALATION ONE (14:07)
[2023-08-21 14:54] LABS: African American GFR (CKD) 68 (>60 ml/min/1.73 sqM); Anion Gap 8 mmol/L; Blood Urea Nitrogen 22 mg/dL (9-20); Calcium 7.6 mg/dL (8.4-10.2); Carbon Dioxide 20 mmol/L (22-30); Chloride 110 mmol/L (98-107); Glucose 241 mg/dL (74-99); Non-African American GFR(CKD) 58 (>60 ml/min/1.73 sqM); Potassium 4.9 mmol/L (3.5-5.1); Sodium 138 mmol/L (137-145)
[2023-08-21 14:55] LABS: African American GFR (CKD) 69 (>60 ml/min/1.73 sqM); Blood Urea Nitrogen 22 mg/dL (9-20); Non-African American GFR(CKD) 59 (>60 ml/min/1.73 sqM)
[2023-08-21 15:08] LABS: HCT 32.3 % (39.0-53.0); HGB 11.2 gm/dL (13.0-17.5); MCH 34.5 pg (25.0-35.0); MCHC 34.6 g/dL (31.0-37.0); MCV 99.8 fL (80.0-100.0); Mean Platelet Volume 7.5; Platelet Count 182 k/uL (150-450); RBC 3.24 m/uL (4.30-5.90); WBC 10.7 k/uL (3.8-10.6)
[2023-08-21 15:21] LABS: Glucose,Whole Blood 244 mg/dL (70-110)
[2023-08-21] MEDS ORDERED: NALOXONE 0.4 MG/ML 1 ML VIAL IV PRN (15:51)
[2023-08-21] MEDS: ACETAMINOPHEN TAB 325 MG TAB PO SCH ×2 (16:00→18:23)
[2023-08-21] MEDS: INSULIN ASPART (NovoLOG) 100 UNIT/ML VIAL SQ SCH ×5 (16:01→20:07)
[2023-08-21] MEDS: NOREPINEPHRINE 4 MG in SODIUM CHLORIDE 0.9% 250 ML IV SCH (17:12)
[2023-08-21] MEDS: HYDROcodone/APAP 10-325MG 1 EACH TAB PO PRN ×2 (17:14→23:27)
[2023-08-21 17:20] LABS: Glucose,Whole Blood 228 mg/dL (70-110)
[2023-08-21] MEDS: LACTATED RINGERS 1,000 ML IV SCH (17:25)
[2023-08-21] MEDS: INSULIN DETEMIR (LEVEMIR) 100 UNIT/ML SYR SQ SCH (20:07)
[2023-08-21 20:08] LABS: Glucose,Whole Blood 231 mg/dL (70-110)
--- NOTE | 2023-08-21 22:50 | CT ---
EXAMINATION TYPE: CT lumbar spine wo con DATE OF EXAM: 08/21/2023 COMPARISON: None HISTORY: post-op CT DLP: 2078.6 mGycm Automated exposure control for dose reduction was used. Contrast: None Technique: Axial images 3 mm thick sections. Reconstructed images in the coronal and sagittal planes. FINDINGS: Pedicle screws are present at L3-S1. Beam hardening artifact is present at these levels. Disc spaces are present L3-4, L4-5, L5-S1. Laminectomies been performed through these levels. No spinal canal aileen nosis is evident. Neural foramen appear patent. Vertebral body heights are preserved. Remaining disc heights appear preserved. IMPRESSION: 1. POSTSURGICAL CHANGES L3-S1.
[2023-08-22] MEDS: CYCLOBENZAPRINE 5 MG TAB PO PRN ×2 (00:37→08:59)
[2023-08-22] MEDS: ACETAMINOPHEN TAB 325 MG TAB PO SCH ×4 (00:37→16:55)
[2023-08-22] MEDS: INSULIN ASPART (NovoLOG) 100 UNIT/ML VIAL SQ SCH ×4 (06:08→21:08)
[2023-08-22 06:09] LABS: Glucose,Whole Blood 167 mg/dL (70-110)
[2023-08-22] MEDS: HYDROcodone/APAP 10-325MG 1 EACH TAB PO PRN ×4 (06:09→21:09)
[2023-08-22 06:10] LABS: Basophils % (A) 0 %; Eosinophils # (A) 0.1 k/uL (0-0.7); Eosinophils % (A) 1 %; HCT 32.1 % (39.0-53.0); HGB 11.1 gm/dL (13.0-17.5); Lymphocytes # (A) 0.9 k/uL (1.0-4.8); Lymphocytes % (A) 10 %; MCH 34.5 pg (25.0-35.0); MCHC 34.7 g/dL (31.0-37.0); MCV 99.5 fL (80.0-100.0); Mean Platelet Volume 7.4; Monocytes # (A) 0.7 k/uL (0-1.0); Monocytes % (A) 7 %; Neutrophils # (A) 7.3 k/uL (1.3-7.7); Neutrophils % (A) 81 %; Platelet Count 178 k/uL (150-450); RBC 3.23 m/uL (4.30-5.90); RDW 12.9 % (11.5-15.5); WBC 9.1 k/uL (3.8-10.6)
[2023-08-22 06:22] LABS: African American GFR (CKD) >90 (>60 ml/min/1.73 sqM); Anion Gap 11 mmol/L; Blood Urea Nitrogen 20 mg/dL (9-20); Calcium 8.3 mg/dL (8.4-10.2); Carbon Dioxide 21 mmol/L (22-30); Chloride 104 mmol/L (98-107); Glucose 139 mg/dL (74-99); Magnesium 1.3 mg/dL (1.6-2.3); Non-African American GFR(CKD) 82 (>60 ml/min/1.73 sqM); Sodium 136 mmol/L (137-145)
[2023-08-22] MEDS ORDERED: Magnesium Replacement Protocol 1 EACH MISC MISCELLANE PRN (06:27)
[2023-08-22] MEDS: MAGNESIUM SULFATE-D5W PMX 1 GM in DEXTROSE/WATER 1 100ML.BAG IVPB SCH ×4 (06:37→10:43)
[2023-08-22] MEDS: LACTATED RINGERS 1,000 ML IV SCH (06:42)
--- NOTE | 2023-08-22 07:17 | XR ---
EXAMINATION TYPE: XR chest 1V DATE OF EXAM: 08/22/2023 5:38 AM COMPARISON: None TECHNIQUE: XR chest 1V Frontal view of the chest. CLINICAL INDICATION:Male, 58 years old with history of post op; FINDINGS: Lungs/Pleura: There is no evidence of pleural effusion, focal consolidation, or pneumothorax. Pulmonary vascularity: Mild pulmonary vascular congestion. Heart/mediastinum: Cardiomediastinal silhouette is enlarged. Post-CABG changes. Musculoskeletal: No acute osseous pathology. Midline sternotomy wires are noted. IMPRESSION: Post-CABG changes with mild pulmonary vascular congestion.
--- NOTE | 2023-08-22 07:22 | P.PN ---
Subjective Progress Note Date: 08/22/23 Principal diagnosis: 1. L3-4, L5-S1 adjacent segment disease, spondylotic collapse with stenosis 2.S/P L4-S1 TLIF at OSH 3. lower extremity weakness 4. Low back pain 5. LE paresthesisa Patient seen and examined this morning. Patient is resting comfortably in bed. He does report an aching low back pain, medications will be adjusted. Surgical incision to the lumbar spine with Hemovac present, 230ml output overnight. Patient is able to perform some bed exercises. He does report continued weakness in the right lower extremity. Patient is looking forward to working with physical therapy. Encouraged patient to be up in chair for all meals. Obando catheter may be removed once patient is up and about. Encouraged patient to use incentive spirometer, patient is currently on 4 L nasal cannula. No acute concerns at this time. Objective - Vital Signs Vital signs: Vital Signs Temp 98.2 F 08/22/23 04:00 Pulse 102 H 08/22/23 07:00 Resp 14 08/22/23 07:00 BP 139/78 08/22/23 07:00 Pulse Ox 97 08/22/23 07:00 FiO2 60 08/21/23 15:30 Intake & Output 08/21/23 08/22/23 08/22/23 18:59 06:59 18:59 Intake Total 4342 490 Output Total 790 1525 Balance 3552 -1035 Weight 119.6 kg Intake: IV 4092 290 Lactated Ringers 1,000 ml 40 240 @ 20 mls/hr IV .Q24H [facility] Rx#:[id number] ceFAZolin 2 gm In Sodium 50 Chloride 0.9% 50 ml @ 100 mls/hr IVPB ONCE PRN Rx# :[id number] Oral 250 200 Output: Drainage 330 Right Lower Back 330 Urine 265 1195 Estimated Blood Loss 525 Other: Voiding Method Indwelling Catheter Indwelling Catheter ABP, PAP, CO, CI - Last Documented Arterial Blood Pressure 171/149 - Exam Physical Examination General: The patient is awake and alert, in no acute distress Skin: Skin is warm and dry with no obvious rashes or lesions. Surgical incision to the lumbar spine with Hemovac present, 310ml output overnight Eye: Pupils are equal, round and reactive to light, extra-ocular movements are intact; there is normal conjunctiva bilaterally. Neck: The neck is supple, there is no tenderness and ROM intact. Cardiovascular: There is a regular rate and rhythm. No murmur, rub or gallop is appreciated. Respiratory: Lungs are clear to auscultation, respirations are non-labored, breath sounds are equal. Gastrointestinal: Soft, non-distended, non-tender abdomen. Back: There is no tenderness to palpation in the midline, paralumbar, par athoracic or buttocks region. There is no obvious deformity . Musculoskeletal: ROM limited secondary to pain and stiffness from surgical procedure. Muscle strength in all major muscle groups of bilateral upper extremities 5/5, right lower extremity 4-/5, left lower extremity 4/5. Neurological: CN 2-12 intact. There are no obvious motor or sensory deficits. Movement and coordination equal and intact. Sensory exam to light touch intact C5-T1 and intact from L2-S1. Reflexes 2/4 in bilateral upper and lower extremities. Negative Hoffmans, babinski, and clonus signs. Psychiatric: Cooperative, appropriate mood & affect, normal judgment. - Labs CBC & Chem 7: 08/22/23 05:35 08/22/23 05:35 Labs: Abnormal Lab Results - Last 24 Hours (Table) 08/21/23 08/21/23 08/21/23 Range/Units 09:43 10:44 13:27 WBC (3.8-10.6) k/uL RBC (4.30-5.90) m/uL Hgb (13.0-17.5) gm/dL Hct (39.0-53.0) % Lymphocytes # (1.0-4.8) k/uL Sodium (137-145) mmol/L Chloride (98-107) mmol/L Carbon Dioxide (22-30) mmol/L BUN (9-20) mg/dL Creatinine (0.66-1.25) mg/dL Glucose (74-99) mg/dL POC Glucose (mg/dL) 196 H 194 H 276 H (70-110) mg/dL Calcium (8.4-10.2) mg/dL Magnesium (1.6-2.3) mg/dL 08/21/23 08/21/23 08/21/23 Range/Units 14:22 14:22 14:22 WBC 10.7 H (3.8-10.6) k/uL RBC 3.24 L (4.30-5.90) m/uL Hgb 11.2 L (13.0-17.5) gm/dL Hct 32.3 L (39.0-53.0) % Lymphocytes # (1.0-4.8) k/uL Sodium (137-145) mmol/L Chloride 110 H (98-107) mmol/L Carbon Dioxide 20 L (22-30) mmol/L BUN 22 H 22 H (9-20) mg/dL Creatinine 1.34 H 1.32 H (0.66-1.25) mg/dL Glucose 241 H (74-99) mg/dL POC Glucose (mg/dL) (70-110) mg/dL Calcium 7.6 L (8.4-10.2) mg/dL Magnesium (1.6-2.3) mg/dL 08/21/23 08/21/23 08/21/23 Range/Units 15:19 17:18 20:07 WBC (3.8-10.6) k/uL RBC (4.30-5.90) m/uL Hgb (13.0-17.5) gm/dL Hct (39.0-53.0) % Lymphocytes # (1.0-4.8) k/uL Sodium (137-145) mmol/L Chloride (98-107) mmol/L Carbon Dioxide (22-30) mmol/L BUN (9-20) mg/dL Creatinine (0.66-1.25) mg/dL Glucose (74-99) mg/dL POC Glucose (mg/dL) 244 H 228 H 231 H (70-110) mg/dL Calcium (8.4-10.2) mg/dL Magnesium (1.6-2.3) mg/dL 08/22/23 08/22/23 08/22/23 Range/Units 05:35 05:35 06:07 WBC (3.8-10.6) k/uL RBC 3.23 L (4.30-5.90) m/uL Hgb 11.1 L (13.0-17.5) gm/dL Hct 32.1 L (39.0-53.0) % Lymphocytes # 0.9 L (1.0-4.8) k/uL Sodium 136 L (137-145) mmol/L Chloride (98-107) mmol/L Carbon Dioxide 21 L (22-30) mmol/L BUN (9-20) mg/dL Creatinine (0.66-1.25) mg/dL Glucose 139 H (74-99) mg/dL POC Glucose (mg/dL) 167 H (70-110) mg/dL Calcium 8.3 L (8.4-10.2) mg/dL Magnesium 1.3 L (1.6-2.3) mg/dL Assessment and Plan Assessment: Postop day 1: Revision [id number] decompression and fusion 1. L3-4, L5-S1 adjacent segment disease, spondylotic collapse with stenosis 2.S/P L4-S1 TLIF at OSH 3. lower extremity weakness 4. Low back pain 5. LE paresthesisa Plan: -Appreciate golf tournament consultant and team management. -Activity: Ambulate QID, OOB all meals, up and about, limit lifting bending twisting to less than 5 lbs. Use walker or cane if needed for stability. -Daily PT/OT, increase ambulation strength and balance. -Brace when up and about, not needed in bed or chair -Pain control: Adequate at this time -Meds: reviewed -GI ppx: senna, Miralax -DC obando when up and about, bedside commode if needed -DVT PPX: OK to restart Heparin tonight -Hygiene: Shower today. Maintain dressing clean and dry. Meticulous cleaning after BMs away from the incision site -Drains: Maintain for now. Continue to monitor and record output q shift. -Encourage IS 10x/hr -Dispo: Clinically pending *I reviewed and discussed this case with my attending Dr. Hernadez, whom has reviewed this chart and films and is in agreement with assessment and plan of care as outlined above. I have personally seen and examined the patient, performed the documentation and the assessment and plan as written. Number of minutes spent on the visit: 10m.
[2023-08-22] MEDS: NOREPINEPHRINE 4 MG in SODIUM CHLORIDE 0.9% 250 ML IV SCH ×2 (07:34→14:09)
--- NOTE | 2023-08-22 08:28 | P.CONS ---
History of Present Illness - Reason for Consult Consult date: 08/22/23 medical management - History of Present Illness This is a 58-year-old male who is postop day #1 from spinal surgery with Dr. Hernadez. He does have a history of a prior spinal surgery. Also with a history of diabetes, hyperlipidemia, and hypertension. Patient underwent a L3-4, L5-S1 posteriolateral and interbody fusion, revision posterior lateral fusion L4-5, and L3-4, L5-S1 laminoforaminotomy for neural decompression and cage placement yesterday. Patient is seen sitting up in bed in ICU this morning. He does report some pain this morning. He is tolerating diet. He reports he is using the incentive spirometer. Plan for today is increasing movement. Review of Systems Constitutional: Denies chills, Denies fever Cardiovascular: Denies chest pain, Denies dyspnea on exertion Gastrointestinal: Denies nausea, Denies vomiting Musculoskeletal: Reports low back pain, Denies arm numbness/tingling, Denies leg numbness/tingling Neurological: Denies headaches, Denies weakness Past Medical History Past Medical History: Coronary Artery Disease (CAD), Diabetes Mellitus, Hyperlipidemia, Hypertension, Myocardial Infarction ([place]), Osteoarthritis (OA), Renal Disease Additional Past Medical History / Comment(s): past hx. sore on the bottom of right foot went to the wound center-no current wounds or skin issues, developed drop foot on the right & crack in L4, stage 2 kidney disease, neuropathy abbie feet Last Myocardial Infarction Date:: 2010 History of Any Multi-Drug Resistant Organisms: None Reported Past Surgical History: Back Surgery, Coronary Bypass/CABG, Heart Catheterization With Stent, Tonsillectomy Additional Past Surgical History / Comment(s): EGD, EXCISION OF ABSCESS, bone biopsy foot 04/2021, triple bypass 2004, fusion L4-[address] Lerma in October, foot surg on right for Charcot's foot Past Anesthesia/Blood Transfusion Reactions: No Reported Reaction Date of Last Stent Placement:: 2010 Smoking Status: Current every day smoker - Past Family History Father Family Medical History: Diabetes Mellitus Mother Family Medical History: Cancer, CVA/TIA Medications and Allergies Home Medications Medication Instructions Recorded Confirmed Type Niacin [Niaspan] 1,000 mg PO DAILY 02/19/15 08/17/23 History Insulin Lispro [humaLOG Kwikpen] 34 - 50 unit SQ TID-W/MEALS 03/08/18 08/17/23 History Rosuvastatin [Crestor] 20 mg PO HS 03/08/18 08/17/23 History amLODIPine [Norvasc] 2.5 mg PO DAILY 03/08/18 08/17/23 History Enalapril [Vasotec] 10 mg PO DAILY 04/22/21 08/17/23 History Pregabalin [Lyrica] 200 mg PO TID 04/22/21 08/17/23 History Ranolazine [Ranexa] 1,000 mg PO BID 04/22/21 08/17/23 History Aspirin EC [Ecotrin Low Dose] 81 mg PO DAILY 11/02/22 08/17/23 History Insulin Glargine-Yfgn [Semglee 85 units SQ HS 11/02/22 08/17/23 History (Yfgn) Pen] Allergies Allergy/AdvReac Type Severity Reaction Status Date / Time No Known Allergies Allergy Verified 08/17/23 15:04 Physical Exam Vitals: Vital Signs Temp Pulse Pulse Resp BP BP Pulse Ox 08/22/23 07:50 95 08/22/23 07:00 102 H 14 139/78 97 08/22/23 06:00 103 H 18 156/82 96 08/22/23 05:00 105 H 11 L 118/74 96 08/22/23 04:00 98.2 F 99 18 159/76 96 08/22/23 03:00 98 12 156/77 98 08/22/23 02:00 98 15 142/76 96 08/22/23 01:00 93 12 106/59 99 08/22/23 00:00 98.2 F 96 22 132/76 96 08/21/23 23:00 101 H 18 129/53 98 08/21/23 22:00 92 16 110/77 95 08/21/23 21:00 96 12 129/61 97 08/21/23 20:00 98.2 F 92 19 115/55 96 08/21/23 19:00 91 15 113/64 98 08/21/23 18:30 93 14 121/63 98 08/21/23 18:00 125/57 08/21/23 17:30 98 14 111/75 98 08/21/23 17:00 100 12 102/61 98 11/06/23 16:30 96 13 110/61 97 08/21/23 16:00 92 15 97/56 100 08/21/23 15:45 90 14 102/57 100 08/21/23 15:30 97.1 F L 92 12 91/53 100 08/21/23 15:21 08/21/23 14:51 08/21/23 14:45 102 H 18 95/60 100 08/21/23 14:35 115/60 08/21/23 14:30 98 18 92/58 100 08/21/23 14:24 08/21/23 14:15 98 20 103/59 100 08/21/23 14:12 08/21/23 14:00 104 H 20 99/54 100 08/21/23 13:45 104 H 16 94/57 100 08/21/23 13:30 101 H 16 100/55 100 08/21/23 13:22 97.4 F L 99 14 98/54 97 FiO2 08/22/23 07:50 08/22/23 07:00 08/22/23 06:00 08/22/23 05:00 08/22/23 04:00 08/22/23 03:00 08/22/23 02:00 08/22/23 01:00 08/22/23 00:00 08/21/23 23:00 08/21/23 22:00 08/21/23 21:00 08/21/23 20:00 08/21/23 19:00 08/21/23 18:30 08/21/23 18:00 08/21/23 17:30 08/21/23 17:00 08/21/23 16:30 08/21/23 16:00 08/21/23 15:45 08/21/23 15:30 60 08/21/23 15:21 60 08/21/23 14:51 60 08/21/23 14:45 08/21/23 14:35 08/21/23 14:30 08/21/23 14:24 60 08/21/23 14:15 08/21/23 14:12 100 08/21/23 14:00 08/21/23 13:45 08/21/23 13:30 08/21/23 13:22 Intake and Output 08/21/23 08/22/23 08/22/23 22:59 06:59 14:59 Intake Total 370 410 Output Total 890 825 Balance -520 -415 Intake: IV 120 210 Lactated Ringers 1,000 ml 120 160 @ 20 mls/hr IV .Q[facility]H [facility] Rx#:[id number] ceFAZolin 2 gm In Sodium 50 Chloride 0.9% 50 ml @ 100 mls/hr IVPB ONCE PRN Rx# :[id number] Oral 250 200 Output: Drainage 220 110 Right Lower Back 220 110 Urine 645 715 Estimated Blood Loss 25 Other: Voiding Method Indwelling Catheter Indwelling Catheter Weight 119.6 kg - Constitutional General appearance: cooperative, no acute distress - EENT Eyes: PERRLA - Neck Neck: no lymphadenopathy, normal ROM, no rigidity - Respiratory Respiratory: bilateral: CTA - Cardiovascular Rhythm: regular Heart sounds: normal: S1, S2 - Gastrointestinal General gastrointestinal: soft, no tenderness - Integumentary Integumentary: normal, normal turgor - Psychiatric Psychiatric: A&O x's 3, appropriate affect, intact judgment & insight Results CBC & Chem 7: 08/22/23 05:35 08/22/23 05:35 Labs: Abnormal Lab Results - Last 24 Hours (Table) 08/21/23 08/21/23 08/21/23 Range/Units 09:43 10:44 13:27 WBC (3.8-10.6) k/uL RBC (4.30-5.90) m/uL Hgb (13.0-17.5) gm/dL Hct (39.0-53.0) % Lymphocytes # (1.0-4.8) k/uL Sodium (137-145) mmol/L Chloride (98-107) mmol/L Carbon Dioxide (22-30) mmol/L BUN (9-20) mg/dL Creatinine (0.66-1.25) mg/dL Glucose (74-99) mg/dL POC Glucose (mg/dL) 196 H 194 H 276 H (70-110) mg/dL Calcium (8.4-10.2) mg/dL Magnesium (1.6-2.3) mg/dL 08/21/23 08/21/23 08/21/23 Range/Units 14:22 14:22 14:22 WBC 10.7 H (3.8-10.6) k/uL RBC 3.24 L (4.30-5.90) m/uL Hgb 11.2 L (13.0-17.5) gm/dL Hct 32.3 L (39.0-53.0) % Lymphocytes # (1.0-4.8) k/uL Sodium (137-145) mmol/L Chloride 110 H (98-107) mmol/L Carbon Dioxide 20 L (22-30) mmol/L BUN 22 H 22 H (9-20) mg/dL Creatinine 1.34 H 1.32 H (0.66-1.25) mg/dL Glucose 241 H (74-99) mg/dL POC Glucose (mg/dL) (70-110) mg/dL Calcium 7.6 L (8.4-10.2) mg/dL Magnesium (1.6-2.3) mg/dL 08/21/23 08/21/23 08/21/23 Range/Units 15:19 17:18 20:07 WBC (3.8-10.6) k/uL RBC (4.30-5.90) m/uL Hgb (13.0-17.5) gm/dL Hct (39.0-53.0) % Lymphocytes # (1.0-4.8) k/uL Sodium (137-145) mmol/L Chloride (98-107) mmol/L Carbon Dioxide (22-30) mmol/L BUN (9-20) mg/dL Creatinine (0.66-1.25) mg/dL Glucose (74-99) mg/dL POC Glucose (mg/dL) 244 H 228 H 231 H (70-110) mg/dL Calcium (8.4-10.2) mg/dL Magnesium (1.6-2.3) mg/dL 08/22/23 08/22/23 08/22/23 Range/Units 05:35 05:35 06:07 WBC (3.8-10.6) k/uL RBC 3.23 L (4.30-5.90) m/uL Hgb 11.1 L (13.0-17.5) gm/dL Hct 32.1 L (39.0-53.0) % Lymphocytes # 0.9 L (1.0-4.8) k/uL Sodium 136 L (137-145) mmol/L Chloride (98-107) mmol/L Carbon Dioxide 21 L (22-30) mmol/L BUN (9-20) mg/dL Creatinine (0.66-1.25) mg/dL Glucose 139 H (74-99) mg/dL POC Glucose (mg/dL) 167 H (70-110) mg/dL Calcium 8.3 L (8.4-10.2) mg/dL Magnesium 1.3 L (1.6-2.3) mg/dL Assessment and Plan (1) H/O lumbosacral spine surgery Current Visit: Yes Status: Acute Code(s): Z98.890 - OTHER SPECIFIED POSTPROCEDURAL STATES SNOMED Code(s): 638599418 (2) DDD (degenerative disc disease), lumbar Current Visit: Yes Status: Acute Code(s): M51.36 - OTHER INTERVERTEBRAL DISC DEGENERATION, LUMBAR REGION SNOMED Code(s): 39938781 (3) Lower extremity weakness Current Visit: Yes Status: Acute Code(s): R29.898 - OTH SYMPTOMS AND SIGNS INVOLVING THE MUSCULOSKELETAL SYSTEM SNOMED Code(s): 033314711 (4) CAD (coronary artery disease) Current Visit: No Status: Acute Code(s): I25.10 - ATHSCL HEART DISEASE OF [place] CORONARY ARTERY W/O ANG PCTRS SNOMED Code(s): 89038439 (5) Hyperlipidemia Current Visit: No Status: Acute Code(s): E78.5 - HYPERLIPIDEMIA, UNSPECIFIED SNOMED Code(s): 00335185 (6) Diabetes Current Visit: No Status: Inactive Code(s): E11.9 - TYPE 2 DIABETES MELLITUS WITHOUT COMPLICATIONS SNOMED Code(s): 56157126 (7) Hypertension Current Visit: Yes Status: Acute Code(s): I10 - ESSENTIAL (PRIMARY) HYPER TENSION SNOMED Code(s): 09245741 Plan: Home medications reconciled. Will give decreased dose of home insulin until patient is eating regularly. Encourage incentive spirometry. Continue to follow postop instructions from surgeon. Patient seen and evaluated by nurse practitioner, physician in agreement with plan
[2023-08-22] MEDS: lisinopriL 20 MG TAB PO SCH (08:56)
[2023-08-22] MEDS: PREGABALIN 100 MG CAP PO SCH ×3 (08:56→21:07)
[2023-08-22] MEDS: NIACIN TR 500 MG CAPLET PO SCH (08:57)
[2023-08-22] MEDS: amLODIPine 2.5 MG TAB PO SCH (08:58)
[2023-08-22] MEDS: RANOLAZINE 500 MG TAB.ER.12H PO SCH ×2 (08:59→21:08)
--- NOTE | 2023-08-22 10:41 | P.CNPUL ---
History of Present Illness Consult date: 08/22/23 Requesting physician: Gilberto Hernadez Reason for consult: hypoxemia, other Chief complaint: Mental status changes, respiratory acidosis. History of present illness: Pulmonary consult dated 08/22/2023. This is a 58-year-old male who underwent an extensive tobacco procedure on August 21. After surgery, the patient was found to be poorly responsive, and a blood gas revealed respiratory acidosis. The patient was placed on dopamine for blood pressure support, and, placed on BiPAP. The patient was transferred to the intensive care unit for further monitoring and management. Today, he seen in room 252. Today's postop day #1. Currently on room air. He did not use of BiPAP last night. He is getting lactated Ringer's at 20 mL an hour. He's no longer on dopamine. In fact, the patient is stable for transfer out of the intensive care unit. White count is 9.1, hemoglobin 11.1, hematocrit 32.1, and platelet count 178,000. Sodium 136, potassium 4, chlorides 104, CO2 21, BUN 20, creatinine 1.01. Chest x-ray shows some very mild pulmonary vascular changes. Review of Systems REVIEW OF SYSTEMS: CONSTITUTIONAL: [Negative.] NEUROLOGIC: [ Negative.] HEENT: [ Negative.] CARDIAC: [Negative.] PULMONARY: [Negative.] GI: [Negative.] : [Negative.] RHEUMATOLOGIC: [ Negative.] IMMUNOLOGIC: [ Negative.] ENDOCRINE: [Negative. ] DERMATOLOGIC: [Negative.] Past Medical History Past Medical History: Coronary Artery Disease (CAD), Diabetes Mellitus, Hyperlipidemia, Hypertension, Myocardial Infarction ([place]), Osteoarthritis (OA), Renal Disease Additional Past Medical History / Comment(s): past hx. sore on the bottom of right foot went to the wound center-no current wounds or skin issues, developed drop foot on the right & crack in L4, stage 2 kidney disease, neuropathy abbie feet Last Myocardial Infarction Date:: 2010 History of Any Multi-Drug Resistant Organisms: None Reported Past Surgical History: Back Surgery, Coronary Bypass/CABG, Heart Catheterization With Stent, Tonsillectomy Additional Past Surgical History / Comment(s): EGD, EXCISION OF ABSCESS, bone biopsy foot 04/2021, triple bypass 2004, fusion L4-[address] Lerma in October, foot surg on right for Charcot's foot Past Anesthesia/Blood Transfusion Reactions: No Reported Reaction Date of Last Stent Placement:: 2010 Smoking Status: Current every day smoker - Past Family History Father Family Medical History: Diabetes Mellitus Mother Family Medical History: Cancer, CVA/TIA Medications and Allergies Home Medications Medication Instructions Recorded Confirmed Type Niacin [Niaspan] 1,000 mg PO DAILY 02/19/15 08/17/23 History Insulin Lispro [humaLOG Kwikpen] 34 - 50 unit SQ TID-W/MEALS 03/08/18 08/17/23 History Rosuvastatin [Crestor] 20 mg PO HS 03/08/18 08/17/23 History amLODIPine [Norvasc] 2.5 mg PO DAILY 03/08/18 08/17/23 History Enalapril [Vasotec] 10 mg PO DAILY 04/22/21 08/17/23 History Pregabalin [Lyrica] 200 mg PO TID 04/22/21 08/17/23 History Ranolazine [Ranexa] 1,000 mg PO BID 04/22/21 08/17/23 History Aspirin EC [Ecotrin Low Dose] 81 mg PO DAILY 11/02/22 08/17/23 History Insulin Glargine-Yfgn [Semglee 85 units SQ HS 11/02/22 08/17/23 History (Yfgn) Pen] Allergies Allergy/AdvReac Type Severity Reaction Status Date / Time No Known Allergies Allergy Verified 08/17/23 15:04 Physical Exam Osteopathic Statement: *. No significant issues noted on an osteopathic structural exam other than those noted in the History and Physical/Consult. Vitals: Vital Signs Temp Pulse Pulse Resp BP BP Pulse Ox 08/22/23 09:00 94 11 L 154/71 93 L 08/22/23 08:00 98.2 F 108 H 12 135/70 96 08/22/23 07:50 95 08/22/23 07:00 102 H 14 139/78 97 08/22/23 06:00 103 H 18 156/82 96 08/22/23 05:00 105 H 11 L 118/74 96 08/22/23 04:00 98.2 F 99 18 159/76 96 08/22/23 03:00 98 12 156/77 98 08/22/23 02:00 98 15 142/76 96 08/22/23 01:00 93 12 106/59 99 08/22/23 00:00 98.2 F 96 22 132/76 96 08/21/23 23:00 101 H 18 129/53 98 08/21/23 22:00 92 16 110/77 95 08/21/23 21:00 96 12 129/61 97 08/21/23 20:00 98.2 F 92 19 115/55 96 08/21/23 19:00 91 15 113/64 98 08/21/23 18:30 93 14 121/63 98 08/21/23 18:00 125/57 08/21/23 17:30 98 14 111/75 98 08/21/23 17:00 100 12 102/61 98 08/21/23 16:30 96 13 110/61 97 08/21/23 16:00 92 15 97/56 100 08/21/23 15:45 90 14 102/57 100 08/21/23 15:30 97.1 F L 92 12 91/53 100 08/21/23 15:21 08/21/23 14:51 08/21/23 14:45 102 H 18 95/60 100 08/21/23 14:35 115/60 08/21/23 14:30 98 18 92/58 100 08/21/23 14:24 08/21/23 14:15 98 20 103/59 100 08/21/23 14:12 08/21/23 14:00 104 H 20 99/54 100 08/21/23 13:45 104 H 16 94/57 100 08/21/23 13:30 101 H 16 100/55 100 08/21/23 13:22 97.4 F L 99 14 98/54 97 FiO2 08/22/23 09:00 08/22/23 08:00 08/22/23 07:50 08/22/23 07:00 08/22/23 06:00 08/22/23 05:00 08/22/23 04:00 08/22/23 03:00 08/22/23 02:00 08/22/23 01:00 08/22/23 00:00 08/21/23 23:00 08/21/23 22:00 08/21/23 21:00 08/21/23 20:00 08/21/23 19:00 08/21/23 18:30 08/21/23 18:00 08/21/23 17:30 08/21/23 17:00 08/21/23 16:30 08/21/23 16:00 08/21/23 15:45 08/21/23 15:30 60 08/21/23 15:21 60 08/21/23 14:51 60 08/21/23 14:45 08/21/23 14:35 08/21/23 14:30 08/21/23 14:24 60 08/21/23 14:15 08/21/23 14:12 100 08/21/23 14:00 08/21/23 13:45 08/21/23 13:30 08/21/23 13:22 Intake and Output 08/21/23 08/22/23 08/22/23 22:59 06:59 14:59 Intake Total 370 410 Output Total 890 825 110 Balance -520 -415 -110 Intake: IV 120 210 Lactated Ringers 1,000 ml 120 160 @ 20 mls/hr IV .Q24H [facility] Rx#:[id number] ceFAZolin 2 gm In Sodium 50 Chloride 0.9% 50 ml @ 100 mls/hr IVPB ONCE PRN Rx# :[id number] Oral 250 200 Output: Drainage 220 110 110 Right Lower Back 220 110 110 Urine 645 715 Estimated Blood Loss 25 Other: Voiding Method Indwelling Catheter Indwelling Catheter Indwelling Catheter Weight 119.6 kg No acute distress, oriented 3. Currently on room air. No audible wheezing or use of accessory muscles. HEENT examination is grossly unremarkable. Mucous membranes are moist. No oral lesions. Neck supple. Full range of motion. No adenopathy thyromegaly or neck vein distention. Cardiovascular examination reveals regular rhythm rate. S1-S2 normal. No S3 or S4. No discernible murmur noted. Heart rate 90 bpm. Heart sounds are distant. Lungs reveal clear breath sounds. Breath sounds are equal bilaterally. No adventitious lung sounds including wheezes rhonchi or crackles. Room air saturation is 96%. Abdomen soft bowel sounds are heard. No masses or tenderness. Extremities are intact. No cyanosis clubbing or edema. Skin is without rash or lesion. Neurologic examination is brief but nonfocal. Results - Laboratory Findings CBC and BMP: 08/22/23 05:35 08/22/23 05:35 Abnormal lab findings: Abnormal Labs 08/21/23 08/21/23 08/21/23 07:13 09:43 10:44 WBC RBC Hgb Hct Lymphocytes # Sodium Chloride Carbon Dioxide BUN Creatinine Glucose POC Glucose (mg/dL) 230 H 196 H 194 H Hemoglobin A1c Calcium Magnesium 08/21/23 08/21/23 08/21/23 13:27 14:22 14:22 WBC RBC Hgb Hct Lymphocytes # Sodium Chloride 110 H Carbon Dioxide 20 L BUN 22 H 22 H Creatinine 1.34 H 1.32 H Glucose 241 H POC Glucose (mg/dL) 276 H Hemoglobin A1c Calcium 7.6 L Magnesium 08/21/23 08/21/23 08/21/23 14:22 15:19 17:18 WBC 10.7 H RBC 3.24 L Hgb 11.2 L Hct 32.3 L Lymphocytes # Sodium Chloride Carbon Dioxide BUN Creatinine Glucose POC Glucose (mg/dL) 244 H 228 H Hemoglobin A1c Calcium Magnesium 08/21/23 08/22/23 08/22/23 20:07 05:35 05:35 WBC RBC 3.23 L Hgb 11.1 L Hct 32.1 L Lymphocytes # 0.9 L Sodium Chloride Carbon Dioxide BUN Creatinine Glucose POC Glucose (mg/dL) 231 H Hemoglobin A1c 8.2 H Calcium Magnesium 08/22/23 08/22/23 05:35 06:07 WBC RBC Hgb Hct Lymphocytes # Sodium 136 L Chloride Carbon Dioxide 21 L BUN Creatinine Glucose 139 H POC Glucose (mg/dL) 167 H Hemoglobin A1c Calcium 8.3 L Magnesium 1.3 L - Diagnostic Findings Chest x-ray: image reviewed Assessment and Plan Assessment: Postop day #1, status post L3-L4, L5-S1 interbody fusion, same level neural decompression, cage placement, insertion of a biomechanical device, removal of segmental hardware, and exploration of fusion, L4-S1. Postoperative hypotension, and mental status changes, all resolved. History of hypertension. History of diabetes mellitus. Prior history of back surgery. History of hyperlipidemia. Chronic back pain. Plan: Plan dated 08/22/2023. The patient is seen in the intensive care unit. He was accepted into the intensive care unit yesterday, when after surgery, the patient had hypotension, and mental status changes. The patient was placed on BiPAP, for respiratory support, and dopamine for hemodynamic support. Currently, the patient is seen in room 252. He is currently on room air. She's getting lactated Ringer's at 20 mL an hour. He's no longer requiring BiPAP, or dopamine. Labs, x-rays, and medications are reviewed. The patient is stable for transfer out of the intensive care unit. Time with Patient: Greater than 30
[2023-08-22 11:26] LABS: Glucose,Whole Blood 275 mg/dL (70-110)
[2023-08-22 16:22] LABS: Glucose,Whole Blood 296 mg/dL (70-110)
[2023-08-22 20:47] LABS: Glucose,Whole Blood 285 mg/dL (70-110)
[2023-08-22] MEDS: ATORVASTATIN 40 MG TAB PO SCH (21:07)
[2023-08-22] MEDS: ENOXAPARIN 40 MG/0.4 ML SYRINGE SQ SCH (21:08)
[2023-08-22] MEDS: INSULIN DETEMIR (LEVEMIR) 100 UNIT/ML SYR SQ SCH (21:09)
[2023-08-23] MEDS: ACETAMINOPHEN TAB 325 MG TAB PO SCH ×4 (00:49→17:21)
[2023-08-23 05:21] LABS: Basophils % (A) 0 %; Eosinophils # (A) 0.1 k/uL (0-0.7); Eosinophils % (A) 1 %; HCT 30.1 % (39.0-53.0); HGB 10.6 gm/dL (13.0-17.5); Lymphocytes # (A) 0.8 k/uL (1.0-4.8); Lymphocytes % (A) 10 %; MCH 34.9 pg (25.0-35.0); MCHC 35.1 g/dL (31.0-37.0); MCV 99.3 fL (80.0-100.0); Mean Platelet Volume 7.8; Monocytes # (A) 0.7 k/uL (0-1.0); Monocytes % (A) 8 %; Neutrophils # (A) 6.1 k/uL (1.3-7.7); Neutrophils % (A) 78 %; Platelet Count 147 k/uL (150-450); RBC 3.03 m/uL (4.30-5.90); RDW 12.7 % (11.5-15.5); WBC 7.8 k/uL (3.8-10.6)
[2023-08-23 05:31] LABS: African American GFR (CKD) >90 (>60 ml/min/1.73 sqM); Anion Gap 11 mmol/L; Blood Urea Nitrogen 16 mg/dL (9-20); Calcium 8.3 mg/dL (8.4-10.2); Carbon Dioxide 20 mmol/L (22-30); Chloride 101 mmol/L (98-107); Glucose 305 mg/dL (74-99); Non-African American GFR(CKD) 81 (>60 ml/min/1.73 sqM); Sodium 132 mmol/L (137-145)
[2023-08-23] MEDS: LACTATED RINGERS 1,000 ML IV SCH (06:12)
[2023-08-23] MEDS: INSULIN ASPART (NovoLOG) 100 UNIT/ML VIAL SQ SCH ×4 (07:24→20:13)
[2023-08-23 07:26] LABS: Glucose,Whole Blood 397 mg/dL (70-110)
--- NOTE | 2023-08-23 08:19 | P.PN ---
Subjective Principal diagnosis: The patient is 50-year-old white male's postop day #2 for revision of lumbar fusion with back repair. The patient states he feels much better and vomiting therapy today. No bowel movement as of yet. The pain is significantly controlled. No fever or chills. Blood sugar has been elevated we will uptitrate his Levemir today. No significant nausea, vomiting or diarrhea stated Objective - Vital Signs Vital signs: Vital Signs Temp 97.9 F 08/23/23 02:00 Pulse 105 H 08/23/23 02:00 Resp 17 08/23/23 02:00 BP 136/65 08/23/23 02:00 Pulse Ox 98 08/23/23 02:00 FiO2 60 08/21/23 15:30 Intake & Output 08/22/23 08/23/23 08/23/23 18:59 06:59 18:59 Intake Total 700 0 Output Total 2190 500 Balance -1490 -500 Intake: IV 0 0 Lactated Ringers 1,000 ml 0 0 @ 20 mls/hr IV .Q24H [facility] Rx#:[id number] Oral 700 Output: Drainage 190 Right Lower Back 190 Urine 2000 500 Other: Voiding Method Indwelling Catheter Indwelling Catheter ABP, PAP, CO, CI - Last Documented Arterial Blood Pressure 171/149 - Constitutional General appearance: Present: cooperative, no acute distress - EENT Eyes: Absent: abnormal pupil - Neck Neck: Absent: lymphadenopathy - Respiratory Respiratory: bilateral: diminished - Cardiovascular Rhythm: regular Heart sounds: normal: S1, S2 Abnormal Heart Sounds: Absent: S3 Gallop - Gastrointestinal General gastrointestinal: Present: soft. Absent: tenderness - Labs CBC & Chem 7: 08/23/23 04:08 08/23/23 04:08 Labs: Abnormal Lab Results - Last 24 Hours (Table) 08/22/23 08/22/23 08/22/23 Range/Units 05:35 11:25 16:21 RBC (4.30-5.90) m/uL Hgb (13.0-17.5) gm/dL Hct (39.0-53.0) % Plt Count (150-450) k/uL Lymphocytes # (1.0-4.8) k/uL Sodium (137-145) mmol/L Carbon Dioxide (22-30) mmol/L Glucose (74-99) mg/dL POC Glucose (mg/dL) 275 H 296 H (70-110) mg/dL Hemoglobin A1c 8.2 H (<=6.0) % Calcium (8.4-10.2) mg/dL 08/22/23 08/23/23 08/23/23 Range/Units 20:45 04:08 04:08 RBC 3.03 L (4.30-5.90) m/uL Hgb 10.6 L (13.0-17.5) gm/dL Hct 30.1 L (39.0-53.0) % Plt Count 147 L (150-450) k/uL Lymphocytes # 0.8 L (1.0-4.8) k/uL Sodium 132 L (137-145) mmol/L Carbon Dioxide 20 L (22-30) mmol/L Glucose 305 H (74-99) mg/dL POC Glucose (mg/dL) 285 H (70-110) mg/dL Hemoglobin A1c (<=6.0) % Calcium 8.3 L (8.4-10.2) mg/dL 08/23/23 Range/Units 07:24 RBC (4.30-5.90) m/uL Hgb (13.0-17.5) gm/dL Hct (39.0-53.0) % Plt Count (150-450) k/uL Lymphocytes # (1.0-4.8) k/uL Sodium (137-145) mmol/L Carbon Dioxide (22-30) mmol/L Glucose (74-99) mg/dL POC Glucose (mg/dL) 397 H (70-110) mg/dL Hemoglobin A1c (<=6.0) % Calcium (8.4-10.2) mg/dL Microbiology - Last 24 Hours (Table) 08/21/23 12:53 Acid Fast Bacilli Smear - Preliminary Back 08/21/23 12:55 Gram Stain - Preliminary Back 08/21/23 12:54 Gram Stain - Preliminary Back 08/21/23 12:53 Gram Stain - Preliminary Back Assessment and Plan (1) DDD (degenerative disc disease), lumbar Current Visit: Yes Status: Acute Code(s): M51.36 - OTHER INTERVERTEBRAL DISC DEGENERATION, LUMBAR REGION SNOMED Code(s): 45709552 (2) H/O lumbosacral spine surgery Current Visit: Yes Status: Acute Code(s): Z98.890 - OTHER SPECIFIED POSTPROCEDURAL STATES SNOMED Code(s): 361794095 (3) Hypertension Current Visit: Yes Status: Acute Code(s): I10 - ESSENTIAL (PRIMARY) HYPERTENSION SNOMED Code(s): 57508399 (4) CAD (coronary artery disease) Current Visit: No Status: Acute Code(s): I25.10 - ATHSCL HEART DISEASE OF [place] CORONARY ARTERY W/O ANG PCTRS SNOMED Code(s): 48541563 (5) History of myocardial infarction Current Visit: No Status: Acute Code(s): I25.2 - OLD MYOCARDIAL INFARCTION SNOMED Code(s): 606782681 (6) Hyperlipidemia Current Visit: No Status: Acute Code(s): E78.5 - HYPERLIPIDEMIA, UNSPECIFIED SNOMED Code(s): 93299152 (7) Diabetes Current Visit: No Status: Inactive Code(s): E11.9 - TYPE 2 DIABETES MELLITUS WITHOUT COMPLICATIONS SNOMED Code(s): 57498467 Plan: Continue standard postop protocol. Check CBC and CMP in a.m. [place] increased ambulation today per PT. We'll follow constipation. See orders otherwise.
[2023-08-23] MEDS: amLODIPine 2.5 MG TAB PO SCH (09:00)
[2023-08-23] MEDS: SENNOSIDES-DOCUSATE SODIUM 1 EACH TAB PO SCH (09:00)
[2023-08-23] MEDS: HYDROcodone/APAP 10-325MG 1 EACH TAB PO PRN (09:00)
[2023-08-23] MEDS: PREGABALIN 100 MG CAP PO SCH ×3 (09:00→20:12)
[2023-08-23] MEDS: lisinopriL 20 MG TAB PO SCH (09:00)
[2023-08-23] MEDS: RANOLAZINE 500 MG TAB.ER.12H PO SCH ×2 (09:01→20:14)
[2023-08-23] MEDS: NOREPINEPHRINE 4 MG in SODIUM CHLORIDE 0.9% 250 ML IV SCH (09:29)
--- NOTE | 2023-08-23 09:45 | XR ---
EXAMINATION TYPE: XR chest 1V DATE OF EXAM: 08/23/2023 COMPARISON: 08/22/2023 HISTORY: 58-year-old male postoperative evaluation TECHNIQUE: Single frontal view of the chest is obtained. FINDINGS: Median sternotomy wires are present with post-CABG clips. Heart remains mildly enlarged. M ild interstitial prominence without consolidation or pleural effusion. IMPRESSION: There may be mild pulmonary vascular congestion. Post sternotomy changes.
[2023-08-23] MEDS: NIACIN TR 500 MG CAPLET PO SCH (09:48)
--- NOTE | 2023-08-23 10:36 | P.PN ---
Subjective Progress Note Date: 08/23/23 Principal diagnosis: Hypotension, respiratory distress. Pulmonary consult dated 08/22/2023. This is a 58-year-old male who underwent an extensive tobacco procedure on August 21. After surgery, the patient was found to be poorly responsive, and a blood gas revealed respiratory acidosis. The patient was placed on dopamine for blood pressure support, and, placed on BiPAP. The patient was transferred to the intensive care unit for further monitoring and management. Today, he seen in room 252. Today's postop day #1. Currently on room air. He did not use of BiPAP last night. He is getting lactated Ringer's at 20 mL an hour. He's no longer on dopamine. In fact, the patient is stable for transfer out of the intensive care unit. White count is 9.1, hemoglobin 11.1, hematocrit 32.1, and platelet count 178,000. Sodium 136, potassium 4, chlorides 104, CO2 21, BUN 20, creatinine 1.01. Chest x-ray shows some very mild pulmonary vascular changes. Progress note dated 08/23/2023. Today is postop day #2, status post extensive back surgery. The patient is seen again in room 252, in the intensive care unit. The patient is 58 years of age. He had an uneventful night's according to the nurse. The patient's currently on room air. No IV fluids. The patient had no complaints today. White count 7.8, hemoglobin 10.6, hematocrit 30.1, and a platelet count of 147,000. Sodium 132, potassium 4, chlorides 101, CO2 20, BUN 16, creatinine 1.02. Calcium is 8.3. M agnesium is 2. Wound cultures are thus far negative are pending. Chest x-ray shows some very mild pulmonary vascular changes. Objective - Vital Signs Vital signs: Vital Signs Temp 99.9 F H 08/23/23 08:00 Pulse 101 H 08/23/23 08:00 Resp 20 08/23/23 08:00 BP 141/84 08/23/23 08:00 Pulse Ox 98 08/23/23 08:00 FiO2 60 08/21/23 15:30 Intake & Output 08/22/23 08/23/23 08/23/23 18:59 06:59 18:59 Intake Total 700 0 Output Total 2190 500 110 Balance -1490 -500 -110 Intake: IV 0 0 Lactated Ringers 1,000 ml 0 0 @ 20 mls/hr IV .Q24H [facility] Rx#:[id number] Oral 700 Output: Drainage 190 110 Right Lower Back 190 110 Urine 2000 500 Other: Voiding Method Indwelling Catheter Indwelling Catheter Urinal ABP, PAP, CO, CI - Last Documented Arterial Blood Pressure 171/149 - Exam No acute distress, oriented 3. Currently on room air. No audible wheezing or use of accessory muscles. HEENT examination is grossly unremarkable. Mucous membranes are moist. No oral lesions. Neck supple. Full range of motion. No adenopathy thyromegaly or neck vein distention. Cardiovascular examination reveals regular rhythm rate. S1-S2 normal. No S3 or S4. No discernible murmur noted. Heart rate 99 bpm. Heart sounds are distant. Lungs reveal clear breath sounds. Breath sounds are equal bilaterally. No adventitious lung sounds including wheezes rhonchi or crackles. Room air saturation is 98% . Abdomen soft bowel sounds are heard. No masses or tenderness. Extremities are intact. No cyanosis clubbing or edema. Skin is without rash or lesion. Neurologic examination is brief but nonfocal. - Labs CBC & Chem 7: 08/23/23 04:08 08/23/23 04:08 Labs: Abnormal Lab Results - Last 24 Hours (Table) 08/22/23 08/22/23 08/22/23 Range/Units 11:25 16:21 20:45 RBC (4.30-5.90) m/uL Hgb (13.0-17.5) gm/dL Hct (39.0-53.0) % Plt Count (150-450) k/uL Lymphocytes # (1.0-4.8) k/uL Sodium (137-145) mmol/L Carbon Dioxide (22-30) mmol/L Glucose (74-99) mg/dL POC Glucose (mg/dL) 275 H 296 H 285 H (70-110) mg/dL Calcium (8.4-10.2) mg/dL 08/23/23 08/23/23 08/23/23 Range/Units 04:08 04:08 07:24 RBC 3.03 L (4.30-5.90) m/uL Hgb 10.6 L (13.0-17.5) gm/dL Hct 30.1 L (39.0-53.0) % Plt Count 147 L (150-450) k/uL Lymphocytes # 0.8 L (1.0-4.8) k/uL Sodium 132 L (137-145) mmol/L Carbon Dioxide 20 L (22-30) mmol/L Glucose 305 H (74-99) mg/dL POC Glucose (mg/dL) 397 H (70-110) mg/dL Calcium 8.3 L (8.4-10.2) mg/dL Microbiology - Last 24 Hours (Table) 08/21/23 12:53 Gram Stain - Preliminary Back Tissue Culture - Preliminary 08/21/23 12:54 Gram Stain - Preliminary Back Wound Culture - Preliminary 08/21/23 12:55 Gram Stain - Preliminary Back Wound Culture - Preliminary 08/21/23 12:53 Acid Fast Bacilli Smear - Preliminary Back Assessment and Plan Assessment: Postop day #2, status post L3-L4, L5-S1 interbody fusion, same level neural decompression, cage placement, insertion of a biomechanical device, removal of segmental hardware, and exploration of fusion, L4-S1. Postoperative hypotension, and mental status changes, all resolved. History of hypertension. History of diabetes mellitus. Prior history of back surgery. History of hyperlipidemia. Chronic back pain. Plan: Plan dated 08/22/2023. The patient is seen in the intensive care unit. He was accepted into the intensive care unit yesterday, when after surgery, the patient had hypotension, and mental status changes. The patient was placed on BiPAP, for respiratory support, and dopamine for hemodynamic support. Currently, the patient is seen in room 252. He is currently on room air. She's getting lactated Ringer's at 20 mL an hour. He's no longer requiring BiPAP, or dopamine. Labs, x-rays, and medications are reviewed. The patient is stable for [facility]. Plan dated 08/23/2023. The patient is seen today in room 252. He's currently on room air. He's not receiving any IV fluids. Labs, x-rays, and medications are reviewed. The patie nt had an uneventful night according to the nurse. The patient denies any shortness of breath, difficulty breathing, cough, wheezing, or phlegm production. The patient also denies any chest pain or chest discomfort. His respiratory hemodynamic status is stable. From my perspective, the patient c ould be transferred out to the general medical floor. He does not need telemetry in my opinion. Culture data is negative or pending. Time with Patient: Less than 30
[2023-08-23 11:23] LABS: Glucose,Whole Blood 303 mg/dL (70-110)
--- NOTE | 2023-08-23 13:25 | P.PN ---
Subjective Progress Note Date: 08/23/23 Principal diagnosis: 1. L3-4, L5-S1 adjacent segment disease, spondylotic collapse with stenosis 2.S/P L4-S1 TLIF at OSH 3. lower extremity weakness 4. Low back pain 5. LE paresthesisa Patient seen and examined this morning. Patient is sitting up in chair. He reports he has been up and about self-transfer to and from chair and bed. Kera mora has been utilizing walker to restroom. He does report an aching low back pain, that is managed on current regimen. Surgical incision to the lumbar spine with Hemovac present, 110ml output overnight. Dressing is CDI. Arias catheter has been removed. Pateint states he has been urinating without difficulty. Patient states he has not had a BM or passing gas, medications will be added. No acute concerns at this time. Objective - Vital Signs Vital signs: Vital Signs Temp 99.9 F H 08/23/23 08:00 Pulse 101 H 08/23/23 08:00 Resp 20 08/23/23 08:00 BP 141/84 08/23/23 08:00 Pulse Ox 98 08/23/23 08:00 FiO2 60 08/21/23 15:30 Intake & Output 08/22/23 08/23/23 08/23/23 18:59 06:59 18:59 Intake Total 700 0 Output Total 2190 500 110 Balance -1490 -500 -110 Intake: IV 0 0 Lactated Ringers 1,000 ml 0 0 @ 20 mls/hr IV .Q24H [facility] Rx#:[id number] Oral 700 Output: Drainage 190 110 Right Lower Back 190 110 Urine 2000 500 Other: Voiding Method Indwelling Catheter Indwelling Catheter Urinal ABP, PAP, CO, CI - Last Documented Arterial Blood Pressure 171/149 - Exam Physical Examination General: The patient is awake and alert, in no acute distress Skin: Skin is warm and dry with no obvious rashes or lesions. Surgical incision to the lumbar spine with Hemovac present, 110ml output overnight. Dressing is CDI. Eye: Pupils are equal, round and reactive to light, extra-ocular movements are intact; there is normal conjunctiva bilaterally. Neck: The neck is supple, there is no tenderness and ROM intact. Cardiovascular: There is a regular rate and rhythm. No murmur, rub or gallop is appreciated. Respiratory: Lungs are clear to auscultation, respirations are non-labored, breath sounds are equal. Gastrointestinal: Soft, non-distended, non-tender abdomen. Back: There is no tenderness to palpation in the midline, paralumbar, parathoracic or buttocks region. There is no obvious deformity . Musculoskeletal: ROM limited secondary to pain and stiffness from surgical procedure. Muscle strength in all major muscle groups of bilateral upper extremities 5/5, right lower extremity 4-/5, left lower extremity 4/5. Neurological: CN 2-12 intact. There are no obvious motor or sensory deficits. Movement and coordination equal and intact. Sensory exam to light touch intact C5-T1 and intact from L2-S1. Reflexes 2/4 in bilateral upper and lower extremities. Negative Hoffmans, babinski, and clonus signs. Psychiatric: Cooperative, appropriate mood & affect, normal judgment. - Labs CBC & Chem 7: 08/23/23 04:08 08/23/23 04:08 Labs: Abnormal Lab Results - Last 24 Hours (Table) 08/22/23 08/22/23 08/23/23 Range/Units 16:21 20:45 04:08 RBC 3.03 L (4.30-5.90) m/uL Hgb 10.6 L (13.0-17.5) gm/dL Hct 30.1 L (39.0-53.0) % Plt Count 147 L (150-450) k/uL Lymphocytes # 0.8 L (1.0-4.8) k/uL Sodium (137-145) mmol/L Carbon Dioxide (22-30) mmol/L Glucose (74-99) mg/dL POC Glucose (mg/dL) 296 H 285 H (70-110) mg/dL Calcium (8.4-10.2) mg/dL 08/23/23 08/23/23 08/23/23 Range/Units 04:08 07:24 11:22 RBC (4.30-5.90) m/uL Hgb (13.0-17.5) gm/dL Hct (39.0-53.0) % Plt Count (150-450) k/uL Lymphocytes # (1.0-4.8) k/uL Sodium 132 L (137-145) mmol/L Carbon Dioxide 20 L (22-30) mmol/L Glucose 305 H (74-99) mg/dL POC Glucose (mg/dL) 397 H 303 H (70-110) mg/dL Calcium 8.3 L (8.4-10.2) mg/dL Microbiology - Last 24 Hours (Table) 08/21/23 12:53 Gram Stain - Preliminary Back Tissue Culture - Preliminary 08/21/23 12:54 Gram Stain - Preliminary Back Wound Culture - Preliminary 08/21/23 12:55 Gram Stain - Preliminary Back Wound Culture - Preliminary 08/21/23 12:53 Acid Fast Bacilli Smear - Preliminary Back Assessment and Plan Assessment: Postop day 2: Revision [id number] decompression and fusion 1. L3-4, L5-S1 adjacent segment disease, spondylotic collapse with stenosis 2.S/P L4-S1 TLIF at OSH 3. lower extremity weakness 4. Low back pain 5. LE paresthesisa Plan: -Appreciate bilingual sales consultant and team management. -Activity: Ambulate QID, OOB all meals, up and about, limit lifting bending twisting to less than 5 lbs. Use walker or cane if needed for stability. -Daily PT/OT, increase ambulation strength and balance. -Brace when up and about, not needed in bed or chair -Pain control: Adequate at this time -Meds: reviewed -GI ppx: senna, Miralax -DVT PPX: Heparin -Hygiene: Shower today. Maintain dressing clean and dry. Meticulous cleaning after BMs away from the incision site -Drains: Maintain for now. Continue to monitor and record output q shift. -Encourage IS 10x/hr -Dispo: Anticipating discharge home in the next 48hrs. *I reviewed and discussed this case with my attending Dr. Hernadez, whom has reviewed this chart and films and is in agreement with assessment and plan of care as outlined above. I have personally seen and examined the patient, performed the documentation and the assessment and plan as written. Number of minutes spent on the visit: 10m.
--- NOTE | 2023-08-23 14:12 | CDI ---
Documentation Clarification Form Date: 08/23/2023 01:36:55 PM From: Ludmila Cabral RN CCDS Phone: [phone] Admit Date: 08/21/2023 06:30:00 AM Patient Name: Ubaldo Russell Visit Number: [id number] Discharge Date: ATTENTION: The Clinical Documentation Specialists (CDI) and [facility] Coding Staff appreciate your assistance in clarifying documentation. Please respond to the clarification below the line at the bottom and electronically sign. The CDI & [facility] Coding staff will review the response and follow-up if needed. Please note: Queries are made part of the Legal Health Record. If you have any questions, please contact the author of this message via ITS. Dr. Jose Carlos Alonso Your patient had respiratory acidosis, 08/22, Pulmonary consult. Based on this information and the findings below, is there an additional diagnosis that is clinically appropriate for this patient? History/Risk Factors: 58-year old female with history of prior spinal surgery, drop foot, current smoker, DM, HTN, [place] and renal disease. 08/22 Medicine consult Tobacco use: Current every day smoker Home oxygen: none Clinical Indicators: Pulmonary consult, 08/22: After surgery, the patient was found to be poorly responsive and a blood gas revealed respiratory acidosis. VSS, 08/21: 13:39 B/P 100/55, HR 101, RR 16, SpO2 97% simple mask 6L 13:45 B/P 94/57, HR 101, RR 16, SpO2 100% simple mask 10L 14:30 B/P 92/58, HR, 98, RR 18, SpO2 100% BiPAP Lung/Breathing assessment: Per nursing note, 08/21: Inspiratory and Expiratory Rhonchi, diminished with nonproductive cough. Treatment: ICU admission Breathing tx; 08/21 Ventolin x 1 Simple mask 6L to 10L , BiPAP Is there an additional diagnosis that is clinically appropriate for this patient? [ x ] Acute Hypercapnic Respiratory Failure (pCO2 >50 and pH <7.35) [ ] Other Diagnosis, please specify [ ] Unable to determine (Template Last Revised: December 2020) MTDD
[2023-08-23] MEDS: MAGNESIUM HYDROXIDE 2,400 MG/30 ML CUP PO SCH (14:13)
--- NOTE | 2023-08-23 14:13 | CDI ---
Documentation Clarification Form Date: 08/23/2023 01:58:22 PM From: Ludmila Cabral RN CCDS Phone: [phone] Admit Date: 08/21/2023 06:30:00 AM Patient Name: Ubaldo Rsusell Visit Number: [id number] Discharge Date: ATTENTION: The Clinical Documentation Specialists (CDI) and [facility] Coding Staff appreciate your assistance in clarifying documentation. Please respond to the clarification below the line at the bottom and electronically sign. The CDI & [facility] Coding staff will review the response and follow-up if needed. Please note: Queries are made part of the Legal Health Record. If you have any questions, please contact the author of this message via ITS. Dr. Jose Carlos Alonso Your patient has the documented symptom of Altered Mental Status 08/22, Pulmonary consult. Additional clarification regarding the etiology/cause of this symptom is requested. History/Risk Factors: 58-year old female with history of prior spinal surgery, drop foot, current smoker, DM, HTN, [place] and renal disease. 08/22 Medicine consult Clinical Indicators: Pulmonary consult, 08/22: After surgery, the patient was found to be poorly responsive and a blood gas revealed respiratory acidosis. The patient was placed on dopamine for blood pressure support, and, placed on BiPAP Treatment: Ventolin x 1; Simple mask 6L, BiPAP ICU admission Please clarify the etiology of the symptom of Altered Mental Status: [ ] Metabolic Encephalopathy due to respiratory acidosis [ ] Metabolic Encephalopathy due to other [ x ] Other condition (please specify) [ ] Unable to determine (Template Last Revised: November 2020) MTDD
--- NOTE | 2023-08-23 15:31 | CDI ---
Documentation Clarification Form Date: 08/23/2023 01:04:00 PM From: Ludmila Cabral RN CCDS Phone: [phone] Admit Date: 08/21/2023 06:30:00 AM Patient Name: Ubaldo Russell Visit Number: [id number] Discharge Date: ATTENTION: The Clinical Documentation Specialists (CDI) and [facility] Coding Staff appreciate your assistance in clarifying documentation. Please respond to the clarification below the line at the bottom and electronically sign. The CDI & [facility] Coding staff will review the response and follow-up if needed. Please note: Queries are made part of the Legal Health Record. If you have any questions, please contact the author of this message via ITS. Dr. Gilberto Hernadez Post-operative hypotension is documented 08/22, Pulmonology consult and patient had Spinal revision, interbody fusion, Laminoforaminotomy and decompression. Additional clarification is requested regarding the relationship, if any, that exists between the diagnosis and the procedure. Patients Admitting Diagnosis: ASD L3-4, L5-S1 Spondylosis with stenosis, Pseudo arthrosis L4 L5, LE weakness, drop foot, LE Paresthesias and low back pain. Post-Operative Diagnosis: same as admitting diagnosis Procedure performed: Revision posteriolateral fusion, Posterolateral and interbody fusion and Laminoforaminotomy History/Risk Factors: 58-year old female with history of prior spinal surgery, drop foot, current smoker, DM, HTN, [place] and renal disease. 08/22 Medicine consult Clinical Indicators: Nursing Note 08/21 BP remains low, urine output minimal. Minimal respiratory effort VSS 08/21: 13:22 B/P 98/54, HR 99, RR 14, SpO2 97% simple mask 6L 13:39 B/P 100/55, HR 101, RR 16, SpO2 97% simple mask 6L 13:45 B/P 94/57, HR 101, RR 16, SpO2 100% simple mask 10L 14:30 B/P 92/58, HR, 98, RR 18, SpO2 100% BiPAP Pulmonary consult, 08/22: After surgery, the patient was found to be poorly responsive and a blood gas revealed respiratory acidosis. The patient was placed on dopamine for blood pressure support and placed on BiPAP Treatment: ICU admission, Dopamine, BiPAP, Lactated ringers 20mls/hr IV Consults: Pulmonary What relationship, if any, exists between the diagnosis of Hypotension and the procedure: [ ] Hypotension is a complication of surgical procedure [ ] Hypotension is related to patients co-morbid condition(s) of [insert co- morbid dxs] & not a complication of the procedure [ ] Other please specify ____ [ ] Unable to determine (Template Last Revised: December 2020) Hypotension is related to patients co-morbid condition(s) & and expected outcome of a large surgery MTDD
[2023-08-23 16:32] LABS: Glucose,Whole Blood 328 mg/dL (70-110)
[2023-08-23 20:02] LABS: Glucose,Whole Blood 304 mg/dL (70-110)
[2023-08-23] MEDS: ENOXAPARIN 40 MG/0.4 ML SYRINGE SQ SCH (20:12)
[2023-08-23] MEDS: ATORVASTATIN 40 MG TAB PO SCH (20:12)
[2023-08-23] MEDS: HYDROcodone/APAP 5-325MG 1 EACH TAB PO PRN (20:12)
[2023-08-23] MEDS ORDERED: INSULIN DETEMIR (LEVEMIR) 100 UNIT/ML SYR SQ SCH (21:00)
[2023-08-23] MEDS ORDERED: polyethylene glycoL 3350 17 GM POWD.PACK PO SCH (21:00)
[2023-08-24] MEDS: LACTATED RINGERS 1,000 ML IV SCH (05:48)
[2023-08-24 06:22] LABS: Basophils % (A) 0 %; Eosinophils # (A) 0.2 k/uL (0-0.7); Eosinophils % (A) 2 %; HCT 31.2 % (39.0-53.0); HGB 10.5 gm/dL (13.0-17.5); Lymphocytes # (A) 1.1 k/uL (1.0-4.8); Lymphocytes % (A) 15 %; MCH 33.7 pg (25.0-35.0); MCHC 33.6 g/dL (31.0-37.0); MCV 100.2 fL (80.0-100.0); Mean Platelet Volume 7.7; Monocytes # (A) 0.5 k/uL (0-1.0); Monocytes % (A) 6 %; Neutrophils # (A) 5.5 k/uL (1.3-7.7); Neutrophils % (A) 74 %; Platelet Count 166 k/uL (150-450); RBC 3.11 m/uL (4.30-5.90); RDW 12.7 % (11.5-15.5); WBC 7.4 k/uL (3.8-10.6)
[2023-08-24 06:35] LABS: Glucose,Whole Blood 332 mg/dL (70-110)
[2023-08-24] MEDS: INSULIN ASPART (NovoLOG) 100 UNIT/ML VIAL SQ SCH ×2 (07:00→12:11)
[2023-08-24] MEDS: ACETAMINOPHEN TAB 325 MG TAB PO SCH ×3 (07:00→12:11)
[2023-08-24] MEDS ORDERED: bisacodyL 10 MG SUPP RECTAL PRN (08:14)
--- NOTE | 2023-08-24 08:22 | P.PN ---
Subjective Progress Note Date: 08/24/23 This is a 58-year-old male who underwent spinal surgery with Dr. Hernadez on 08/21/23. He does have a history of a prior spinal surgery. Also with a history of diabetes, hyperlipidemia, and hypertension. Patient underwent a L3-4, L5-S1 posteriolateral and interbody fusion, revision posterior lateral fusion L4-5, and L3-4, L5-S1 laminoforaminotomy for neural decompression and cage placement. 08/24/2023 Patient is postop day #3. He is seen sitting in chair at side of bed this morning. He reports he has been able to get up and move around some. He is tolerating diet. He has not had a bowel movement yet. Blood sugars are also elevated in the 300s. Pain is well-controlled. Objective - Vital Signs Vital signs: Vital Signs Temp 98.0 F 08/24/23 02:00 Pulse 96 08/24/23 02:00 Resp 14 08/24/23 02:00 BP 119/84 08/24/23 02:00 Pulse Ox 96 08/24/23 02:00 FiO2 60 08/21/23 15:30 Intake & Output 08/23/23 08/24/23 08/24/23 18:59 06:59 18:59 Intake Total 500 Output Total 1480 1040 Balance -980 -1040 Intake: IV 0 Lactated Ringers 1,000 ml 0 @ 20 mls/hr IV .Q24H [facility] Rx#:[id number] Oral 500 Output: Drainage 180 90 Right Lower Back 180 90 Urine 1300 950 Other: Voiding Method Urinal Urinal ABP, PAP, CO, CI - Last Documented Arterial Blood Pressure 171/149 - Constitutional General appearance: Present: cooperative, no acute distress - EENT Eyes: Present: PERRLA - Neck Neck: Present: normal ROM. Absent: lymphadenopathy, rigidity - Respiratory Respiratory: bilateral: CTA - Cardiovascular Rhythm: regular Heart sounds: normal: S1, S2 - Gastrointestinal General gastrointestinal: Present: distended, soft - Integumentary Integumentary: Present: normal, normal turgor - Psychiatric Psychiatric: Present: A&O x's 3, appropriate affect, intact judgment & insight - Labs CBC & Chem 7: 08/24/23 05:59 08/23/23 04:08 Labs: Abnormal Lab Results - Last 24 Hours (Table) 08/23/23 08/23/23 08/23/23 Range/Units 11:22 16:31 20:00 RBC (4.30-5.90) m/uL Hgb (13.0-17.5) gm/dL Hct (39.0-53.0) % MCV (80.0-100.0) fL POC Glucose (mg/dL) 303 H 328 H 304 H (70-110) mg/dL 08/24/23 08/24/23 Range/Units 05:59 06:34 RBC 3.11 L (4.30-5.90) m/uL Hgb 10.5 L (13.0-17.5) gm/dL Hct 31.2 L (39.0-53.0) % MCV 100.2 H (80.0-100.0) fL POC Glucose (mg/dL) 332 H (70-110) mg/dL Microbiology - Last 24 Hours (Table) 08/21/23 12:53 Gram Stain - Preliminary Back Tissue Culture - Preliminary 08/21/23 12:54 Gram Stain - Preliminary Back Wound Culture - Preliminary 08/21/23 12:55 Gram Stain - Preliminary Back Wound Culture - Preliminary Assessment and Plan (1) H/O lumbosacral spine surgery Current Visit: Yes Status: Acute Code(s): Z98.890 - OTHER SPECIFIED POSTPROCEDURAL STATES SNOMED Code(s): 213039731 (2) DDD (degenerative disc disease), lumbar Current Visit: Yes Status: Acute Code(s): M51.36 - OTHER INTERVERTEBRAL DISC DEGENERATION, LUMBAR REGION SNOMED Code(s): 04808435 (3) Lower extremity weakness Current Visit: Yes Status: Acute Code(s): R29.898 - OTH SYMPTOMS AND SIGNS INVOLVING THE MUSCULOSKELETAL SYSTEM SNOMED Code(s): 596600122 (4) CAD (coronary artery disease) Current Visit: No Status: Acute Code(s): I25.10 - ATHSCL HEART DISEASE OF [place] CORONARY ARTERY W/O ANG PCTRS SNOMED Code(s): 34418968 (5) Hyperlipidemia Current Visit: No Status: Acute Code(s): E78.5 - HYPERLIPIDEMIA, UNSPECIFIED SNOMED Code(s): 34652445 (6) Diabetes Current Visit: No Status: Inactive Code(s): E11.9 - TYPE 2 DIABETES MELLITUS WITHOUT COMPLICATIONS SNOMED Code(s): 57530463 (7) Hypertension Current Visit: Yes Status: Acute Code(s): I10 - ESSENTIAL (PRIMARY) HYPERTE NSION SNOMED Code(s): 77023985 Plan: Continue to follow postop instructions from surgeon. Check CBC and CMP in the morning. We'll add Dulcolax. Resume long-acting insulin home dose. Start NovoLog 25 units with each meal plus sliding scale Patient seen and evaluated by nurse practitioner, physician in agreement with plan
[2023-08-24 08:47] LABS: ALT 18 U/L (4-49); AST 26 U/L (17-59); African American GFR (CKD) >90 (>60 ml/min/1.73 sqM); Albumin 3.3 g/dL (3.5-5.0); Alkaline Phosphatase 79 U/L (38-126); Anion Gap 11 mmol/L; Blood Urea Nitrogen 14 mg/dL (9-20); Calcium 9.4 mg/dL (8.4-10.2); Carbon Dioxide 22 mmol/L (22-30); Chloride 103 mmol/L (98-107); Glucose 293 mg/dL (74-99); Non-African American GFR(CKD) >90 (>60 ml/min/1.73 sqM); Potassium 4.8 mmol/L (3.5-5.1); Sodium 136 mmol/L (137-145); Total Bilirubin 0.5 mg/dL (0.2-1.3); Total Protein 5.7 g/dL (6.3-8.2)
[2023-08-24] MEDS: PREGABALIN 100 MG CAP PO SCH (09:12)
[2023-08-24] MEDS: MAGNESIUM HYDROXIDE 2,400 MG/30 ML CUP PO SCH (09:12)
[2023-08-24] MEDS: HYDROcodone/APAP 5-325MG 1 EACH TAB PO PRN (09:12)
[2023-08-24] MEDS: SENNOSIDES-DOCUSATE SODIUM 1 EACH TAB PO SCH (09:12)
[2023-08-24] MEDS: lisinopriL 20 MG TAB PO SCH (09:12)
[2023-08-24] MEDS: NIACIN TR 500 MG CAPLET PO SCH (09:13)
[2023-08-24] MEDS: amLODIPine 2.5 MG TAB PO SCH (09:13)
[2023-08-24] MEDS: RANOLAZINE 500 MG TAB.ER.12H PO SCH (09:14)
--- NOTE | 2023-08-24 09:53 | P.PN ---
Subjective Progress Note Date: 08/24/23 Principal diagnosis: 1. L3-4, L5-S1 adjacent segment disease, spondylotic collapse with stenosis 2.S/P L4-S1 TLIF at OSH 3. lower extremity weakness 4. Low back pain 5. LE paresthesisa Patient seen and examined this morning. Patient is sitting up in chair. He reports he has been up and about self-transfer to and from chair and bed. Patient has been utilizing walker to restroom. He does report an aching low back pain, that is managed on current regimen. Surgical incision to the lumbar spine, edges are well approximated with tim intact. Hemovac drain has been removed and new dressing applied. Patient states he has not had a BM or passing gas, medications will be added. No acute concerns at this time. Objective - Vital Signs Vital signs: Vital Signs Temp 98.0 F 08/24/23 02:00 Pulse 96 08/24/23 02:00 Resp 14 08/24/23 02:00 BP 119/84 08/24/23 02:00 Pulse Ox 96 08/24/23 02:00 FiO2 60 08/21/23 15:30 Intake & Output 08/23/23 08/24/23 08/24/23 18:59 06:59 18:59 Intake Total 500 Output Total 1480 1040 Balance -980 -1040 Intake: IV 0 Lactated Ringers 1,000 ml 0 @ 20 mls/hr IV .Q24H [facility] Rx#:[id number] Oral 500 Output: Drainage 180 90 Right Lower Back 180 90 Urine 1300 950 Other: Voiding Method Urinal Urinal ABP, PAP, CO, CI - Last Documented Arterial Blood Pressure 171/149 - Exam Physical Examination General: The patient is awake and alert, in no acute distress Skin: Skin is warm and dry with no obvious rashes or lesions. Surgical incision to the lumbar spine, edges are well approximated with tim intact. Hemovac drain has been removed and new dressing applied. Eye: Pupils are equal, round and reactive to light, extra-ocular movements are intact; there is normal conjunctiva bilaterally. Neck: The neck is supple, there is no tenderness and ROM intact. Cardiovascular: There is a regular rate and rhythm. No murmur, rub or gallop is appreciated. Respiratory: Lungs are clear to auscultation, respirations are non-labored, br eath sounds are equal. Gastrointestinal: Soft, non-distended, non-tender abdomen. Back: There is no tenderness to palpation in the midline, paralumbar, parathoracic or buttocks region. There is no obvious deformity . Musculoskeletal: ROM limited secondary to pain and stiffness from surgical pr ocedure. Muscle strength in all major muscle groups of bilateral upper extremities 5/5, right lower extremity 4-/5, left lower extremity 4/5. Neurological: CN 2-12 intact. There are no obvious motor or sensory deficits. Movement and coordination equal and intact. Sensory exam to light touch intact C5-T1 and intact from L2-S1. Reflexes 2/4 in bilateral upper and lower extremities. Negative Hoffmans, babinski, and clonus signs. Psychiatric: Cooperative, appropriate mood & affect, normal judgment. - Labs CBC & Chem 7: 08/24/23 05:59 08/24/23 05:59 Labs: Abnormal Lab Results - Last 24 Hours (Table) 08/23/23 08/23/23 08/23/23 Range/Units 11: 16:31 20:00 RBC (4.30-5.90) m/uL Hgb (13.0-17.5) gm/dL Hct (39.0-53.0) % MCV (80.0-100.0) fL Sodium (137-145) mmol/L Glucose (74-99) mg/dL POC Glucose (mg/dL) 303 H 328 H 304 H (70-110) mg/dL Total Protein (6.3-8.2) g/dL Albumin (3.5-5.0) g/dL 08/24/23 08/24/23 08/24/23 Range/Units 05:59 05:59 06:34 RBC 3.11 L (4.30-5.90) m/uL Hgb 10.5 L (13.0-17.5) gm/dL Hct 31.2 L (39.0-53.0) % MCV 100.2 H (80.0-100.0) fL Sodium 136 L (137-145) mmol/L Glucose 293 H (74-99) mg/dL POC Glucose (mg/dL) 332 H (70-110) mg/dL Total Protein 5.7 L (6.3-8.2) g/dL Albumin 3.3 L (3.5-5.0) g/dL Microbiology - Last 24 Hours (Table) 08/21/23 12:53 Gram Stain - Preliminary Back Tissue Culture - Preliminary 08/21/23 12:55 Gram Stain - Final Back Wound Culture - Final 08/21/23 12:54 Gram Stain - Final Back Wound Culture - Final Assessment and Plan Assessment: Postop day 3: Revision [id number] decompression and fusion 1. L3-4, L5-S1 adjacent segment disease, spondylotic collapse with stenosis 2.S/P L4-S1 TLIF at OSH 3. lower extremity weakness 4. Low back pain 5. LE paresthesisa Plan: -Appreciate performance test consultant and team management. -Activity: Ambulate QID, OOB all meals, up and about, limit lifting bending twisting to less than 5 lbs. Use walker or cane if needed for stability. -Daily PT/OT, increase ambulation strength and balance. -Brace when up and about, not needed in bed or chair -Pain control: Adequate at this time -Meds: reviewed -GI ppx: senna, Miralax -DVT PPX: Heparin -Hygiene: Shower today. Maintain dressing clean and dry. Meticulous cleaning after BMs away from the incision site -Encourage IS 10x/hr -Dispo: Patient is cleared from Orthopedic standpoint for discharge when medically stable. *I reviewed and discussed this case with my attending Dr. Hernadez, whom has reviewed this chart and films and is in agreement with assessment and plan of care as outlined above. I have personally seen and examined the patient, performed the documentation and the assessment and plan as written. Number of minutes spent on the visit: 10m.
[2023-08-24 10:15] VITALS: BP 144/79; PULSE 86; RESP 18; TEMP 98.5
--- NOTE | 2023-08-24 10:51 | P.PN ---
Subjective Progress Note Date: 08/24/23 Principal diagnosis: Hypotension, respiratory distress. Pulmonary consult dated 08/22/2023. This is a 58-year-old male who underwent an extensive tobacco procedure on August 21. After surgery, the patient was found to be poorly responsive, and a blood gas revealed respiratory acidosis. The patient was placed on dopamine for blood pressure support, and, placed on BiPAP. The patient was transferred to the intensive care unit for further monitoring and management. Today, he seen in room 252. Today's postop day #1. Currently on room air. He did not use of BiPAP last night. He is getting lactated Ringer's at 20 mL an hour. He's no longer on dopamine. In fact, the patient is stable for transfer out of the intensive care unit. White count is 9.1, hemoglobin 11.1, hematocrit 32.1, and platelet count 178,000. Sodium 136, potassium 4, chlorides 104, CO2 21, BUN 20, creatinine 1.01. Chest x-ray shows some very mild pulmonary vascular changes. Progress note dated 08/23/2023. Today is postop day #2, status post extensive back surgery. The patient is seen again in room 252, in the intensive care unit. The patient is 58 years of age. He had an uneventful night's according to the nurse. The patient's currently on room air. No IV fluids. The patient had no complaints today. White count 7.8, hemoglobin 10.6, hematocrit 30.1, and a platelet count of 147,000. Sodium 132, potassium 4, chlorides 101, CO2 20, BUN 16, creatinine 1.02. Calcium is 8.3. M agnesium is 2. Wound cultures are thus far negative are pending. Chest x-ray shows some very mild pulmonary vascular changes. Progress note dated 08/24/2023. Today is postop day #3, status post back surgery. The patient is seen today in room 252. Currently on room air. No IV fluids. The patient is close to being discharged. Apparently surgery is waiting for him to have had a bowel movement. White count 7.4, hemoglobin 10.5, hematocrit 31.2, and platelet count 166,000. Sodium 136, potassium 4.8, chlorides 103, CO2 22, BUN 14, and creatinine 0.89. Glucose 332. Albumin is 3.3. Objective - Vital Signs Vital signs: Vital Signs Temp 98.5 F 08/24/23 08:00 Pulse 86 08/24/23 08:00 Resp 18 08/24/23 08:00 BP 144/79 08/24/23 08:00 Pulse Ox 95 08/24/23 08:00 FiO2 60 08/21/23 15:30 Intake & Output 08/23/23 08/24/23 08/24/23 18:59 06:59 18:59 Intake Total 500 Output Total 1480 1040 Balance -980 -1040 Intake: IV 0 Lactated Ringers 1,000 ml 0 @ 20 mls/hr IV .Q24H [facility] Rx#:[id number] Oral 500 Output: Drainage 180 90 Right Lower Back 180 90 Urine 1300 950 Other: Voiding Method Urinal Urinal Urinal ABP, PAP, CO, CI - Last Documented Arterial Blood Pressure 171/149 - Exam No acute distress, oriented 3. Currently on room air. No audible wheezing or use of accessory muscles. HEENT examination is grossly unremarkable. Mucous membranes are moist. No oral lesions. Neck supple. Full range of motion. No adenopathy thyromegaly or neck vein distention. Cardiovascular examination reveals regular rhythm rate. S1-S2 normal. No S3 or S4. No discernible murmur noted. Heart rate 86 bpm. Heart sounds are distant. Lungs reveal clear breath sounds. Breath sounds are equal bilaterally. No adventitious lung sounds including wheezes rhonchi or crackles. Room air saturation is 95 % . Abdomen soft bowel sounds are heard. No masses or tenderness. Extremities are intact. No cyanosis clubbing or edema. Skin is without rash or lesion. Neurologic examination is brief but nonfocal. - Labs CBC & Chem 7: 08/24/23 05:59 08/24/23 05:59 Labs: Abnormal Lab Results - Last 24 Hours (Table) 08/23/23 08/23/23 08/23/23 Range/Units 11:22 16:31 20:00 RBC (4.30-5.90) m/uL Hgb (13.0-17.5) gm/dL Hct (39.0-53.0) % MCV (80.0-100.0) fL Sodium (137-145) mmol/L Glucose (74-99) mg/dL POC Glucose (mg/dL) 303 H 328 H 304 H (70-110) mg/dL Total Protein (6.3-8.2) g/dL Albumin (3.5-5.0) g/dL 08/24/23 08/24/23 08/24/23 Range/Units 05:59 05:59 06:34 RBC 3.11 L (4.30-5.90) m/uL Hgb 10.5 L (13.0-17.5) gm/dL Hct 31.2 L (39.0-53.0) % MCV 100.2 H (80.0-100.0) fL Sodium 136 L (137-145) mmol/L Glucose 293 H (74-99) mg/dL POC Glucose (mg/dL) 332 H (70-110) mg/dL Total Protein 5.7 L (6.3-8.2) g/dL Albumin 3.3 L (3.5-5.0) g/dL Microbiology - Last 24 Hours (Table) 08/21/23 12:53 Gram Stain - Preliminary Back Tissue Culture - Preliminary 08/21/23 12:55 Gram Stain - Final Back Wound Culture - Final 08/21/23 12:54 Gram Stain - Final Back Wound Culture - Final Assessment and Plan Assessment: Postop day #3, status post L3-L4, L5-S1 interbody fusion, same level neural decompression, cage placement, insertion of a biomechanical device, removal of segmental hardware, and exploration of fusion, L4-S1. Postoperative hypotension, and mental status changes, all resolved. History of hypertension. History of diabetes mellitus. Prior history of back surgery. History of hyperlipidemia. Chronic back pain. Plan: Plan dated 08/22/2023. The patient is seen in the intensive care unit. He was accepted into the intensive care unit yesterday, when after surgery, the patient had hypotension, and mental status changes. The patient was placed on BiPAP, for respiratory support, and dopamine for hemodynamic support. Currently, the patient is seen in room 252. He is currently on room air. She's getting lactated Ringer's at 20 mL an hour. He's no longer requiring BiPAP, or dopamine. Labs, x-rays, and medications are reviewed. The patient is stable for transfer out of the intensive care unit. Plan dated 08/23/2023. The patient is seen today in room 252. He's currently on room air. He's not receiving any IV fluids. Labs, x-rays, and medications are reviewed. The patient had an uneventful night according to the nurse. The patient denies any shortness of breath, difficulty breathing, cough, wheezing, or phlegm product ion. The patient also denies any chest pain or chest discomfort. His respiratory hemodynamic status is stable. From my perspective, the patient could be transferred out to the general medical floor. He does not need telemetry in my opinion. Culture data is negative or pending. Plan dated 08/24/2023. 58-year-old male seen in room 252. The patient is postop day #3. The patient is doing well. He's currently on room air. No IV fluids. Orthopedic surgeries when he for the patient to have a bowel movement before discharge. Labs, x- rays, medications are reviewed. The patient had an uneventful night according to the nurse. We will continue to follow the patient, make recommendations a long the way. His respiratory status, and cardiovascular status are both stable. Time with Patient: Less than 30
[2023-08-24 11:18] LABS: Glucose,Whole Blood 259 mg/dL (70-110)
[2023-08-24] MEDS ORDERED: INSULIN ASPART (NovoLOG) 100 UNIT/ML VIAL SQ SCH (12:30)
[2023-08-24] MEDS ORDERED: INSULIN DETEMIR (LEVEMIR) 100 UNIT/ML SYR SQ SCH (21:00)
== END 2023-08-24 15:26 | disposition home or self-care (01) | DRG 453 ==
LOC: 2ORMAIN 06:30 → 4SSUR 13:52 → 2SICU 13:57
PROVIDERS: ADMIT Orthopaedic Surgery; ATTEND Orthopaedic Surgery
PROC: 0SG0071 Fusion of Lumbar Vertebral Joint with Autologous Tissue Substitute, Posterior Approach, Posterior Column, Open Approach (ICD-10-PCS; 2023-08-21)
PROC: 0SG30AJ Fusion of Lumbosacral Joint with Interbody Fusion Device, Posterior Approach, Anterior Column, Open Approach (ICD-10-PCS; 2023-08-21)
PROC: 0SG3071 Fusion of Lumbosacral Joint with Autologous Tissue Substitute, Posterior Approach, Posterior Column, Open Approach (ICD-10-PCS; 2023-08-21)
PROC: 01NR0ZZ Release Sacral Nerve, Open Approach (ICD-10-PCS; 2023-08-21)
PROC: 0ST20ZZ Resection of Lumbar Vertebral Disc, Open Approach (ICD-10-PCS; 2023-08-21)
PROC: 0SH804Z Insertion of Internal Fixation Device into Left Sacroiliac Joint, Open Approach (ICD-10-PCS; 2023-08-21)
PROC: 0SH704Z Insertion of Internal Fixation Device into Right Sacroiliac Joint, Open Approach (ICD-10-PCS; 2023-08-21)
PROC: 0ST40ZZ Resection of Lumbosacral Disc, Open Approach (ICD-10-PCS; 2023-08-21)
PROC: 01N80ZZ Release Thoracic Nerve, Open Approach (ICD-10-PCS; 2023-08-21)
PROC: 0QP104Z Removal of Internal Fixation Device from Sacrum, Open Approach (ICD-10-PCS; 2023-08-21)
PROC: 0QP004Z Removal of Internal Fixation Device from Lumbar Vertebra, Open Approach (ICD-10-PCS; 2023-08-21)
PROC: 4A11X4G Monitoring of Peripheral Nervous Electrical Activity, Intraoperative, External Approach (ICD-10-PCS; 2023-08-21)
PROC: 8E0WXBG Computer Assisted Procedure of Trunk Region, With Computerized Tomography (ICD-10-PCS; 2023-08-21)
PROC: 0SG00AJ Fusion of Lumbar Vertebral Joint with Interbody Fusion Device, Posterior Approach, Anterior Column, Open Approach (ICD-10-PCS; principal; 2023-08-21 08:00)
DX: M48.061 Spinal stenosis, lumbar region without neurogenic claudication (principal); J96.02 Acute respiratory failure with hypercapnia; E87.29 Other acidosis; M51.36 Other intervertebral disc degeneration, lumbar region; R53.1 Weakness; E78.5 Hyperlipidemia, unspecified; I10 Essential (primary) hypertension; E11.610 Type 2 diabetes mellitus with diabetic neuropathic arthropathy; I25.10 Atherosclerotic heart disease of native coronary artery without angina pectoris; I95.9 Hypotension, unspecified; G89.29 Other chronic pain; M21.371 Foot drop, right foot; I25.2 Old myocardial infarction; F17.210 Nicotine dependence, cigarettes, uncomplicated; Z79.82 Long term (current) use of aspirin; Z79.4 Long term (current) use of insulin; Z79.899 Other long term (current) drug therapy; Z95.1 Presence of aortocoronary bypass graft; Z98.1 Arthrodesis status
CPT/HCPCS: 71045; 72100; 72131; 80048; 80053; 82565; 83036; 83735; 84520; 85025; 85027; 86891; 87070; 87075; 87102; 87116; 87205; 87206; 94660

== ENCOUNTER → 2024-01-03 | Outpatient (CLI) | payer BC ==
--- NOTE | 2024-01-03 15:58 | US ---
EXAMINATION TYPE: US kidneys/renal and bladder DATE OF EXAM: 01/03/2024 COMPARISON: NONE CLINICAL INDICATION: Male, 58 years old with history of N28.9 DISORDER OF KIDNEY AND URETER, NEPHROPA THY; CKD EXAM MEASUREMENTS: Right Kidney: 14.6 x 6.3 x 5.2 cm Left Kidney: 13.5 x 7.4 x 6.1 cm Right Kidney: Hypoechoic area noted with posterior enhancement measuring 2.4 x 1.9 x 2.3 cm Left Kidney: Cystic areas measuring 1). 2.3 x 2.3 x 2.0 cm and 2). 2.3 x 2.1 x 2.3 cm Bladder: non-distended Bilateral Jets seen: No IMPRESSION: 1. No evidence of obstructive uropathy. 2. Bilateral renal cysts.
== END | disposition home or self-care (01) ==
LOC: RADUSWWP 14:55
PROVIDERS: ATTEND Family Medicine
DX: N28.1 Cyst of kidney, acquired (principal); N28.9 Disorder of kidney and ureter, unspecified
CPT/HCPCS: 76770

== ENCOUNTER → 2024-07-01 | Outpatient (CLI) | payer BC ==
[2024-07-01 09:15] LABS: Basophils % (A) 1 %; Eosinophils # (A) 0.1 k/uL (0-0.7); Eosinophils % (A) 2 %; HCT 42.2 % (39.0-53.0); Lymphocytes # (A) 1.8 k/uL (1.0-4.8); Lymphocytes % (A) 22 %; MCHC 33.2 g/dL (31.0-37.0); MCV 102.2 fL (80.0-100.0); Macrocytosis Slight; Mean Platelet Volume 7.4; Monocytes # (A) 0.6 k/uL (0-1.0); Monocytes % (A) 7 %; Neutrophils # (A) 5.7 k/uL (1.3-7.7); Neutrophils % (A) 68 %; Platelet Count 332 k/uL (150-450); RBC 4.13 m/uL (4.30-5.90); RDW 12.9 % (11.5-15.5); WBC 8.5 k/uL (3.8-10.6)
[2024-07-01 09:25] LABS: African American GFR (CKD) 72 (>60 ml/min/1.73 sqM); Anion Gap 7 mmol/L; Blood Urea Nitrogen 26 mg/dL (9-20); Carbon Dioxide 28 mmol/L (22-30); Chloride 103 mmol/L (98-107); Non-African American GFR(CKD) 62 (>60 ml/min/1.73 sqM); Potassium 4.8 mmol/L (3.5-5.1); Sodium 138 mmol/L (137-145)
[2024-07-01 09:27] LABS: INR 0.9 (<1.2); Partial Thromboplastin Time 23.5 sec (22.0-30.0)
== END | disposition home or self-care (01) ==
LOC: LABWHC1 08:14
PROVIDERS: ATTEND Internal Medicine
DX: N18.1 Chronic kidney disease, stage 1 (principal)
CPT/HCPCS: 36415; 80051; 82565; 84520; 85025; 85610; 85730; 86850; 86900; 86901

== ENCOUNTER 2024-07-03 07:46 | Day surgery (SDC) | payer BC ==
[2024-07-03] MEDS ORDERED: HYDROmorphone 0.5 MG/0.5 ML SYRINGE IVP PRN (08:28)
[2024-07-03] MEDS ORDERED: ALPRAZolam 0.25 MG TAB PO PRN (08:28)
[2024-07-03 08:56] LABS: Glucose,Whole Blood 223 mg/dL (70-110)
[2024-07-03] MEDS: ALPRAZolam 0.5 MG TAB PO STA (09:12)
[2024-07-03] MEDS: DESMOPRESSIN ACETATE 32 MCG in SODIUM CHLORIDE 0.9% 50 ML IVPB STA (09:37)
[2024-07-03 10:04] VITALS: RESP 18; TEMP 98
[2024-07-03 10:57] LABS: Glucose,Whole Blood 254 mg/dL (70-110)
--- NOTE | 2024-07-03 11:53 | CT ---
EXAMINATION TYPE: CT biopsy renal LT DATE OF EXAM: 07/03/2024 10:49 AM CLINICAL INDICATION:Male, 59 years old with history of N18.1 CHRONIC KIDNEY DISEASE, STAGE 1, Z72.0; left renal bx COMPARISON: 12/03/2018 CT DLP: 1257 mGycm, Automated exposure control for dose reduction was used. Contrast used: mL of , none Oral contrast used: none ATTENDING: Dr. Jose Carlos Jimenez TECHNIQUE: CT guided percutaneous left kidney measuring about using coaxial method. One or more CT dose reductio n strategies were utilized during this examination. Total CT dose 1257 mGycm. FINDINGS: The procedure was explained to the patient including risks of bleeding, bruising, infection, damage t o nearby organs and need for additional therapy including potential surgery. All questions were answ ered and consent was obtained. The previous studies were reviewed. The patient was placed on the CT couch in the supine position. The overlying skin was marked and prepped using sterile method. Timeout was taken per protocol. Follo wing administration of local anesthesia a 19 gauge coaxial needle was introduced on the left kidney. The coaxial needle tip was directed into the kidney cord with CT guidance. Multiple 20 gauge coaxia l biopsies were then obtained. Following the procedure the needle was removed and sterile dressing was applied to the percutaneous site. Post biopsy imaging demonstrated no evidence of hemorrhage. P atient was taken for postprocedure observation in stable condition. IMPRESSIONS: Status post percutaneous left renal cortex biopsy as described above. Pathology results pending. [facility], , 07/03/2024 11:50 AM
[2024-07-03 12:35] VITALS: PULSE 55
[2024-07-03 13:56] VITALS: BP 107/58
== END 2024-07-03 13:56 | disposition home or self-care (01) ==
LOC: RADPROMAIN 07:46
PROVIDERS: ATTEND Internal Medicine Nephrology
DX: N18.1 Chronic kidney disease, stage 1 (principal); Z72.0 Tobacco use
CPT/HCPCS: 36415; 50200; 77012; J2597

== ENCOUNTER 2025-02-24 02:51 | Observation (INO) | payer BC ==
--- NOTE | 2025-02-24 03:48 | ED ---
General Adult HPI - General Chief complaint: Weakness Stated complaint: Weakness Time Seen by Provider: 02/24/25 02:58 Source: patient, EMS Mode of arrival: EMS Limitations: no limitations - History of Present Illness Initial comments: This patient is a 59-year-old man with history of chronic back pain who presents to have evaluation for generalized weakness. He notes that over the past 3 to 4 days he has had a number of bowel movements that he is characterizing his diarrhea. He states that he has also been getting progressive generalized weakness. Today states he had the urge to have bowel movement and then was just so weak he could not get out of bed. He ended up defecating in bed. That prompted him to seek attention here. There is not focal weakness. He has not had fever or chills. He is not having abdominal or perianal pain. He did have some nausea after dinner tonight but otherwise has not had nausea or vomiting. No dark tarry or bloody stools. Onset/Timin -: days(s) Severity scale (1-10): 0 Consistency: constant Improves with: none Worsens with: none Associated Symptoms: weakness Treatments Prior to Arrival: none - Related Data Home Medications Medication Instructions Recorded Confirmed Niacin [Niaspan] 1,000 mg PO HS 02/19/15 02/24/25 Insulin Lispro [humaLOG Kwikpen] 34 unit SQ AC-TID 03/08/18 02/24/25 Rosuvastatin [Crestor] 20 mg PO HS 03/08/18 02/24/25 Enalapril [Vasotec] 10 mg PO DAILY 04/22/21 02/24/25 Brimonidine Tartrate [Alphagan P 1 drops BOTH EYES BID 02/24/25 02/24/25 0.2% Ophth Soln] Ergocalciferol (Vitamin D2) 1,250 mcg PO Q7D 02/24/25 02/24/25 [Drisdol (GEQ) 1,250 MCG (50,000 IU)] Insulin Glargine,Hum.rec.anlog 85 units SQ HS 02/24/25 02/24/25 [Lantus Solostar Pen] Latanoprost [Latanoprost 0.005%] 1 drop BOTH EYES HS 02/24/25 02/24/25 Magnesium Oxide [Mag-Ox] 400 mg PO BID 02/24/25 02/24/25 Pregabalin [Lyrica] 150 mg PO BID 02/24/25 02/24/25 Ranolazine [Ranexa] 1,000 mg PO BID 02/24/25 02/24/25 tadalafiL 5 mg PO DAILY 02/24/25 02/24/25 Previous Rx's Medication Instructions Recorded Nicotine 21Mg/24Hr Patch [Habitrol] 1 patch TRANSDERM DAILY #30 patch 02/26/25 Allergies Allergy/AdvReac Type Severity Reaction Status Date / Time No Known Allergies Allergy Verified 02/24/25 03:03 Review of Systems ROS Statement: Those systems with pertinent positive or pertinent negative responses have been documented in the HPI. ROS Other: All systems not noted in ROS Statement are negative. Constitutional: Reports: weakness. Denies: fever, chills Respiratory: Denies: cough, dyspnea Cardiovascular: Denies: chest pain, palpitations, edema Gastrointestinal: Reports: as per HPI, nausea, diarrhea. Denies: abdominal pain, vomiting, constipation, melena, hematochezia Genitourinary: Denies: as per HPI, dysuria, hematuria Musculoskeletal: Denies: back pain Skin: Denies: rash Neurological: Denies: headache, weakness, numbness Past Medical History Past Medical History: Coronary Artery Disease (CAD), Diabetes Mellitus, Hyperlipidemia, Hypertension, Myocardial Infarction ([place]), Renal Disease Additional Past Medical History / Comment(s): Burling disc in back, [place] x3, Last Myocardial Infarction Date:: 2010 History of Any Multi-Drug Resistant Organisms: None Reported Past Surgical History: Back Surgery, Coronary Bypass/CABG, Heart Catheterization With Stent, Tonsillectomy Additional Past Surgical History / Comment(s): EGD, EXCISION OF ABSCESS, bone biopsy 04/2021, April 06 bone replaced in toe. stent placements, CABG 2005, back surgery x 2 in 2022 walks with cane, Left ulnar surgery Past Anesthesia/Blood Transfusion Reactions: No Reported Reaction Date of Last Stent Placement:: 2010 Past Psychological History: No Psychological Hx Reported Smoking Status: Current every day smoker Past Alcohol Use History: Daily Past Drug Use History: None Reported - Past Family History Father Family Medical History: Diabetes Mellitus Mother Family Medical History: Cancer, CVA/TIA General Exam General appearance: alert, in no apparent distress Head exam: Present: atraumatic, normocephalic Eye exam: Present: normal appearance. Absent: scleral icterus, conjunctival injection ENT exam: Present: normal oropharynx Neck exam: Present: normal inspection Respiratory exam: Present: normal lung sounds bilaterally. Absent: respiratory distress, wheezes, rales, rhonchi, stridor, accessory muscle use Cardiovascular Exam: Present: regular rate, normal rhythm, normal heart sounds. Absent: systolic murmur, diastolic murmur, rubs, gallop GI/Abdominal exam: Present: soft, normal bowel sounds. Absent: distended, tenderness, guarding, rebound, rigid, mass, pulsatile mass, hernia Extremities exam: Present: normal inspection, normal capillary refill. Absent: pedal edema, calf tenderness Back exam: Present: normal inspection. Absent: CVA tenderness (R), CVA tenderness (L) Neurological exam: Present: alert Skin exam: Present: warm, dry, intact, normal color. Absent: rash Course Vital Signs 02/24/25 02/24/25 02/24/25 02:59 03:04 04:42 Temperature 97.7 F Pulse Rate 78 80 Pulse Rate [ 77 Right Supine Radial] Respiratory 18 18 Rate Blood Pressure 86/68 102/65 Blood Pressure [Right Arm] O2 Sat by Pulse 97 97 Oximetry 02/24/25 02/24/25 02/24/25 07:36 09:00 10:42 Temperature Pulse Rate 83 81 78 Pulse Rate [ Right Supine Radial] Respiratory 20 20 20 Rate Blood Pressure 140/83 153/79 142/75 Blood Pressure [Right Arm] O2 Sat by Pulse 98 98 97 Oximetry 02/24/25 02/24/25 02/24/25 14:27 18:00 19:50 Temperature 97.4 F L Pulse Rate 78 77 Pulse Rate [ 76 Right Supine Radial] Respiratory 20 20 16 Rate Blood Pressure 145/74 123/81 Blood Pressure 119/74 [Right Arm] O2 Sat by Pulse 97 97 96 Oximetry EKG Findings - EKG Results: EKG: interpreted by KRISTINA, sinus rhythm (Rate 80 bpm), normal axis, normal ST/T - IN, Pacemaker, Normal: Myocardial infarction: inferior IN (old age indeterminate) Medical Decision Making - Medical Decision Making Was pt. sent in by a medical professional or institution (, PA, VENDING MACHINE TECHNICIAN, urgent care, hospital, or [facility]...) When possible be specific @ -[No] Did you speak to anyone other than the patient for history (EMS, parent, family, police, friend...)? What history was obtained from this source @ -[No] Did you review nursing and triage notes (agree or disagree)? Why? @ -[I reviewed and agree with nursing and triage notes] Were old charts reviewed (outside hosp., previous admission, EMS record, old EKG, old radiological studies, urgent care reports/EKG's, [facility] records)? Report findings @ -[No old charts were reviewed] Differential Diagnosis (chest pain, altered mental status, abdominal pain women, abdominal pain men, vaginal bleeding, weakness, fever, dyspnea, syncope, headache, dizziness, GI bleed, back pain, seizure, CVA, palpatations, mental he alth, musculoskeletal)? @ -[Differential Abdominal Pain Men: Appendicitis, cholecystitis, diverticulosis, ischemic bowel, pancreatitis, hepatitis, UTI, gastroenteritis, AAA, incarcerated hernia, bowel obstruction, constipation, inflammatory bowel, hepatitis, peptic ulcer disease, splenic infarction, perforated viscus, testicular torsion, this is not meant to be an all-inclusive list EKG interpreted by me (3pts min.). @ -[As above] X-rays interpreted by me (1pt min.). @ -[None done] CT interpreted by me (1pt min.). @ -[None done] U/S interpreted by me (1pt. min.). @ -[None done] What testing was considered but not performed or refused? (CT, X-rays, U/S, labs)? Why? @ -[None] What meds were considered but not given or refused? Why? @ -[None] Did you discuss the management of the patient with other professionals (professionals i.e. , PA, VENDING MACHINE TECHNICIAN, lab, RT, psych nurse, social media marketing specialist, software recruiter, teacher, gift officer, supervisor case loading)? Give summary @ -[Case discussed with admitting physician and treatment recommendations incorporated Was smoking cessation discussed for >3mins.? @ -[No] Was critical care preformed (if so, how long)? @ -[No] Were there social determinants of health that impacted care today? How? (Homelessness, low income, unemployed, alcoholism, drug addiction, tr ansportation, low edu. Level, literacy, decrease access to med. care, half-way, rehab)? @ -[No] Was there de-escalation of care discussed even if they declined (Discuss DNR or withdrawal of care, Hospice)? DNR status @ -[No] What co-morbidities impacted this encounter? (DM, HTN, Smoking, COPD, CAD, Ca ncer, CVA, ARF, Chemo, Hep., AIDS, mental health diagnosis, sleep apnea, morbid obesity)? @ -[None] Was patient admitted / discharged? Hospital course, mention meds given and route, prescriptions, significant lab abnormalities, going to OR and other pertinent info. @ -Patient is 59-year-old man presenting with profuse diarrhea. The patient evaluation does show acute renal failure, and the patient will be admitted for IV hydration, to follow kidney function to ensure that there is no underlying kidney disease that this is indeed just dehydration. Also patient covered with [facility] protocol for alcohol withdrawal Undiagnosed new problem with uncertain prognosis? @ -[No] Drug Therapy requiring intensive monitoring for toxicity (Heparin, Nitro, Insulin, Cardizem)? @ -[No] Were any procedures done? @ -[No] Diagnosis/symptom? @ -[Acute kidney injury Dehydration Alcohol withdrawal Acute, or Chronic, or Acute on Chronic? @ -[Acute Uncomplicated (without systemic symptoms) or Complicated (systemic symptoms)? @ -[Uncomplicated Side effects of treatment? @ -[No] Exacerbation, Progression, or Severe Exacerbation? @ -[No] Poses a threat to life or bodily function? How? (Chest pain, [place], [place], pneumonia, PE, COPD, DKA, ARF, appy, cholecystitis, CVA, Diverticulitis, Homicidal, Suicidal, threat to staff... and all critical care pts) @ -[No] All treatments are based on ideal body weight as in ED triage - Lab Data Result diagrams: 02/26/25 06:51 02/26/25 06:51 Lab Results 02/24/25 02/24/25 02/24/25 Range/Units 03:51 04:55 04:55 WBC 11.86 H (4.50-10.00) 10*3/uL RBC 4.19 L (4.40-5.60) 10*6/uL Hgb 15.3 (13.0-17.0) g/dL Hct 42.0 (39.6-50.0) % MCV 100.2 H (80.0-97.0) fL MCH 36.5 H (27.0-32.0) pg MCHC 36.4 (32.0-37.0) g/dL Plt Count 255 (140-440) 10*3/uL MPV 9.1 L (9.5-12.2) fL Immature Gran % (Auto) 0.6 % Neutrophils % 85.2 % Lymphocytes % 8.5 % Monocytes % 5.0 % Eosinophils % 0.5 % Basophils % 0.2 % Immature Gran # 0.07 H (0.00-0.04) 10*3/uL Neutrophils # 10.11 H (1.80-7.70) 10*3/uL Lymphocytes # 1.01 (0.90-5.00) 10*3/uL Monocytes # 0.59 (0.20-1.00) 10*3/uL Eosinophils # 0.06 (0.04-0.35) 10*3/uL Basophils # 0.02 (0.00-0.10) 10*3/uL PT 10.1 (10.0-12.5) sec INR 0.9 (<1.2) APTT 23.2 (22.0-30.0) sec Sodium (137-145) mmol/L Potassium (3.5-5.1) mmol/L Chloride (98-107) mmol/L Carbon Dioxide (22-30) mmol/L Anion Gap mmol/L BUN (9-20) mg/dL Creatinine (0.66-1.25) mg/dL Est GFR (CKD-EPI)AfAm (>60 ml/min/1.73 sqM) Est GFR (CKD-EPI)NonAf (>60 ml/min/1.73 sqM) Glucose (74-99) mg/dL POC Glucose (mg/dL) 207 H (70-110) mg/dL POC Glu [employer] ID Kelvin Amenda Plasma Lactic Acid [place] (0.7-2.0) mmol/L Calcium (8.4-10.2) mg/dL Magnesium (1.6-2.3) mg/dL Total Bilirubin (0.2-1.3) mg/dL AST (17-59) U/L ALT (4-49) U/L Alkaline Phosphatase (38-126) U/L Troponin I (0.000-0.034) ng/mL Total Protein (6.3-8.2) g/dL Albumin (3.5-5.0) g/dL 02/24/25 02/24/25 02/24/25 Range/Units 04:55 04:55 04:55 WBC (4.50-10.00) 10*3/uL RBC (4.40-5.60) 10*6/uL Hgb (13.0-17.0) g/dL Hct (39.6-50.0) % MCV (80.0-97.0) fL MCH (27.0-32.0) pg MCHC (32.0-37.0) g/dL Plt Count (140-440) 10*3/uL MPV (9.5-12.2) fL Immature Gran % (Auto) % Neutrophils % % Lymphocytes % % Monocytes % % Eosinophils % % Basophils % % Immature Gran # (0.00-0.04) 10*3/uL Neutrophils # (1.80-7.70) 10*3/uL Lymphocytes # (0.90-5.00) 10*3/uL Monocytes # (0.20-1.00) 10*3/uL Eosinophils # (0.04-0.35) 10*3/uL Basophils # (0.00-0.10) 10*3/uL PT (10.0-12.5) sec INR (<1.2) APTT (22.0-30.0) sec Sodium 136 L (137-145) mmol/L Potassium 4.6 (3.5-5.1) mmol/L Chloride 102 (98-107) mmol/L Carbon Dioxide 21 L (22-30) mmol/L Anion Gap 13 mmol/L BUN 25 H (9-20) mg/dL Creatinine 1.91 H (0.66-1.25) mg/dL Est GFR (CKD-EPI)AfAm 43 (>60 ml/min/1.73 sqM) Est GFR (CKD-EPI)NonAf 38 (>60 ml/min/1.73 sqM) Glucose 194 H (74-99) mg/dL POC Glucose (mg/dL) (70-110) mg/dL POC Glu [employer] ID Plasma Lactic Acid [place] 1.2 (0.7-2.0) mmol/L Calcium 9.9 (8.4-10.2) mg/dL Magnesium 2.2 (1.6-2.3) mg/dL Total Bilirubin 0.7 (0.2-1.3) mg/dL AST 21 (17-59) U/L ALT 13 (4-49) U/L Alkaline Phosphatase 84 (38-126) U/L Troponin I <0.012 (0.000-0.034) ng/mL Total Protein 6.6 (6.3-8.2) g/dL Albumin 4.0 (3.5-5.0) g/dL Disposition Clinical Impression: Abdominal pain, Acute kidney injury, Diarrhea, Dehydration Disposition: ADMITTED IP TO THIS HOSP Condition: Fair Is patient prescribed a controlled substance at d/c from ED?: No
[2025-02-24 03:54] LABS: Glucose,Whole Blood 207 mg/dL (70-110)
[2025-02-24 05:12] LABS: Basophils # (A) 0.02 10*3/uL (0.00-0.10); Basophils % (A) 0.2 %; Eosinophils # (A) 0.06 10*3/uL (0.04-0.35); Eosinophils % (A) 0.5 %; HGB 15.3 g/dL (13.0-17.0); Lymphocytes # (A) 1.01 10*3/uL (0.90-5.00); Lymphocytes % (A) 8.5 %; MCH 36.5 pg (27.0-32.0); MCHC 36.4 g/dL (32.0-37.0); MCV 100.2 fL (80.0-97.0); Mean Platelet Volume 9.1 fL (9.5-12.2); Monocytes # (A) 0.59 10*3/uL (0.20-1.00); Neutrophils # (A) 10.11 10*3/uL (1.80-7.70); Neutrophils % (A) 85.2 %; Platelet Count 255 10*3/uL (140-440); RBC 4.19 10*6/uL (4.40-5.60); RDW 12.5 % (11.5-14.5); WBC 11.86 10*3/uL (4.50-10.00)
[2025-02-24 05:22] LABS: INR 0.9 (<1.2); Partial Thromboplastin Time 23.2 sec (22.0-30.0); Prothrombin Time 10.1 sec (10.0-12.5)
[2025-02-24 05:50] LABS: ALT 13 U/L (4-49); AST 21 U/L (17-59); African American GFR (CKD) 43 (>60 ml/min/1.73 sqM); Alkaline Phosphatase 84 U/L (38-126); Anion Gap 13 mmol/L; Blood Urea Nitrogen 25 mg/dL (9-20); Calcium 9.9 mg/dL (8.4-10.2); Carbon Dioxide 21 mmol/L (22-30); Chloride 102 mmol/L (98-107); Glucose 194 mg/dL (74-99); Magnesium 2.2 mg/dL (1.6-2.3); Non-African American GFR(CKD) 38 (>60 ml/min/1.73 sqM); Potassium 4.6 mmol/L (3.5-5.1); Sodium 136 mmol/L (137-145); Total Bilirubin 0.7 mg/dL (0.2-1.3); Total Protein 6.6 g/dL (6.3-8.2)
[2025-02-24] MEDS ORDERED: ACETAMINOPHEN TAB 325 MG TAB PO PRN (07:13)
[2025-02-24] MEDS ORDERED: NALOXONE 0.4 MG/ML 1 ML VIAL IV PRN (07:13)
[2025-02-24] MEDS: SODIUM CHLORIDE 0.9% 1,000 ML IV STA (07:36)
[2025-02-24] MEDS: SODIUM CHLORIDE 0.9% 1,000 ML IV ONE (07:36)
[2025-02-24] MEDS: FAMOTIDINE 20 MG TAB PO SCH (09:19)
[2025-02-24 10:51] LABS: Appearance,Urine Cloudy (Clear); Bacteria,Urine Rare /hpf; Bilirubin,Urine Negative (Negative); Blood,Urine Negative (Negative); Color,Urine Yellow; Glucose,Urine (UA) Negative (Negative); Hyaline Casts,Urine 25 /lpf (0-2); Ketones,Urine Negative (Negative); Leukocyte Esterase,Urine Trace (Negative); Mucus,Urine Rare /hpf; Nitrite,Urine Negative (Negative); PH, Urine 5.5 (5.0-8.0); Protein,Urine 2+ (Negative); RBC,Urine 1 /hpf (0-5); Specific Gravity,Urine 1.014 (1.001-1.035); Urobilinogen,Urine <2.0 mg/dL (<2.0); WBC,Urine 9 /hpf (0-5)
[2025-02-24] MEDS ORDERED: LORazepam 1 MG TAB PO PRN ×3 (11:18)
[2025-02-24] MEDS ORDERED: LORazepam 0.5 MG TAB PO PRN (11:18)
--- NOTE | 2025-02-24 11:30 | P.HPIM ---
History of Present Illness Patient is a 59-year-old male came in complaints of generalized weakness has been going on for few days patient was also having diarrhea diarrhea at this time resolved. Patient denied any significant abdominal pain dysuria. Patient is found to have acute renal failure with creatinine going up to 1.9 baseline appears to be 1.2 patient does have chronic kidney disease stage II at baseline. Patient does have diabetic peripheral neuropathy for which patient is on pregabalin and patient is on very low high doses of insulin. Upon further questioning patient admits to drinking 3 cocktails every day patient appears to have be having withdrawals when I evaluated the patient. Extensive counseling was provided regarding alcohol cessation and patient is willing to quit alcohol. Patient also smokes about a pack of cigarettes per day. Patient does have history of coronary disease with stents in the past. REVIEW OF SYSTEMS: All other systems are negative except those mentioned in the HPI PHYSICAL EXAMINATION: GENERAL: The patient is alert and oriented x3, not in any acute distress. Well developed, well nourished. HEENT: Pupils are round and equally reacting to light. EOMI. No scleral icterus. No conjunctival pallor. Normocephalic, atraumatic. No pharyngeal erythema. No thyromegaly. CARDIOVASCULAR: S1 and S2 present. No murmurs, rubs, or gallops. PULMONARY: Chest is clear to auscultation, no wheezing or crackles. ABDOMEN: Soft, nontender, nondistended, normoactive bowel sounds. No palpable organomegaly. MUSCULOSKELETAL: No joint swelling or deformity. EXTREMITIES: No cyanosis, clubbing, or pedal edema. NEUROLOGICAL: Gross neurological examination did not reveal any focal deficits. SKIN: No rashes. Assessment and plan -Acute renal failure probably secondary to diarrhea diarrhea improved patient wi ll be continued on IV fluids patient was started on lactated Ringer's because of hyperchloremia we will recheck the kidney function tomorrow again. - Generalized weakness probably because of neuropathy and alcohol use PT and OT consultation. Patient will be resumed on pregabalin - Alcohol abuse: Counseling was provided - Alcohol withdrawals patient will be started on alcohol withdrawal precautions if he has any withdrawals patient was started on thiamine multivitamin supplementation patient has elevated MCV secondary to chronic use of alcohol - Coronary artery disease patient will be resumed on Ranexa aspirin and statin - Type 2 diabetes mellitus resumed on home regimen along with sliding scale - Hypertension: Patient is on lisinopril this is being held temporarily as his blood pressure was low can be restarted back if his blood pressure starts going up. - Obesity DVT prophylaxis: Subcutaneous heparin Past Medical History Past Medical History: Coronary Artery Disease (CAD), Diabetes Mellitus, Hyperlipidemia, Hypertension, Myocardial Infarction ([place]), Renal Disease Additional Past Medical History / Comment(s): Burling disc in back, [place] x3, Last Myocardial Infarction Date:: 2010 History of Any Multi-Drug Resistant Organisms: None Reported Past Surgical History: Back Surgery, Coronary Bypass/CABG, Heart Catheterization With Stent, Tonsillectomy Additional Past Surgical History / Comment(s): EGD, EXCISION OF ABSCESS, bone biopsy 04/2021, April 06 bone replaced in toe. stent placements, CABG 2005, back surgery x 2 in 2022 walks with cane, Left ulnar surgery Past Anesthesia/Blood Transfusion Reactions: No Reported Reaction Date of Last Stent Placement:: 2010 Past Psychological History: No Psychological Hx Reported Smoking Status: Current every day smoker Past Alcohol Use History: Daily Past Drug Use History: None Reported - Past Family History Father Family Medical History: Diabetes Mellitus Mother Family Medical History: Cancer, CVA/TIA Medications and Allergies Home Medications Medication Instructions Recorded Confirmed Type Niacin [Niaspan] 1,000 mg PO HS 02/19/15 02/24/25 History Insulin Lispro [humaLOG Kwikpen] 34 unit SQ AC-TID 03/08/18 02/24/25 History Rosuvastatin [Crestor] 20 mg PO HS 03/08/18 02/24/25 History Enalapril [Vasotec] 10 mg PO DAILY 04/22/21 02/24/25 History Brimonidine Tartrate [Alphagan P 1 drops BOTH EYES BID 02/24/25 02/24/25 History 0.2% Ophth Soln] Ergocalciferol (Vitamin D2) 1,250 mcg PO Q7D 02/24/25 02/24/25 History [Drisdol (GEQ) 1,250 MCG (50,000 IU)] Insulin Glargine,Hum.rec.anlog 85 units SQ HS 02/24/25 02/24/25 History [Lantus Solostar Pen] Latanoprost [Latanoprost 0.005%] 1 drop BOTH EYES HS 02/24/25 02/24/25 History Magnesium Oxide [Mag-Ox] 400 mg PO BID 02/24/25 02/24/25 History Pregabalin [Lyrica] 150 mg PO BID 02/24/25 02/24/25 History Ranolazine [Ranexa] 1,000 mg PO BID 02/24/25 02/24/25 History tadalafiL 5 mg PO DAILY 02/24/25 02/24/25 History Allergies Allergy/AdvReac Type Severity Reaction Status Date / Time No Known Allergies Allergy Verified 02/24/25 03:03 Physical Exam Vitals: Vital Signs Temp Pulse Pulse Resp BP Pulse Ox 02/24/25 10:42 78 20 142/75 97 02/24/25 09:00 81 20 153/79 98 02/24/25 07:36 83 20 140/83 98 02/24/25 04:42 80 18 102/65 97 02/24/25 03:04 77 02/24/25 02:59 97.7 F 78 18 86/68 97 Intake and Output 02/23/25 02/24/25 02/24/25 22:59 06:59 14:59 Other: Weight 108.862 kg Results CBC & Chem 7: 02/24/25 04:55 02/24/25 04:55 Labs: Abnormal Lab Results - Last 24 Hours (Table) 02/24/25 02/24/25 02/24/25 Range/Units 03:51 04:55 04:55 WBC 11.86 H (4.50-10.00) 10*3/uL RBC 4.19 L (4.40-5.60) 10*6/uL MCV 100.2 H (80.0-97.0) fL MCH 36.5 H (27.0-32.0) pg MPV 9.1 L (9.5-12.2) fL Immature Gran # 0.07 H (0.00-0.04) 10*3/uL Neutrophils # 10.11 H (1.80-7.70) 10*3/uL Sodium 136 L (137-145) mmol/L Carbon Dioxide 21 L (22-30) mmol/L BUN 25 H (9-20) mg/dL Creatinine 1.91 H (0.66-1.25) mg/dL Glucose 194 H (74-99) mg/dL POC Glucose (mg/dL) 207 H (70-110) mg/dL Urine Protein (Negative) Ur Leukocyte Esterase (Negative) Urine WBC (0-5) /hpf Urine Bacteria (None) /hpf Hyaline Casts (0-2) /lpf Urine Mucus (None) /hpf 02/24/25 Range/Units 10:27 WBC (4.50-10.00) 10*3/uL RBC (4.40-5.60) 10*6/uL MCV (80.0-97.0) fL MCH (27.0-32.0) pg MPV (9.5-12.2) fL Immature Gran # (0.00-0.04) 10*3/uL Neutrophils # (1.80-7.70) 10*3/uL Sodium (137-145) mmol/L Carbon Dioxide (22-30) mmol/L BUN (9-20) mg/dL Creatinine (0.66-1.25) mg/dL Glucose (74-99) mg/dL POC Glucose (mg/dL) (70-110) mg/dL Urine Protein 2+ H (Negative) Ur Leukocyte Esterase Trace H (Negative) Urine WBC 9 H (0-5) /hpf Urine Bacteria Rare H (None) /hpf Hyaline Casts 25 H (0-2) /lpf Urine Mucus Rare H (None) /hpf
[2025-02-24] MEDS: MULTIVITAMINS, THERA 1 EACH TAB PO SCH (12:03)
[2025-02-24] MEDS: FOLIC ACID 1 MG TAB PO SCH (12:03)
[2025-02-24] MEDS: ASPIRIN 81 MG PO SCH (12:35)
[2025-02-24] MEDS: RANOLAZINE 500 MG TAB.ER.12H PO SCH (12:35)
[2025-02-24 12:36] LABS: Glucose,Whole Blood 152 mg/dL (70-110)
[2025-02-24] MEDS: PREGABALIN 75 MG CAP PO SCH (12:36)
[2025-02-24] MEDS: INSULIN LISPRO (HumaLOG) 100 UNIT/ML 10 mL VL SQ SCH ×2 (12:38)
[2025-02-24] MEDS: LACTATED RINGERS 1,000 ML IV SCH (12:39)
[2025-02-24] MEDS: NICOTINE 21MG/24HR PATCH TRANSDERM SCH (12:46)
[2025-02-24] MEDS: HEPARIN SODIUM,PORCINE 5,000 UNIT/ML 1 ML VIAL SQ SCH (15:17)
[2025-02-24 17:12] LABS: Glucose,Whole Blood 156 mg/dL (70-110)
[2025-02-24 20:38] LABS: Glucose,Whole Blood 150 mg/dL (70-110)
[2025-02-24] MEDS: MAGNESIUM OXIDE 400 MG TAB PO SCH (20:42)
[2025-02-24] MEDS: LATANOPROST 0.005% OPHTH DROPS 2.5 ML BTL BOTH EYES SCH (20:42)
[2025-02-24] MEDS: INSULIN GLARGINE (LANTUS) 100 UNIT/ML SYR SQ SCH (20:43)
[2025-02-24] MEDS: ATORVASTATIN 40 MG TAB PO SCH (20:43)
[2025-02-24] MEDS: BRIMONIDINE TARTRATE 0.2% DROPS 5 ML BTL BOTH EYES SCH (20:47)
[2025-02-24] MEDS ORDERED: chlordiazePOXIDE 25 MG CAP PO SCH (21:00)
[2025-02-25 06:28] LABS: Glucose,Whole Blood 199 mg/dL (70-110)
[2025-02-25 07:19] LABS: African American GFR (CKD) 62 (>60 ml/min/1.73 sqM); Anion Gap 7 mmol/L; Blood Urea Nitrogen 22 mg/dL (9-20); Calcium 8.9 mg/dL (8.4-10.2); Carbon Dioxide 24 mmol/L (22-30); Chloride 106 mmol/L (98-107); Glucose 186 mg/dL (74-99); Non-African American GFR(CKD) 54 (>60 ml/min/1.73 sqM); Potassium 4.2 mmol/L (3.5-5.1); Sodium 137 mmol/L (137-145)
[2025-02-25 07:29] LABS: HCT 43.3 % (39.6-50.0); HGB 15.2 g/dL (13.0-17.0); MCH 35.3 pg (27.0-32.0); MCHC 35.1 g/dL (32.0-37.0); MCV 100.7 fL (80.0-97.0); Mean Platelet Volume 9.4 fL (9.5-12.2); Platelet Count 198 10*3/uL (140-440); WBC 6.08 10*3/uL (4.50-10.00)
[2025-02-25] MEDS: THIAMINE 100 MG TAB PO SCH (09:23)
[2025-02-25 11:13] LABS: Glucose,Whole Blood 68 mg/dL (70-110)
[2025-02-25 11:51] LABS: Glucose,Whole Blood 52 mg/dL (70-110)
[2025-02-25 12:47] LABS: Glucose,Whole Blood 123 mg/dL (70-110)
[2025-02-25 16:45] LABS: Glucose,Whole Blood 232 mg/dL (70-110)
[2025-02-25] MEDS: INSULIN LISPRO (HumaLOG) 100 UNIT/ML 10 mL VL SQ SCH (16:51)
[2025-02-25 19:34] LABS: Glucose,Whole Blood 274 mg/dL (70-110)
[2025-02-26 00:10] LABS: Glucose,Whole Blood 133 mg/dL (70-110)
[2025-02-26 02:40] VITALS: RESP 16
[2025-02-26 06:09] LABS: Glucose,Whole Blood 170 mg/dL (70-110)
[2025-02-26 07:22] LABS: Basophils # (A) 0.04 10*3/uL (0.00-0.10); Basophils % (A) 0.5 %; Eosinophils % (A) 2.4 %; HCT 38.3 % (39.6-50.0); HGB 13.6 g/dL (13.0-17.0); Lymphocytes # (A) 2.46 10*3/uL (0.90-5.00); Lymphocytes % (A) 29.4 %; MCH 36.5 pg (27.0-32.0); MCHC 35.5 g/dL (32.0-37.0); MCV 102.7 fL (80.0-97.0); Mean Platelet Volume 9.6 fL (9.5-12.2); Monocytes # (A) 0.64 10*3/uL (0.20-1.00); Monocytes % (A) 7.6 %; Neutrophils # (A) 4.99 10*3/uL (1.80-7.70); Neutrophils % (A) 59.5 %; Platelet Count 232 10*3/uL (140-440); RBC 3.73 10*6/uL (4.40-5.60); RDW 12.9 % (11.5-14.5); WBC 8.38 10*3/uL (4.50-10.00)
[2025-02-26 07:46] LABS: African American GFR (CKD) >90 (>60 ml/min/1.73 sqM); Anion Gap 7 mmol/L; Blood Urea Nitrogen 14 mg/dL (9-20); Calcium 9.1 mg/dL (8.4-10.2); Carbon Dioxide 26 mmol/L (22-30); Chloride 103 mmol/L (98-107); Glucose 171 mg/dL (74-99); Non-African American GFR(CKD) >90 (>60 ml/min/1.73 sqM); Potassium 4.1 mmol/L (3.5-5.1); Sodium 136 mmol/L (137-145)
--- NOTE | 2025-02-26 08:04 | P.DS ---
Providers Date of admission: 02/24/25 07:14 Attending physician: Federico Rivera Primary care physician: Federico Rivera Hospital Course: This is a discharge summary on a 59-year-old white male who essentially had acute diarrhea which has now been resolved significant dehydration was noted. The patient states no abnormal dietary intake. No fever no chills. After rehydration laboratory became nominal and he was tolerating diet. No diarrhea was noted upon discharge. The patient will follow-up with me in 5 to 7 days. Patient Condition at Discharge: Fair Plan - Discharge Summary Discharge Rx Participant: No New Discharge Prescriptions: New Nicotine 21Mg/24Hr Patch [Habitrol] 1 patch TRANSDERM DAILY #30 patch Continue Niacin [Niaspan] 1,000 mg PO HS Rosuvastatin [Crestor] 20 mg PO HS Insulin Lispro [humaLOG Kwikpen] 34 unit SQ AC-TID tadalafiL 5 mg PO DAILY Ranolazine [Ranexa] 1,000 mg PO BID Insulin Glargine,Hum.rec.anlog [Lantus Solostar Pen] 85 units SQ HS Magnesium Oxide [Mag-Ox] 400 mg PO BID Brimonidine Tartrate [Alphagan P 0.2% Ophth Soln] 1 drops BOTH EYES BID Enalapril [Vasotec] 10 mg PO DAILY Pregabalin [Lyrica] 150 mg PO BID Ergocalciferol (Vitamin D2) [Drisdol (GEQ) 1,250 MCG (50,000 IU)] 1,250 mcg PO Q7D Latanoprost [Latanoprost 0.005%] 1 drop BOTH EYES HS Discharge Medication List Niacin [Niaspan] 1,000 mg PO HS 02/19/15 [History] Insulin Lispro [humaLOG Kwikpen] 34 unit SQ AC-TID 03/08/18 [History] Rosuvastatin [Crestor] 20 mg PO HS 03/08/18 [History] Enalapril [Vasotec] 10 mg PO DAILY 04/22/21 [History] Brimonidine Tartrate [Alphagan P 0.2% Ophth Soln] 1 drops BOTH EYES BID 02/24/25 [History] Ergocalciferol (Vitamin D2) [Drisdol (GEQ) 1,250 MCG (50,000 IU)] 1,250 mcg PO Q7D 02/24/25 [History] Insulin Glargine,Hum.rec.anlog [Lantus Solostar Pen] 85 units SQ HS 02/24/25 [History] Latanoprost [Latanoprost 0.005%] 1 drop BOTH EYES HS 02/24/25 [History] Magnesium Oxide [Mag-Ox] 400 mg PO BID 02/24/25 [History] Pregabalin [Lyrica] 150 mg PO BID 02/24/25 [History] Ranolazine [Ranexa] 1,000 mg PO BID 02/24/25 [History] tadalafiL 5 mg PO DAILY 02/24/25 [History] Nicotine 21Mg/24Hr Patch [Habitrol] 1 patch TRANSDERM DAILY #30 patch 02/26/25 [Rx] Follow up Appointment(s)/Referral(s): Federico Rviera MD [Primary Care Provider] - 1-2 days Discharge Disposition: HOME SELF-CARE
[2025-02-26 08:34] VITALS: BP 167/90; PULSE 80; TEMP 97.9
[2025-02-26] MEDS: lisinopriL 20 MG TAB PO SCH (08:43)
[2025-02-26 11:48] LABS: Glucose,Whole Blood 131 mg/dL (70-110)
--- NOTE | 2025-02-26 13:10 | PN ---
PROGRESS NOTE DATE OF SERVICE: 02/25/2025 SUBJECTIVE: This is a 59-year-old gentleman who was admitted with acute renal failure as well as ETOH abuse and gastroenteritis and some diarrhea today. No chest pain or palpitation. PHYSICAL EXAMINATION: VITAL SIGNS: Pulse is 82, blood pressure 149/60, and respirations 16. CHEST: Clear to auscultation. CARDIOVASCULAR: S1 and S2. ABDOMEN: Soft, nontender. NERVOUS SYSTEM: No focal deficit. LABORATORY DATA: Creatinine is 1.43, rest of the labs are noted. Sugar is 52. ASSESSMENT: 1. Acute renal failure possibly secondary to diarrhea. 2. Generalized weakness. 3. Alcohol abuse. 4. Hypoglycemia. 5. Alcohol withdrawals. 6. Coronary artery disease history. RECOMMENDATIONS AND DISCUSSION: I recommend to continue current medications and continue symptomatic treatment. Continue the current medications and continue with CIWA protocol. Monitor blood sugars closely. Further recommendations to follow. MMODL / IJN: [id number] /
== END 2025-02-26 13:33 | disposition home or self-care (01) ==
LOC: EC 02:51 → 6NMEDSUR 07:14 → 1SOBS 18:44
PROVIDERS: ADMIT Family Medicine; ATTEND Family Medicine
DX: K52.9 Noninfective gastroenteritis and colitis, unspecified (principal); N17.9 Acute kidney failure, unspecified; F10.139 Alcohol abuse with withdrawal, unspecified; I12.9 Hypertensive chronic kidney disease with stage 1 through stage 4 chronic kidney disease, or unspecified chronic kidney disease; N18.2 Chronic kidney disease, stage 2 (mild); E11.649 Type 2 diabetes mellitus with hypoglycemia without coma; E11.42 Type 2 diabetes mellitus with diabetic polyneuropathy; E11.22 Type 2 diabetes mellitus with diabetic chronic kidney disease; E86.0 Dehydration; G89.29 Other chronic pain; M54.9 Dorsalgia, unspecified; I25.2 Old myocardial infarction; Z71.41 Alcohol abuse counseling and surveillance of alcoholic; I25.10 Atherosclerotic heart disease of native coronary artery without angina pectoris; E87.8 Other disorders of electrolyte and fluid balance, not elsewhere classified; I95.9 Hypotension, unspecified; E66.9 Obesity, unspecified; Z68.34 Body mass index [BMI] 34.0-34.9, adult; F17.210 Nicotine dependence, cigarettes, uncomplicated; Z79.82 Long term (current) use of aspirin; Z79.620 Long term (current) use of immunosuppressive biologic; Z79.4 Long term (current) use of insulin; Z79.899 Other long term (current) drug therapy; Z95.5 Presence of coronary angioplasty implant and graft
CPT/HCPCS: 96372 ×2; 96360; 96361; 99285; 36415; 93005; 97161; 80053; 80048 ×2; 83605; 83735 ×2; 84484; 85025 ×2; 85027; 85610; 85730; 81001; 87324; 87045; 87046; G0378 ×4; S4990 ×3; J1644 ×2

== ENCOUNTER → 2025-04-07 | Outpatient (CLI) | payer BC ==
--- NOTE | 2025-04-07 23:36 | MR ---
EXAMINATION TYPE: MR brain/cspine wo/w DATE OF EXAM: 04/07/2025 10:10 PM COMPARISON: None. CLINICAL INDICATION: Male, 59 years old with history of M43.26 R25.1 M54.5, Weakness/tremors in BLE a nd hands. TECHNIQUE: Multiplanar, multiecho imaging on a 3.0 Rosemary magnet is performed through the brain. Stud y is performed within 24 hours of arrival to the hospital.Multiplanar, multiecho imaging on a 3.0 Missy la magnet is performed through the knee. IV Contrast: 11 mL Gadobutrol (None, if empty) FINDINGS: The craniovertebral junction is normal. The pituitary is normal. Diffusion-weighted imaging is performed. No abnormal hyperintensity is present to suggest an acute i ntracranial infarct or acute ischemic change. Mild periventricular white matter hyperintensities present within this chronic white matter ischemic change. Small focus of subcortical white matter changes in the left parietal lobe. Subcortical white matter changes in the right frontal lobe. There may be punctate area within the right frontal lobe ri ght parietal lobe. Findings are nonspecific but could be related to microvascular ischemic change or migraine headaches. No abnormal enhancement is evident. Ventricles and sulci are appropriate for the patient age. Some fluid is within the right mastoid air cells. Consider right mastoiditis. IMPRESSION: 1. Scattered deep white matter changes most likely on the basis of chronic white matter ischemic arango ge. 2. Consider some right mastoiditis. EXAMINATION TYPE: MR brain/cspine wo/w DATE OF EXAM: 04/07/2025 10:10 PM COMPARISON: None. CLINICAL INDICATION: Male, 59 years old with history of M43.26 R25.1 M54.5, Weakness/tremors in BLE a nd hands. TECHNIQUE: Multiplanar multiecho imaging on a 3.0 Rosemary magnet is performed through the cervical spin e. IV Contrast: 11 mL Gadobutrol (None, if empty) FINDINGS: The craniovertebral junction is normal. Vertebral body alignment is normal. C7-T1: No focal disc herniation or significant disc bulge is evident. No spinal canal stenosis or n eural foraminal stenosis is present. C6-7: Broad-based disc bulge is moderate anterior thecal sac compression. Cord contact 7. Mild cord f lattening may be present. No spinal canal stenosis. Uncovertebral joint hypertrophy contributes to bi lateral foraminal.. C5-6: C5 and C6 vertebral bodies have increased signal on T2-weighted sequences compatible with some edema. Correlate for recent injury. This has some enhancement post contrast imaging. Anterior vertebr al body spurring is present at these levels. Broad-based disc bulge is moderate anterior thecal sac c ompression. This is moderate flattening of the spinal cord at this level. AP diameter is 0.8 cm which is mildly narrowed. Severe right and moderate left foraminal stenosis is present. C4-5: Mild left paracentral disc bulge is present with mild anterior thecal sac compression. Some cor d contact may be present. Cord deformity is not clearly identified. No spinal canal stenosis or neura l foraminal stenosis.. C3-4: There is a right paracentral focal disc herniation with moderate anterior thecal sac compressio n. Some cord contact may be present. Cord deformity may be present. No spinal canal stenosis present. Right foraminal narrowing is present.. C2-3: Right paracentral disc bulging present without spinal cord contact or spinal canal stenosis. Ne ural foramina are patent. IMPRESSION: 1. Mild spinal canal stenosis secondary to broad-based disc bulge C5-6. Cord contact and cord flatten ing is present through this level. 2. Broad-based disc bulge C6-7 with cord contact and some flattening. No spinal canal stenosis. 3. Some osseous posttraumatic change may be present at C5 and C6. Correlate with the patient's histor y. 4. Right paracentral disc herniation C3-4 moderate anterior thecal sac compression may have cord cont act and cord deformity. 5. Right paracentral disc bulging without cord contact or stenosis C2-3. 6. Mild left paracentral disc bulge C4-5 without cord contact or cord deformity. [facility], , 04/07/2025 11:34 PM
== END | disposition home or self-care (01) ==
LOC: RADMRIMAIN 21:00
PROVIDERS: ATTEND Orthopaedic Surgery
DX: M50.321 Other cervical disc degeneration at C4-C5 level (principal); M43.26 Fusion of spine, lumbar region; R25.1 Tremor, unspecified; R90.82 White matter disease, unspecified; M48.02 Spinal stenosis, cervical region
CPT/HCPCS: 70553; 72156; A9585